=== PATIENT | male | born 1980 | race Caucasian/White ===

== ENCOUNTER 2017-07-27 12:08 | Emergency (ER) | payer OTHER ==
[~2017-07-27] VITALS: Ht 188 cm; Wt 74.4 kg
[~2017-07-27 12:08] MED LIST: BENTYL10 MG PO; BUSPIRONE HCL5 MG PO; EFFEXOR XR37.5 MG PO; EFFEXOR XR75 MG PO; HYDROCODON-ACE1 EA10 PO; LEVAQUIN500 MG PO; MOTRIN IB200 MG PO; NITROSTAT0.4 MG SL; NORCO 5-325 TA1 EACH PO; PRILOSEC OTC20 MG PO
[2017-07-27] MEDS ORDERED: ENSURE113 GM PO (12:31)
[2017-07-27] MEDS ORDERED: PREDNISONE20 MG PO (12:31)
[2017-07-27] MEDS ORDERED: SULFASALAZINE500 MG PO (12:32)
[2017-07-27] MEDS ORDERED: GOLYTELY SOLU4000 ML PO (15:36)
== END 2017-07-27 15:54 | disposition home or self-care (01) ==
LOC: ED 12:08
DX: K59.00 Constipation, unspecified (principal); Z87.891 Personal history of nicotine dependence; Z90.49 Acquired absence of other specified parts of digestive tract; Z88.0 Allergy status to penicillin; Z88.1 Allergy status to other antibiotic agents; Z79.52 Long term (current) use of systemic steroids
CPT/HCPCS: 74177; 80053; 81001; 83605; 83690; 85025; 96361; 96374; 96375; 99284; J1885; J2270; J2405; J7030; Q9967

== ENCOUNTER 2017-07-29 16:18 | Observation (INO) | payer OTHER ==
[~2017-07-29] VITALS: Ht 188 cm; Wt 80.0 kg
[~2017-07-29 16:18] MED LIST changes: +ENSURE113 GM PO; +GOLYTELY SOLU4000 ML PO; +PREDNISONE20 MG PO; +SULFASALAZINE500 MG PO
--- NOTE | 2017-07-29 18:09 | NUR ---
PT TO FLOOR WITH 2 GUARDS AND WHEELCHAIR. PT RATES PAIN IN ABDOMEN AND RECTUM /. ABDOMEN IS FIRM AND DISTENDED. 4 POINT RESTRAINTS. SOCKS UNDER LEG RESTRAINTS. NO IV ACCESS.
--- NOTE | 2017-07-29 18:56 | NUR ---
STARTED 20G IV IN LEFT FOREARM. PT TOLERATED WELL. JEROME LABS AND SENT DOWN. D5LR @ 125 STARTED. GUARDS INROOM.
--- NOTE | 2017-07-29 19:37 | NUR ---
PT TO IMAGING VIA WITH TECH AND MITCHEL X2, VIA WHEELCHAIR.
--- NOTE | 2017-07-29 21:30 | NUR ---
PT LAYING IN BED, WATCHING TV. REPORTS 05/08 PAIN, GAVE TORADOL FOR PAIN. PT STATES "TORADOL IS NOT GOING TO TOUCH THIS, THEY GAVE ME MORPHINE AND IT BARELY DID ANYTHING." PT ALSO REPORTED THAT DR PADILLA HAD SAID NO ENEMA'S WOULD BE GIVEN TONIGHT, PT REFUSED ENEMA AT THIS TIME, WILL CALL DR PADILLA AND CLARIFY ORDER. PT HAS BEEN UP TO THE BATHROOM SEVERAL TIMES VOIDING AND "TRYING TO HAVE A BM," ACCORDING TO PT AND MITCHEL. PT APPEARS RELAXED WHEN LAYING IN BED, CONVERSING WITH GUARDS AND WATCHING TV.
--- NOTE | 2017-07-29 21:35 | NUR ---
CLARIFIED ENEMA ORDER WITH DR PADILLA, ORDER WAS PLACED INCORRECTLY, NEW ORDERS RECIEVED AND PLACED IN EMAR. NO ENEMA TONIGHT. WILL WATCH FOR KUB IMAGES TONIGHT AND NOTIFY DR PADILLA WHEN THEY COME UP IN SYSTEM.
--- NOTE | 2017-07-29 22:29 | NUR ---
CALLED IMAGING IN REGARDS TO IMAGING THAT WAS DONE TONIGHT AT CHANGE OF SHIFT. MARY INFORMED RN THAT ORDER WAS NOT PUT IN STAT, SO THAT IT WOULD BE READ IN THE MORNING. RN REQUESTED IT BE READ TONIGHT, MARY STATED THAT SHE WOULD MAKE IT A STAT ORDER AND SEND IT TO GET READ TONIGHT.
--- NOTE | 2017-07-29 23:53 | NUR ---
checked in on pt. laying in bed, appears relaxed, watching motorcycle races on tv. continues to rate pain at "7-8/10," offered pt warm blankets, warm pack, or ice packs to help with pain, pt refused. also encouraged pt to ambulate in the halls, educated pt about how ambulating increases activity in the gut, pt refused at this time. pt has no needs at this time. call light in reach. noa x2 present. no redness or swelling around restraints.
--- NOTE | 2017-07-30 00:25 | NUR ---
PT CONTINUES TO COMPLAIN OF 8/10 PAIN. CALLED AND LEFT MESSAGE ON DR PADILLA'S VOICEMAIL.
--- NOTE | 2017-07-30 00:39 | NUR ---
NEW MEDICATION ORDER RECEIVED FOR PAIN/ANXIETY AND ENTERED INTO EMAR.
--- NOTE | 2017-07-30 01:02 | NUR ---
GAVE ATIVAN FOR ANXIETY AND PAIN. WILL CONTINUE TO MONITOR CLOSELY.
--- NOTE | 2017-07-30 01:37 | NUR ---
pt appears to be sleeping. rr wnl and unlabored. gaurds x2 remain in room. iv infusing wnl. lights out, tv on in room. call light within reach.
--- NOTE | 2017-07-30 03:39 | NUR ---
PT APPEARS TO BE SLEEPING. RR WNL AND UNLABORED. GAURDS REMAIN IN ROOM.
--- NOTE | 2017-07-30 06:54 | NUR ---
PT APPEARS TO BE SLEEPING. RR WNL AND UNLABORED. GAURDS IN ROOM. LIGHTS AND TV OFF IN ROOM.
--- NOTE | 2017-07-30 07:29 | NUR ---
REPORT RECIEVED FROM SEGUNDO WEST. PT ASLEEP, GUARDS IN ROOM. IV INFUSING. PT NPO FOR PROCEDURE.
--- NOTE | 2017-07-30 08:00 | NUR ---
Patient is laying in bed resting with his eyes closed at this time. white board updated.
--- NOTE | 2017-07-30 08:00 | NUR ---
ADMINISTERED IV MED. PT ASLEEP. WOKE WHEN ASKED QUESTIONS. GUARDS IN ROOM. RATES PAIN 7/10
--- NOTE | 2017-07-30 09:30 | NUR ---
Patient is resting in bed with eyes closed, SCD's applied to LLE.
--- NOTE | 2017-07-30 10:24 | NUR ---
PT OFF FLOOR WITH RN KIKI FOR SURGERY.
--- NOTE | 2017-07-30 11:26 | NUR ---
07/30/17 1126 Honey Fournier 1121-PATIENT ARRIVED TO PACU ON 6L MASK O2 SAT 99% SB HR 50'S NONAROUSABLE. ABDOMEN SOFT. GUARDS AT BEDSIDE.
--- NOTE | 2017-07-30 12:10 | NUR ---
PT BACK TO FLOOR WITH SEGUNDO LUNA FROM SCOPE. GUARDS IN ROOM. ASSISTED BACK TO BED AFTER BATHROOM. PT STATES HE WILL NOT DO THE ENEMA AND WOULD LIKE TO EAT. ALSO DID NOT WANT THE LAXATIVE MEDICATIONS. TOLD HIM HE HAD TO GET CLEANED OUT BEFORE EATING WOULD BE A GOOD IDEA. PT AGREED TO TAKE THE MEDICATIONS BUT NOT THE ENEMA. IVF AND SCDS REATTACHED. ORDERED LUNCH.
--- NOTE | 2017-07-30 15:48 | NUR ---
PT CONTINUES TO SLEEP. TALKED TO GUARDS FOR AWHILE AND PT DID NOT WAKE. IVF INFUSING.
--- NOTE | 2017-07-30 16:52 | NUR ---
PT CALLED TO SAY THAT HE IS "CRAPPING HIS BRAINS OUT". EXPLAINED THAT IT WAS THE GOAL AND EXPECTED. PT UPSET ABOUT THIS AND ARGUED THAT THIS WAS NOT "FIXING HIM". EXPLAINED THAT THE GOAL OF ADMISSION WAS GETTING RID OF THE IMPACTION AND HAVING A LOT OF STOOL WAS A GOOD SIGN.
--- NOTE | 2017-07-30 18:29 | NUR ---
PT OF FLOOR FOR XRAY. SL.
--- NOTE | 2017-07-30 18:41 | NUR ---
PT HAD SCOPE WITH LEVAGE. ABLE TO CLEAR MOST OF IT. ADMINSITERED SEVERAL LAXATIVES AND STOOL SOFT. TO RID REST OF STOOL . PT REPORTS ANAL LEAKAGE. KUB AT CHANGE OF SHIFT. DC IN THE MORNING.
--- NOTE | 2017-07-30 20:41 | NUR ---
Patient in bed, whiteboard updated, room tidied.
--- NOTE | 2017-07-30 21:08 | NUR ---
RECEIVED REPORT AT 1900. PT REFUSED SCHEDULED SENNA LAXATIVE. MD PADILLA WAS CALLED. PT STARTED TO GET AGITATED AND WANTED TO GO BACK TO [facility] BECAUSE I STRONGLY ADVISED HIM TO TAKE HIS SCHEDULED LAXATIVES. MD PADILLA CALLED BACK AT 2029 AND WE GOT ORDERS TO D/C THIS PT. D/C IS NOW IN PROGRESS. ALL LOBES WERE CLEAR, ABD IS MODERATELY DISTENDED, FIRM TO TOUCH AND TENDER. NORMAL BOWEL TONES ARE PRESENT IN ALL QUADRANTS. V/S ARE WDL.
[2017-07-30] MEDS ORDERED: SENNA8.6 MG PO (21:14)
[2017-07-30] MEDS ORDERED: REGLAN10 MG PO (21:14)
[2017-07-30] MEDS ORDERED: MIRALAX17 GM PO (21:15)
--- NOTE | 2017-07-30 21:39 | NUR ---
PT D/C AT 2131. IV D/C, EDUCATION DONE.
--- NOTE | 2017-08-01 08:27 | HP ---
[facility] [address], [place] [address] Signed ADMISSION DATE: 07/29/2017 PROBLEM: Probable fecal impaction, abdominal distention. HISTORY OF PRESENT ILLNESS: This 36-year-old white man is incarcerated at [facility], and a patient of Dr. Epifanio Garza there. He is known to me from the past having undergone treatment for a complex posterior [id number]-so-exr, requiring staged anal fistulotomy. He underwent colonoscopy prior to that time to assess for Crohn disease as it was uncertain regarding his family history. There was no such finding of Crohn's disease at that time. In the course of his convalescence, a number of months ago, the patient was transferred to [place], [place] in the [facility] system there. He recently returned to [place] having had an episode in September of this year of abdominal distention, probable fecal impaction. He was treated with various methods and ultimately recovered, though he does not remember many of the details. He did not require surgery or endoscopic evaluation. Most recently upon return to fci here, he was noted to have abdominal distention, liquid stools, and findings on CT scan performed in the past three days at [facility] to have probable fecal impaction including a fair amount of stool in the right colon, as well as the rectosigmoid. He was treated with an oral agent to induce bowel movements, which was unsuccessful. I saw him in the fci at the [facility] on Friday (yesterday), having been sent back to the fci from the emergency room the night before (Friday). A plain abdominal x-ray was performed at the fci, which I reviewed. That showed air in the left colon and transverse, and a fair amount of stool in the right colon, and probable stool in the rectum, and rectosigmoid. I had advised that he be given enemas. He did agree to one enema yesterday, and a rectal exam by Dr. Garza today apparently, showed stool, but the patient refused any further enema therapy. The patient describes poor control. I was called by Dr. Garza as progress was not being made with the patient's bowel function, and he did have abdominal distention, which was at least as much as it was yesterday. He has had no nausea or vomiting. He does not have severe abdominal pain in any way. He has been ambulating, and interacting as usual with others. There was some concern that his diarrhea and to dating this current episode was related to Crohn's disease; however, he has never had an established diagnosis of Crohn's disease. Steroids were withdrawn. He was taking prednisone 60 mg daily for a few days Electronically Signed By: KENIA PADILLA MD 08/01/17 0827 PATIENT NAME: KIARA YUN HISTORY AND PHYSICAL DATE OF : 78 PHYSICIAN: KENIA PADILLA MD REPORT #: [id number] REPORT IS CONFIDENTIAL AND NOT TO BE RELEASED WITHOUT AUTHORIZATION [address] [address] Signed at least. PAST MEDICAL HISTORY: Notable for a complex [id number]-vd-tty as previously described, but no other known significant medical problems otherwise. He underwent his completion complex fistulotomy on October 08, 2016. REVIEW OF SYSTEMS: He denies any shortness of breath or chest pain. He has had no hematemesis, or known blood per rectum. The patient feels he has poor sphincter control in some ways, but grossly is continent. The patient is suspicious of having another fistula, though my examination yesterday in the fci clinic showed a perfect healing of his anorectum, normal sphincter tone, and no evidence of fistula that I could see. PHYSICAL EXAMINATION: GENERAL: A thin white man with multiple tattoos accompanied by two fci guards. He has manacled at the ankles and wrists. HEENT: Trachea is midline. CHEST: Clear. HEART: Regular without murmur. ABDOMEN: Mildly distended. There is no focal mass or tenderness. EXTREMITIES: Show no clubbing, cyanosis, or edema. LAB STUDIES: Pending. A CBC and a Chem profile have been ordered. Note is made of the white count actually being 8.0, hematocrit 42.1, platelets 286,000. Plain abdominal x-rays are pending. ASSESSMENT: The patient has apparent fecal impaction causing poor bowel function and with a cathartic given from above two days ago in the emergency room has abdominal distention. He may require a manual disimpaction, but for now, we will obtain his abdominal KUB to be certain there is no sign of sigmoid volvulus or other similar problem, as well as provide a baseline for progress studies. We will give mineral oil orally, and a suppository tonight. Tomorrow, he may likely benefit from sedation with colonoscopy or other similar intervention in particular manual fecal disimpaction if indicated. This will be predicated upon the imaging studies of course. Electronically Signed By: KENIA PADILLA MD 08/01/17 0827 PATIENT NAME: KIARA YUN HISTORY AND PHYSICAL DATE OF : 78 PHYSICIAN: KENIA PADILLA MD REPORT #: [id number] REPORT IS CONFIDENTIAL AND NOT TO BE RELEASED WITHOUT AUTHORIZATION [facility] [address] [place] [place], [place] [address] Signed MD ZAC Loco/KOBE /[id number] cc: Epifanio Garza MD Electronically Signed By: KENIA PADILLA MD 08/01/17 0827 PATIENT NAME: KIARA YUN HISTORY AND PHYSICAL DATE OF : 78 PHYSICIAN: KENIA PADILLA MD REPORT #: [id number] REPORT IS CONFIDENTIAL AND NOT TO BE RELEASED WITHOUT AUTHORIZATION
--- NOTE | 2017-08-01 08:27 | OR ---
[facility] [address] [place], [place] [address] Signed DATE OF OPERATION: 07/30/2017 SURGEON: Kenia Padilla MD PREOPERATIVE DIAGNOSIS: Recurrent fecal impaction, uncertain history of possible Crohn's disease. POSTOPERATIVE DIAGNOSES: 1. No evidence of inflammatory bowel disease. 2. Soft fecal material in high rectum and portions of right colon. PROCEDURE: Total colonoscopy with lavage and decompression. ANESTHESIA: Intravenous sedation, propofol infusion. Jenny Layne CRNA INDICATION: This is a 36-year-old white man, who is a prisoner at [facility] and the patient of Dr. Epifanio Garza. He is known to me from the past for complex perianal fistula repair. He has never been proven to have Crohn's disease, though he does have a family history of it. In September of this year, in [place], [place], he had an episode of probable fecal impaction, which resolved with nonsurgical methods. He has had recurrent apparent impaction of stool recently several days ago in [facility], undergoing CT scan of the abdomen confirming stool in the rectum and right colon, seen elsewhere. He was treated with a MiraLAX prep from above, which only caused abdominal distention and not improve his situation. He was seen in the [facility] by me two days ago at my [facility] clinic, having a repeat KUB with complaints of bloating and so forth. He did have an abdominal distention to be sure. The x-ray did not show resolution of some distended air in the left colon and sigmoid, it did not show cecal enlargement or any evidence of volvulus. The enema therapy was initiated under the direction of Dr. Garza, but the patient ultimately refused any further enemas, and given his vexing situation I accepted him in transfer from Dr. Garza, from the [facility] for admission yesterday for further evaluation and care. His lab studies are normal including CBC. A plain KUB performed at [facility] yesterday shows air in the left colon and transverse colon, some stool in the rectum and Electronically Signed By: KENIA PADILLA MD 08/01/17 0827 PATIENT NAME: KIARA YUN OPERATIVE REPORT DATE OF : 78 PHYSICIAN: KENIA PADILLA MD REPORT #: [id number] REPORT IS CONFIDENTIAL AND NOT TO BE RELEASED WITHOUT AUTHORIZATION [facility] [address] [place], [place] [address] Signed some stool in the right colon. The x-ray today showed some improvement. He was given only a glycerin suppository and mineral oil orally yesterday. He has not had any significant fecal output particularly. On that basis, he is taken to IV sedation, where he will undergo colonic evaluation to assess for stricture, neoplasm that is causing obstruction as well as colonic lavage and decompression as appropriate. He understands risks of bleeding, infection, perforation, and wished to proceed. FINDINGS: There is soft stool on rectal exam in the mid to upper rectum. There was certainly no hard mass in anyway. With colonoscopy, the area was able to be skirted and scope passed beyond this quite easily. Most of the colon had no stool in it. The right colon and parts of sigmoid had some stool, but it was all soft. Lavage was undertaken throughout the colon and minimal air insufflated. There were no complications. Of special note, there was no sign of inflammatory bowel disease, stricture, neoplasm. DESCRIPTION OF PROCEDURE: The patient was brought to the endoscopy suite and placed in lateral decubitus position. Abdominal palpation was undertaken showing less distention than yesterday. He had no tenderness. He was given intravenous sedation with propofol infusional technique by the supervisor buffing and pasting with full cardiopulmonary monitoring. Digital rectal examination was undertaken showing no stool, low in the rectum, and only a soft putty-like stool at the high rectum. The Olympus video colonoscope was passed in the rectum and there was no evidence of inflammatory bowel disease of the rectum. With air insufflation and some irrigation, the stool was able to be directed to the side and the scope passed beyond the stool bolus into the rectosigmoid, which was largely free of any stool. The scope was advanced rather easily to the left colon and transverse colon, taking special care to avoid insufflation of air as much as possible. Ultimately, the hepatic flexure and right colon were encountered. Irrigation was undertaken and soft stool was once again encountered. The scope was manipulated past this ultimately to the cecum. Fair amount of irrigation was used to lavage the colon in this way. Once the cecum was obtained, no further passage of the scope was deemed advisable or particularly possible. The ileocecal valve was not surely identified, though landmarks were highly suggestive that this represented the cecal area. Abdominal wall palpation confirmed this. The scope was then withdrawn with irrigation of the water that was used for the scope, and decompression of endoscopic methods undertaken. The scope was ultimately passed to the rectum and again confirming no evidence of inflammatory bowel disease or anatomic stricture causing occlusion in anyway. The patient was taken to the recovery room in good condition. CONCLUDING DIAGNOSIS: Functional constipation problem, not known to be a lifelong issue. Electronically Signed By: KENIA PADILLA MD 08/01/17 0827 PATIENT NAME: KIARA YUN MARIAH OPERATIVE REPORT DATE OF : 78 PHYSICIAN: KENIA PADILLA MD REPORT #: [id number] REPORT IS CONFIDENTIAL AND NOT TO BE RELEASED WITHOUT AUTHORIZATION [facility] [address] [place] [address] Signed PLAN: We will initiate Reglan for his gastrointestinal stimulatory activity. We will recommend at least one tap water enema and initiate mag citrate ingestion of one bottle and Senokot as a stimulant laxative. MD ZAC Loco/MODL /[id number] cc: Epifanio Garza MD Electronically Signed By: KENIA PADILLA MD 08/01/17 0827 PATIENT NAME: KIARA YUN OPERATIVE REPORT DATE OF : 78 PHYSICIAN: KENIA PADILLA MD REPORT #: [id number] REPORT IS CONFIDENTIAL AND NOT TO BE RELEASED WITHOUT AUTHORIZATION
== END 2017-07-30 21:32 | disposition home or self-care (01) ==
LOC: MS 16:18
PROVIDERS: ADMIT Surgery
PROC: 0D7E8ZZ Dilation of Large Intestine, Via Natural or Artificial Opening Endoscopic (ICD-10-PCS; principal; 2017-07-30 11:15)
DX: K59.04 Chronic idiopathic constipation (principal); K31.9 Disease of stomach and duodenum, unspecified; Z88.1 Allergy status to other antibiotic agents; Z88.0 Allergy status to penicillin
CPT/HCPCS: 00810; 74000; 74020; 80053; 82247; 82465; 83615; 84100; 84478; 84550; 85025; 96374; 96375; 96376; G0378; J1885; J2060; J2250; J2405; J2704; J3010; J7120

== ENCOUNTER 2017-08-02 00:25 | Emergency (ER) | payer OTHER ==
[~2017-08-02] VITALS: Ht 188 cm; Wt 76.2 kg
[~2017-08-02 00:25] MED LIST changes: +MIRALAX17 GM PO; +REGLAN10 MG PO; +SENNA8.6 MG PO
[2017-08-02] MEDS ORDERED: LEXAPRO5 MG PO (00:42)
== END 2017-08-02 03:16 | disposition home or self-care (01) ==
LOC: ED 00:25
DX: K59.00 Constipation, unspecified (principal); Z87.891 Personal history of nicotine dependence; Z90.49 Acquired absence of other specified parts of digestive tract; Z88.0 Allergy status to penicillin; Z88.1 Allergy status to other antibiotic agents; Z79.899 Other long term (current) drug therapy
CPT/HCPCS: 74000; 80053; 81001; 83690; 85025; 99283

== ENCOUNTER 2017-10-16 11:43 | Inpatient (IN) | payer OTHER ==
[~2017-10-16] VITALS: Ht 188 cm; Wt 76.4 kg
[~2017-10-16 11:43] MED LIST changes: +LEXAPRO10 MG PO
[2017-10-23] MEDS ORDERED: NORCO 5-325 TA1 EACH PO (06:08)
[2017-10-23] MEDS ORDERED: LINZESS290 MCG PO (06:08)
[2017-10-23] MEDS ORDERED: DULCOLAX10 MG PR (15:52)
--- NOTE | 2017-10-23 19:45 | OR ---
[facility] [address], [place] [address] Signed DATE OF OPERATION: 10/23/2017 SURGEON: Kenia Padilla MD PREOPERATIVE DIAGNOSIS: Severe progressive symptomatic colonic inertia. POSTOPERATIVE DIAGNOSIS: Severe progressive symptomatic colonic inertia. PROCEDURE: Subtotal colectomy with side-to-end ileoproctostomy. ANESTHESIA: General endotracheal, Lelo Harrell CRNA. INDICATION: This 37-year-old white man, who is incarcerated at [facility] and has had progressive episodes of dilated colon and poor bowel function. Many details of his evaluation along the way can be found in another record, but he is deemed at this time to likely have severe colonic dysmotility syndrome, unresponsive to medications and other measures including Linzess. Consideration has been made for subtotal colectomy to improve his symptoms. He understands the risks of bleeding, infection, anastomotic failure and most importantly failure to cure his symptoms, however, I think it will. He has no known history of inflammatory bowel disease. Colonoscopy has been normal except for dilated colon. No polyps and no cancer. FINDINGS: The colon was redundant and dilated. There were areas of solid stool within the colon. The rectum was dilated and the sigmoid and left colon was essentially nonfixed. The right colon also, however, was rather dilated. Both the splenic flexure and hepatic flexure are quite high and challenging to mobilize fully, but was accomplished well. The small bowel was entirely normal as was the stomach, gallbladder, and liver. He is known to have hepatitis C, which showed no manifestations of that on examination. By conclusion, a side-to-end ileoproctostomy has been accomplished to the mid upper rectum. The peritoneum has been reapproximated largely so as to minimize raw surface area to minimize chances of adhesion formation for small bowel. DESCRIPTION OF PROCEDURE: The patient was brought to the operating room, given a general endotracheal anesthetic. Electronically Signed By: KENIA PADILLA MD 10/23/17 1945 PATIENT NAME: KIARA YUN OPERATIVE REPORT DATE OF : 78 PHYSICIAN: KENIA PADILLA MD REPORT #: [id number] REPORT IS CONFIDENTIAL AND NOT TO BE RELEASED WITHOUT AUTHORIZATION [facility] [address], [place] [address] Signed Preoperative antibiotic Ancef and Flagyl were given. Sequential compression device stockings were used and heparin subcutaneously administered. After satisfactory general endotracheal anesthesia, the abdomen was prepared with chlorhexidine solution and draped sterilely. An incision was made cephalad to the umbilicus and extended to the symphysis pubis. The patient does not have a large body habitus. The abdomen was entered without problem and examination undertaken. A very redundant and dilated left colon and transverse colon were noted. There was solid stool particularly in the mid to upper rectum had small bowel was examined from the ligament of Treitz to the terminal ileum, which was normal. 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 The gallbladder itself was normal as was the liver. There was no evidence of cirrhotic changes. The stomach was normal as well as nasogastric tube was used to decompress it temporarily. A Bookwalter retractor was affixed to the table and the small bowel packed to the right side of the abdomen. The white line of Toldt was incised at the area of the left colon and sigmoid dissection carried inferiorly. Very redundant and nonfixed sigmoid and left colon were noted. This was freed down to the upper to mid rectum. Dissection was carried cephalad allowing for mobilization of splenic flexure. This was rather long and laborious as splenic flexure of the colon was extremely high. This required a fair amount of manipulation, so as to not require extending the incision any higher than necessary. Ultimately, it was freed fully. The bowel was then packed to the left side of the abdomen and attention turned to the right colon. The right colon was freed from its attachments using blunt electrocautery dissection, mobilizing it to the midline as well. The C-loop of the duodenum was identified and unharmed of course. Over the transverse colon, the omentum was freed from the transverse colon, leaving it with the stomach. The stomach was normal. The transverse mesocolon was free completely in an anatomic and avascular plane. A fair amount of adhesions of the hepatic flexure up to the area of the gallbladder, more so than I would have expected, but ultimately this was freed as well. Ultimately, the entire colon including the right transverse, left sigmoid and so forth were completely mobilized. Attention was then turned towards securing of the mesenteric pedicles. Again, beginning at the sigmoid colon, major vascular pedicles were secured with heavy clamps and doubly ligated with 0 silk ties, scoring the peritoneum as I went. This included approximately to the region in the middle colic artery into the right side as well. Care was taken to leave good vascularity to the ileum. The colon was at this point almost completely freed. A HEIDE stapling device was used to transect the terminal ileum and flushed with the cecum. The long colon appeared like a boa constrictor at this point was explanted from the abdomen and the lower aspect dissected free. The rectum was rather bulky and some semi-formed stool in the rectum was milked back into the sigmoid area. The area of Electronically Signed By: KENIA PADILLA MD 10/23/171944 PATIENT NAME: KIARA YUN OPERATIVE REPORT DATE OF : 78 PHYSICIAN: KENIA PADILLA MD REPORT #: [id number] REPORT IS CONFIDENTIAL AND NOT TO BE RELEASED WITHOUT AUTHORIZATION [facility] [address], [place] [address] Signed the mid to upper rectum was deemed appropriate for transection. Electrocautery was used to free the mesentery to that area and 2 bowel clamps applied. The rectum was transected transversely with prostate scissors and passed off the table. Photographs were taken throughout the course of operation thus far including the specimen itself. The small bowel was then examined carefully in the natural anatomic position of the small bowel discerned to allow for a non-torsed tension-free ileorectal anastomosis. The stapled end of the terminal ileum was oversewn with interrupted 3-0 silk suture. A side-to-end ileoproctostomy was then undertaken in 2-layer technique of interrupted 3-0 silk in a seromuscular layer and 3-0 Vicryl in the mucosal layer. A tension-free anastomosis was completely viable was noted. The raw surfaces of the retroperitoneum were covered by reapproximating peritoneal remnants with interrupted 3-0 silk suture. Irrigation was undertaken and gown and gloves were changed. Photographs were once again taken. Through a separate stab incision, a 7 mm flat Aquiles drain was placed into the left abdomen, anticipating drainage of pelvic fluid as necessary. The omentum was replaced over the abdominal viscera after the small bowel was replaced to a normal anatomic configuration. The midline fascia was reapproximated with running bidirectional #1 PDS suture. Subcutaneous tissue was irrigated and 20 mL of 0.25% Marcaine was injected in the fascial layer for postoperative analgesic effect. The skin was then closed with running subcuticular 3-0 Vicryl. Steri-Strips were applied as was Mepilex silver sponge dressing and an OpSite. The patient tolerated the procedure well. The operation was prolonged, complicated, and difficult lasting 4 hours essentially. There were no complications. Blood loss was 150 mL (probably less really). MD ZAC Loco/MONAL /[id number] cc: Epifanio Garza MD Electronically Signed By: KENIA PADILLA MD 10/23/17 1945 PATIENT NAME: JAMAKIARA MARIAH OPERATIVE REPORT DATE OF : 78 PHYSICIAN: KENIA PADILLA MD REPORT #: [id number] REPORT IS CONFIDENTIAL AND NOT TO BE RELEASED WITHOUT AUTHORIZATION
--- NOTE | 2017-10-31 14:18 | OR ---
[facility] [address], [place] [address] Signed DATE OF OPERATION: 10/30/2017 SURGEON: Kenia Padilla MD PREOPERATIVE DIAGNOSIS: Persistent ileus, need for total parental nutrition. POSTOPERATIVE DIAGNOSIS: Persistent ileus, need for total parental nutrition. PROCEDURE: Left subclavian Arrow blue tip triple-lumen catheter, central venous catheter placement. ANESTHESIA: A 1% lidocaine. INDICATION: This 37-year-old white man is incarcerated at [facility] and has undergone subtotal colectomy with ileoproctostomy for colonic inertia. He has had developed early on a generalized ileus, which has been unresponsive to the usual measures. Central venous catheterization for TPN is needed at this point. The risks of bleeding, infection, and pneumothorax were reviewed with him. He understands and wished to proceed. FINDINGS: Dark nonpulsatile blood was noted from the left subclavian vein. Good function of the catheter was noted at the conclusion of the procedure. Postprocedure chest x-ray shows no evidence of complication and good position of the catheter. DESCRIPTION OF PROCEDURE: In the mild Trendelenburg position with the arms at the side, the left infraclavicular and right neck and right infraclavicular area prepared with a chlorhexidine solution and draped sterilely. A 1% lidocaine was injected beneath the left clavicle. Using a Seldinger technique, the left subclavian vein was easily accessed showing dark nonpulsatile blood. A flexible J-wire was passed down the needle. The needle was removed. The site was incised with an #11 blade and dilated with the enclosed blue dilator and a previously inspected and irrigated Arrow blue tip triple-lumen catheter was passed over the wire into the central venous system. The wire was then withdrawn. Aspiration on the distal port showed dark nonpulsatile blood. All ports were irrigated with saline. The catheter was withdrawn a bit, secured to the skin with the enclosed Electronically Signed By: KENIA PADILLA MD 10/31/17 1418 PATIENT NAME: KIARA YUN OPERATIVE REPORT DATE OF : 78 PHYSICIAN: KENIA PADILLA MD REPORT #: [id number] REPORT IS CONFIDENTIAL AND NOT TO BE RELEASED WITHOUT AUTHORIZATION [address] [address] Signed collar device, and additionally secured to the catheter. An anti-infective disc was applied as was a SorbaView dressing. Subsequently, a chest x-ray was performed showing good position of the catheter without sign of complication. MD ZAC Loco/KOBE /[id number] cc: Epifanio Garza MD Electronically Signed By: KENIA PADILLA MD 10/31/17 1418 PATIENT NAME: KIARA YUN OPERATIVE REPORT DATE OF : 78 PHYSICIAN: KENIA PADILLA MD REPORT #: [id number] REPORT IS CONFIDENTIAL AND NOT TO BE RELEASED WITHOUT AUTHORIZATION
[2017-11-02] MEDS ORDERED: MAPAP325 MG PO (09:58)
[2017-11-02] MEDS ORDERED: IBUPROFEN600 MG PO (09:58)
[2017-11-02] MEDS ORDERED: FAMOTIDINE20 MG PO (10:00)
--- NOTE | 2017-11-04 10:43 | DS ---
[facility] [address], [place] [address] Signed ADMISSION DATE: 10/23/2017 DISCHARGE DATE: 11/02/2017 REASON FOR ADMISSION: This 37-year-old white man is incarcerated at [facility] retirement and a patient of Dr. Epifanio Garza there. He has had progressive episodes over the past few years of dilated colon and poor bowel function. He is ultimately deemed likely to have severe colonic dysmotility syndrome (colonic inertia), unresponsive to medications and other measures including Linzess medication. He is admitted at this time to undergo subtotal colectomy to improve his symptoms. He understands the risks of bleeding, infection, anastomotic failure, failure to cure his symptoms and other unforeseen complications. Understanding this, he wished to proceed. Of note, he has had colonoscopy, which has been normal except for dilated colon. No polyps or cancer or colitis. PERTINENT PHYSICAL EXAM: GENERAL: A thin white man with multiple tattoos. NECK: Trachea is midline. CHEST: Clear. HEART: Regular without murmur. ABDOMEN: Generally distended. He has no focal tenderness, mass or ascites. EXTREMITIES: Show no clubbing, cyanosis, or edema. HOSPITAL COURSE: On October 23, 2017, he underwent subtotal colectomy with side-to-end ileoproctostomy. Special care was taken to align the small bowel for rectal anastomosis and anatomically appropriate configuration based on the patient's small bowel. The small bowel itself was entirely normal, not dilated, thin and without sign of inflammatory lesions or other problems. A drain was placed in the pelvis. The anastomosis was to the upper to mid rectum. There were no other findings in the abdomen of concern, specifically the liver appeared normal despite a known history of hepatitis C. The gallbladder appeared normal as well. Postoperatively, he was allowed to have clear liquids promptly after operation in efforts to enhance recovery after surgery. He was not given any opiates during the anesthesia itself, though postoperatively was given a Dilaudid and subsequently a morphine OTHER [employer]. Predictably, he did have some considerable incisional pain. He was also given intravenous Tylenol, intravenous Toradol, and intravenous Ativan as needed for assistance in his pain control. He was mobilized promptly. Within 48 hours, he had developed what appeared to be a rather considerable ileus. KUB showed dilated loops of bowel. Electronically Signed By: KENIA PADILLA MD 11/04/17 1043 PATIENT NAME: KIARA YUN DISCHARGE SUMMARY DATE OF : 78 PHYSICIAN: KENIA PADILLA MD REPORT #: [id number] REPORT IS CONFIDENTIAL AND NOT TO BE RELEASED WITHOUT AUTHORIZATION [facility] [address], [place] [address] Signed A nasogastric tube was reluctantly accepted, which I placed, in which it passed without problem delivering a fair amount of bilious fluid. That was allowed to remain for nearly 72 hours, at which point, he began having some bowel function, though he still had some abdominal distention. The nasogastric tube was removed and he was not advanced on his oral intake, but allowed for the bowel to recuperate. He was started on intravenous Reglan and erythromycin in hopes of having some stimulation of the small bowel. Serial x-rays continued to show fair amount of air within the bowel. A CT scan was performed to be certain there was no evidence of internal hernia, volvulus, or other impediment to enteric flow and it showed only dilated loops of bowel. No sign of obstruction or torsion in any way. There was no sign of intraabdominal abscess. The drain was placed in the pelvis, drained serosanguineous fluid only. A central line was placed to allow for TPN. It is noted he had marginal baseline nutrition to begin with due to several months of poor oral intake. Within 24-48 hours, he had improvement of his bowel function, liquid bowel movements and decreasing abdominal distention. His prokinetic agents were withdrawn and he was clearly withdrawn from any opiate use despite some protestation from him, though his pain was actually well controlled with intravenous Tylenol, Toradol, and ultimately oral analgesic agents. By day of discharge, he is ambulating well. Incision is healing nicely. The drain has been removed. He is having bowel movements, though generally liquid, but well controlled and has far less abdominal distention. Plain abdominal x-ray the day prior to discharge still shows air within the small bowel, but no signs of obstruction. I expect him to continue to recover. The patient wants to be discharged quite a bit and has been somewhat disruptive in that intention, but I believe he is medically ready to be discharged under the watchful eye of Dr. Garza, likely to go to the [facility]. DIETARY RESTRICTIONS: Include primarily avoidance of soda pop and carbonated beverages. He will be strictly forbidden of opiates of any sort as they are likely an underlying cause of his enteric dysmotility perioperatively. The patient was on Lexapro previously and this can have gastrointestinal effects commonly including diarrhea or constipation. I would avoid those or choose another agent if possible. Electronically Signed By: KENIA PADILLA MD 11/04/17 1043 PATIENT NAME: KIARA YUN MARIAH DISCHARGE SUMMARY DATE OF : 78 PHYSICIAN: KENIA PADILLA MD REPORT #: [id number] REPORT IS CONFIDENTIAL AND NOT TO BE RELEASED WITHOUT AUTHORIZATION [facility] [address], [place] [address] Signed FOLLOWUP PLANS: We will see him back in the retirement clinic in the near future. He is permitted to walk. He is permitted to shower. There are no sutures to remove. Steri-Strips are in place. He should lift no more than 20 pounds for the next 3 weeks. DISCHARGE MEDICATIONS: 1. Ibuprofen 600 mg p.o. q.6 hours p.r.n. pain, #60. 2. Tylenol 650 mg p.o. q.6 hours p.r.n. pain, #90. 3. Pepcid 20 mg p.o. b.i.d., #60. 4. Nutritional supplement, Ensure two times daily as able. 5. He will discontinue [place], which he is previously on, Linzess, Dulcolax, Lexapro, and Reglan. DISCHARGE DIAGNOSES: 1. Colonic inertia, status post subtotal colectomy with ileorectal anastomosis. 2. Postoperative ileus (resolved). 3. Hepatitis C. 4. Anxiety, depression disorder. 5. Allergy to penicillins and Cipro. FOLLOWUP: He will have to see me in retirement clinic in the near future. MD ZAC Loco/KOBE /[id number] cc: Epifanio Garza MD Electronically Signed By: KENIA PADILLA MD 11/04/17 1043 PATIENT NAME: KIARA YUN DISCHARGE SUMMARY DATE OF : 78 PHYSICIAN: KENIA PADILLA MD REPORT #: [id number] REPORT IS CONFIDENTIAL AND NOT TO BE RELEASED WITHOUT AUTHORIZATION
== END 2017-11-02 10:56 | disposition home or self-care (01) | DRG 330 ==
LOC: DSVR 10-23 05:26 → MS 10-23 05:26
PROVIDERS: ADMIT Surgery
PROC: 0DBE0ZZ Excision of Large Intestine, Open Approach (ICD-10-PCS; principal; 2017-10-23 06:45)
PROC: 05H633Z Insertion of Infusion Device into Left Subclavian Vein, Percutaneous Approach (ICD-10-PCS; 2017-10-30)
PROC: 3E0436Z Introduction of Nutritional Substance into Central Vein, Percutaneous Approach (ICD-10-PCS; 2017-10-30)
DX: K59.8 Other specified functional intestinal disorders (principal); K56.7 Ileus, unspecified; Z88.0 Allergy status to penicillin
CPT/HCPCS: 00790; 36415; 71045; 74019; 74020; 74177; 80048; 80053; 80061; 82247; 82465; 83615; 83735; 84100; 84134; 84478; 84550; 85025; 85610; 85730; 94762; J0131; J0330; J0690; J0735; J1100; J1170; J1364; J1644; J1885; J2060; J2250; J2270; J2405; J2550; J2704; J2765; J2997; J3010; J3475; J7120; Q9967

== ENCOUNTER 2017-11-08 14:53 | Emergency (ER) | payer OTHER ==
[~2017-11-08] VITALS: Ht 188 cm; Wt 76.4 kg
[~2017-11-08 14:53] MED LIST changes: +DULCOLAX10 MG PR; +FAMOTIDINE20 MG PO; +IBUPROFEN600 MG PO; +LINZESS290 MCG PO; +MAPAP325 MG PO
[2017-11-08] MEDS ORDERED: ZOFRAN ODT4 MG PO (17:38)
== END 2017-11-08 17:48 | disposition home or self-care (01) ==
LOC: ED 14:53
DX: R10.9 Unspecified abdominal pain (principal); Z90.49 Acquired absence of other specified parts of digestive tract; Z87.891 Personal history of nicotine dependence; Z88.0 Allergy status to penicillin; Z88.1 Allergy status to other antibiotic agents; Z79.899 Other long term (current) drug therapy
CPT/HCPCS: 74177; 80053; 81001; 83605; 83690; 85025; 96361; 96374; 99284; J2405; J7030; Q9967

== ENCOUNTER 2020-04-21 20:34 | Observation (INO) | payer OTHER ==
[~2020-04-21] VITALS: Ht 188 cm; Wt 89.4 kg
--- OUTSIDE RECORDS SUMMARY | ~2020-04-21 | XMS | Encounter Summary ---
Demographics + + + | Address | [address] | | | [place] [address] | + + + | Home Phone | | + + + | Preferred Language | Unknown | + + + | Marital Status | Single | + + + | Yazidism Affiliation | Unknown | + + + | Race | Unknown | + + + | Ethnic Group | Unknown | + + + Author + + + | Author | [facility] | | | and [place] | + + + | Organization | [facility] | | | and [place] | + + + | Address | Unknown | + + + | Phone | Unavailable | + + + Support + + +---------+ + | Name | Relationship | Address | Phone | + + +---------+ + | [place] | ECON | Unknown | | | Corrections | | | | + + +---------+ + Care Team Providers + +------+ + | Care Textile Stylist Name | Role | Phone | + +------+ + | Kevin Martin MD | PCP | | + +------+ + Encounter Details +--------+ + + + + | Date | Type | Department | Care Team | Description | +--------+ + + + + | 09/16/ | Orders Only | [facility] | [place], | Diarrhea, | | 2019 | | GENERAL SURG[address] | unspecified type | | | | [address] | [address] | (Primary Dx) | | | | [place], [place] | [place] [address] | | | | | [id number] | [phone] | | | | | [phone] | | | +--------+ + + + + Social History + +-------+ +--------+------+ | Tobacco Use | Types | Packs/Day | Years | Date | | | | | Used | | + +-------+ +--------+------+ | Former Smoker | | 1.5 | | | + +-------+ +--------+------+ + +---+---+---+ | Smokeless Tobacco: | | | | | Former User | | | | + +---+---+---+ + + +---------+ + | Alcohol Use | Drinks/Week | oz/Week | Comments | + + +---------+ + | Not Currently | | | | + + +---------+ + + + + | Sex Assigned at | Date Recorded | | | | + + + | Not on file | | + + + documented as of this encounter Plan of Treatment Not on filedocumented as of this encounter Visit Diagnoses + + | Diagnosis | + + | Diarrhea, unspecified type - Primary | + + documented in this encounter"
--- OUTSIDE RECORDS SUMMARY | ~2020-04-21 | XMS | Encounter Summary ---
Demographics + + + | Address | [address] | | | [place] [address] | + + + | Home Phone | | + + + | Preferred Language | Unknown | + + + | Marital Status | Single | + + + | Mormon Affiliation | Unknown | + + + | Race | Unknown | + + + | Ethnic Group | Unknown | + + + Author + + + | Author | [facility] | | | and [place] | + + + | Organization | [facility] | | | and [place] | + + + | Address | Unknown | + + + | Phone | Unavailable | + + + Support + + +---------+ + | Name | Relationship | Address | Phone | + + +---------+ + | [place] | ECON | Unknown | | | Corrections | | | | + + +---------+ + Care Team Providers + +------+ + | Care Nonprofit Manager Name | Role | Phone | + +------+ + | Kevin Nath MD | PCP | | + +------+ + Reason for Referral Diagnostic/Screening (Routine) + +--------+ + + + + | Status | Reason | Specialty | Diagnoses / | Referred By | Referred To | | | | | Procedures | Contact | Contact | + +--------+ + + + + | Pending | | Radiology | Diagnoses | Ailbrendani, | [facility] | | Review | | | Lower | Delroy Miller MD | REGIONAL | | | | | abdominal | [address] | MEDICAL | | | | | pain | [address] | [address] | | | | | Procedures | [address] | | | | | CT Abdomen | [place], [place] | [place], [place] | | | | | Pelvis w | [address] | [address] | | | | | Contrast | Phone: | Phone: | | | | | | [phone] | [phone] | | | | | | Fax: | Fax: | | | | | | [phone] | [phone] | + +--------+ + + + + Reason for Visit Auth/Cert +--------+--------+ + + + + | Status | Reason | Specialty | Diagnoses / | Referred By | Referred To | | | | | Procedures | Contact | Contact | +--------+--------+ + + + + | | | | Diagnoses | | | | | | | Diarrhea, | | | | | | | unspecified | | | | | | | type | | | | | | | Procedures | | | | | | | COLONOSCOPY | | | +--------+--------+ + + + + Encounter Details +--------+ + + + + | Date | Type | Department | Care Team | Description | +--------+ + + + + | 11/24/ | Hospital | [facility] | Delroy Lyons, | Diarrhea, | | 2020 | Encounter | [facility] | [address] | unspecified type; | | | | INTRA OP [address] | [address] | Lower abdominal pain | | | | BLVD [place], [place] | [place] [address] | | | | | [address] | [phone] | | | | | [phone] | | | +--------+ + + + [...] + + documented as of this encounter Last Filed Vital Signs + + + + + | Vital Sign | Reading | Time Taken | Comments | + + + + + | Blood Pressure | 126/81 | 11/24/2019 9:04 AM | | | | | PST | | + + + + + | Pulse | 66 | 11/24/2019 9:04 AM | | | | | PST | | + + + + + | Temperature | 36.8 C (98.3 F) | 11/24/2019 9:04 AM | | | | | PST | | + + + + + | Respiratory Rate | 16 | 11/24/2019 9:04 AM | | | | | PST | | + + + + + | Oxygen Saturation | 99% | 11/24/2019 9:04 AM | | | | | PST | | + + + + + | Inhaled Oxygen | - | - | | | Concentration | | | | + + + + + | Weight | 77.1 kg (170 lb) | 11/24/2019 7:42 AM | | | | | PST | | + + + + + | Height | 188 cm (6' 2") | 11/24/2019 7:42 AM | | | | | PST | | + + + + + | Body Mass Index | 21.83 | 11/24/2019 7:42 AM | | | | | PST | | + + + + + documented in this encounter Medications at Time of Discharge + + + +---------+ + + | Medication | Sig | Dispensed | Refills | Start | End Date | | | | | | Date | | + + + +---------+ + + | dicyclomine | Take 20 mg by mouth | | 0 | | | | (BENTYL) 20 MG | every 6 hours. | | | | | | tablet | | | | | | + + + +---------+ + + | lamoTRIgine | Take 150 mg by mouth | | 0 | | | | (LAMICTAL) 150 MG | nightly. | | | | | | tablet | | | | | | + + + +---------+ + + | venlafaxine | Take 150 mg by mouth | | 0 | | | | (EFFEXOR XR) 150 mg | daily (with | | | | | | 24 hr tablet | breakfast). | | | | | + + + +---------+ + + | calcium | Take 1 tablet by | 90 | 0 | 11/24/19 | | | polycarbophil | mouth 2 times daily | tablet | | 20 | 0 | | (FIBERCON) 625 mg | for 90 days. | | | | | | tablet | | | | | | + + + +---------+ + + documented as of this encounter H&P Notes Delroy Lyons MD - 11/24/2019 8:33 AM PSTFormatting of this note might be different f rom the original. Service: Colorectal Surgery History & Physical ID: Dylon Melissa; DATE OF VISIT: 11/24/2019 History Obtained From: History obtained from chart review and the patient. CHIEF COMPLAINT: diarrhea HISTORY OF PRESENT ILLNESS 11/24/19: no new complaints From my note may 2019: The patient is a 38 y.o. male who presents with various complaints including anal pain and bleeding. Patient presented sometime last year with a complaint of slow transit constipatio n and abdominal pain and the thought was a subtotal colectomy could help alleviate his sympt oms although the symptom of constipation is now gone he still complaining of abdominal pain and intolerant to some type of food that he is trying to do diet and examination to figure o ut. He also started complaining and mainly due to the frequency of stooling in the characte r of the stool of anal pain and irritation. Patient said he had tried Imodium but this did not help much and some of the fiber supplements he took and gave her more runny stool and fo rmed stool. [place] Sander needed: no Last colonoscopy: yes Rectal Bleeding:yes Bleeding bright red or dark red: yes Blood on Toilet Paper: yes Blood in Toilet Water: yes Feel rectum is falling out of anus: no Does rectum go back in spontaneously: no Have to push the rectum back in manually: no Ever unable to push rectum back in: no Severe pain around the anus: yes Feel a ripping at the anus with bowel movements: yes Have itching/burning at the anus: yes Ever have anal warts: no Have drainage from the anus: no Incontinent to solid stool: no Incontinent to liquid stool: no Incontinent to gas: no trauma that required stitches: no Abdominal pain or cramps: no Family member with colon cancer at age less than 50: no Family member with colon polyps: no Family member with more than 10 colon polyps: no Need antibiotics prior to dental procedure: no Active comorbid conditions include: - dysrhythmias - GERD - Drugs/Alcohol/Tobacco - tobacco use REVIEW OF SYSTEMS Review of Systems All other systems reviewed and are negative. Past Medical History: Diagnosis Date GERD (gastroesophageal reflux disease) Past Surgical History: Procedure Laterality Date APPENDECTOMY OTHER SURGICAL HISTORY right side of chest wall TONSILLECTOMY AND ADENOIDECTOMY Allergies Allergen Reactions Penicillins Anaphylaxis Venlafaxine Other (See Comments) Ciprofloxacin Rash Rash Medications Prior to Admission Medication Sig Dispense Refill dicyclomine (BENTYL) 20 MG tablet Take 20 mg by mouth every 6 hours. lamoTRIgine (LAMICTAL) 150 MG tablet Take 150 mg by mouth nightly. venlafaxine (EFFEXOR XR) 150 mg 24 hr tablet Take 150 mg by mouth daily (with breakfast ). Family History Problem Relation Age of Onset Heart disease Mother Hypertension Mother Heart disease Maternal Grandmother Heart disease Maternal Grandfather Hypertension Maternal Grandfather Stroke Maternal Grandfather Social History Tobacco Use Smoking Status Former Smoker Packs/day: 1.50 Smokeless Tobacco Former User Social History Substance and Sexual Activity Alcohol Use Not Currently PHYSICAL EXAM BP 111/68 | Pulse 67 | Temp 36.6 C (97.9 F) | Resp 14 | Ht 1.88 m (6' 2") | Wt 77. 1 kg (170 lb) | SpO2 100% | BMI 21.83 kg/m Wt. Admission: Weight: 77.1 kg (170 lb) Wt. Current: Weight: 77.1 kg (170 lb) Body mass index is 21.83 kg/m. Physical Exam Vitals signs reviewed. HENT: Head: Atraumatic. Mouth/Throat: Mouth: Mucous membranes are moist. Eyes: Pupils: Pupils are equal, round, and reactive to light. Neck: Musculoskeletal: Neck supple. Cardiovascular: Rate and Rhythm: Normal rate. Pulmonary: Effort: Pulmonary effort is normal. Abdominal: Palpations: Abdomen is soft. Skin: General: Skin is warm. Neurological: Mental Status: He is alert and oriented to person, place, and time. Psychiatric: Mood and Affect: Mood normal. Labs: No results for input(s): WBC, HGB, HCT, PLT, MCV in the last 72 hours. Invalid input(s): BANDSPCT No results for input(s): NA, K, CL, CO2, BUN, CREA, CALCIUM, MG, PHOS in the last 72 hours. ASSESSMENT & PLAN This is a 38-year-old gentleman who presents with the anal pain and bleeding status post subtotal colectomy plan is for flexible sigmoidoscopy to assess the remaining sigmoid and ru le out microcytic colitis and other causes of diarrhea and perhaps bleeding I started the pa tient on FiberCon twice a day no surgical intervention warranted at this point. Procedure op tions, risks, benefits and alternatives reviewed with patient who express(es) understanding. Any and all questions were answered to their satisfaction. Delroy Lyons MD 8:33 AM; 11/24/2019 cc: KEVIN NATH MD documented in this encounter Miscellaneous Notes Op Note - Delroy Lyons MD - 11/24/2019 8:38 AM PSTFor colonoscopy report please go t o the Media tab under Chart review and double click "GI procedure note" Delory Lyons MD 11/24/2019 -C Instructions Pr ovation - Delroy Lyons MD - 11/24/2019 8:15 AM PSTPatient Instructions After Colonosc opy Patient: Dylon Melissa Procedure Date: Sunday, November 24, 2019 Attending MD: Delroy Lyons; You had a Colonoscopy today. Your doctor made the following findings: - The rectum is normal. Biopsied. - The examined portion of the ileum was normal. Your doctor recommends: You have a contact number available for emergencies. The signs and symptoms of potential delayed complications were discussed with you. You may return to normal activities tomorrow. Written discharge instructions were provided to you. Resume your previous diet. Continue your present medications. Your physician has recommended a repeat colonoscopy. Return to your GI clinic. CALL YOUR PHYSICIAN IF YOU EXPERIENCE: < Any unusual abdominal pain. < Any shoulder pain. < Temperature above 100 degrees Fahrenheit < Rectal bleeding in excess of 2 Tablespoons DIET: If you have undergone diagnostic colonoscopy, you may resume your regular diet immediately after the procedure unless otherwise instructed by your doctor. CAUTIONS: The medications used to make the examination more comfortable for you will be acting in your body for up to 24 hours. Therefore: < DO NOT drive a car or operate machinery or power tools. < DO NOT drink alcohol or take tranquillizers or sleeping pills. < DO NOT make major personal decisions. This includes signing legal documents and/or contracts. MEDICATIONS: Most medications can be safely resumed once you can eat. The exceptions would be tranquillizers and sleeping pills. Delroy Lyons, 11/24/2019 9:08:36 AM This report has been signed electronically. documented in this encounter Plan of Treatment Not on filedocumented as of this encounter Procedures + +--------+ + + + | Procedure Name | Priori | Date/Time | Associated Diagnosis | Comments | | | ty | | | | + +--------+ + + + | CT ABDOMEN PELVIS W | Routin | 11/24/2019 | Lower abdominal | Results for this | | CONTRAST | e | 10:11 AM | pain | procedure are in the | | | | PST | | results section. | + +--------+ + + + | SURGICAL PATHOLOGY | Routin | 11/24/2019 | Diarrhea, | Results for this | | EXAM | e | 8:30 AM | unspecified type | procedure are in the | | | | PST | | results section. | + +--------+ + + + | MA COLONOSCOPY FLX | Routin | 11/24/2019 | | Results for this | | DX W/COLLJ SPEC WHEN | e | 8:15 AM | | procedure are in the | | [facility] | | PST | | results section. | + +--------+ + + + | COLONOSCOPY | | 11/24/2019 | Diarrhea, | | | | | 8:13 AM | unspecified type | | | | | PST | | | + +--------+ + + + +---+--------+ | | | | | Specia | | | l | | | Needs | | | With | | | anesth | | | esiaAl | | | lergy: | | | PCN, | | | CIPRO | +---+--------+ documented in this encounter Results CT Abdomen Pelvis w Contrast (11/24/2019 10:11 AM PST) + + | Specimen | + + | | + + + + + | Impressions | Performed At | + + + | 1. No acute findings in the abdomen or pelvis. 2. Evidence of | [facility] | | colectomy. 3. Moderate retained rectal stool. Signed by: | | | Jaquan Paul, Vinicio Sign Date/Time: 11/24/2019 1:01 PM | | + + + + + + | Narrative | Performed At | + + + | CT ABDOMEN AND PELVIS WITH CONTRAST CLINICAL INFORMATION: | [facility] | | Abdominal pain, acute, non localized. History of colectomy. | | | COMPARISON: None PROCEDURE: Axial images through the abdomen and | | | pelvis after the administration of 100 mL Omnipaque 350 intravenous | | | contrast. Multiplanar reconstructions. At least one of the | | | following CT dose optimization techniques were used: Automated | | | exposure control; Adjustment of mA and/or kV according to patient | | | size; Use of iterative reconstruction technique. FINDINGS: LUNG | | | BASES: No significant pulmonary abnormality. No pleural effusion or | | | pneumothorax. ABDOMEN Liver and Biliary: No gallbladder or | | | biliary abnormality. No significant liver abnormality. Pancreas, | | | Spleen and Adrenals: No pancreatitis or pancreatic mass. No | | | splenomegaly, splenic mass or splenic hemorrhage. No significant | | | adrenal abnormality. Kidneys: No hydronephrosis, calculus or solid | | | renal mass. ABDOMEN AND PELVIS Bowel: No small bowel dilatation | | | or adjacent inflammation. Evidence of colectomy with intact | | | anastomosis the proximal rectum. Moderate retained rectal stool. | | | No gastric abnormality is seen. Vessels: No significant abnormality | | | in the aorta or its proximal branches. No significant abnormality in | | | the portal veins, mesenteric veins or systemic veins. Lymph Nodes: | | | No adenopathy. Peritoneum and Retroperitoneum: No ascites or free | | | air. No significant retroperitoneal abnormality. PELVIS | | | Genitourinary: Distal ureters and bladder appear normal. No pelvic | | | masses. BODY WALL Soft Tissues: No bowel or inflamed fat | | | containing hernia, mass or hemorrhage. Bones: No acute fracture or | | | vertebral end plate destruction. No lytic or blastic lesion. | | + + + + + | Procedure Note | + + | Alphonso, Rad Results In - 11/24/2019 1:05 PM PST | | CT ABDOMEN AND PELVIS WITH CONTRAST | | | | CLINICAL INFORMATION: | | Abdominal pain, acute, non localized. History of colectomy. | | | | COMPARISON: | | None | | | | PROCEDURE: | | Axial images through the abdomen and pelvis after the administration of | | 100 mL Omnipaque 350 intravenous contrast. Multiplanar reconstructions. | | | | At least one of the following CT dose optimization techniques were | | used: Automated exposure control; Adjustment of mA and/or kV according | | to patient size; Use of iterative reconstruction technique. | | | | FINDINGS: | | LUNG BASES: No significant pulmonary abnormality. No pleural effusion | | or pneumothorax. | | | | ABDOMEN | | Liver and Biliary: No gallbladder or biliary abnormality. No | | significant liver abnormality. | | Pancreas, Spleen and Adrenals: No pancreatitis or pancreatic mass. No | | splenomegaly, splenic mass or splenic hemorrhage. No significant | | adrenal abnormality. | | Kidneys: No hydronephrosis, calculus or solid renal mass. | | | | ABDOMEN AND PELVIS | | Bowel: No small bowel dilatation or adjacent inflammation. Evidence of | | colectomy with intact anastomosis the proximal rectum. Moderate | | retained rectal stool. No gastric abnormality is seen. | | Vessels: No significant abnormality in the aorta or its proximal | | branches. No significant abnormality in the portal veins, mesenteric | | veins or systemic veins. | | Lymph Nodes: No adenopathy. | | Peritoneum and Retroperitoneum: No ascites or free air. No significant | | retroperitoneal abnormality. | | | | PELVIS | | Genitourinary: Distal ureters and bladder appear normal. No pelvic | | masses. | | | | BODY WALL | | Soft Tissues: No bowel or inflamed fat containing hernia, mass or | | hemorrhage. | | Bones: No acute fracture or vertebral end plate destruction. No lytic | | or blastic lesion. | | | | IMPRESSION: | | 1. No acute findings in the abdomen or pelvis. | | 2. Evidence of colectomy. | | 3. Moderate retained rectal stool. | | | | | | | | Signed by: Jaquan Paul Sean | | Sign Date/Time: 11/24/2019 1:01 PM | + + + +---------+ + + | Performing | Address | City/State/Zipcode | Phone Number | | Organization | | | | + +---------+ + + | [facility] | | | | + +---------+ + + Surgical Pathology Exam (11/24/2019 8:30 AM PST) + + | Specimen | + + | Tissue - Entire | | rectum (body | | structure) | + + + + + | Narrative | Performed At | + + + | SPECIMEN(S): A | [facility] | | RANDOM RECTUM BIOPSY SPECIMEN SOURCE:A. RANDOM RECTUM BIOPSY CLINICAL | [facility] | | HISTORY:R19.7 (diarrhea, unspecified) MICROSCOPIC | | | DESCRIPTION:Histologic sections of all submitted blocks are examined | | | by light microscopy. These findings, together with the gross | | | examination, support the pathologic diagnosis. FINAL PATHOLOGIC | | | DIAGNOSIS:Random rectum, biopsies:- Hyperplastic colonic mucosa.- | | | Negative for active colitis, granulomas or dysplasia. AMB:emb:C2NR | | | GROSS DESCRIPTION:The specimen, labeled "SC, random rectum biopsy," is | | | received in formalin and consists of two razo soft tissue fragment(s) | | | that measure 0.3 and 0.4 cm in greatest dimension. The specimen is | | | entirelysubmitted in cassette (A1).FB (under the direct supervision of | | | a pathologist) The Gross Description was prepared using a voice | | | recognition system. The report was reviewed for accuracy; however, | | | sound-alike word errors, addition and/or deletions may occur. If | | | there is anyquestion about this report, please contact Client | | | Services. PERFORMING LABORATORY:The technical component was performed | | | by [facility], [address] [place] [address] (Medical | | | Director: Margarita Suarez MD; CLIA# [id number]). [facility] | | | [facility] | [address] (Medical | | | Director: Lee Hathaway M.D.; CLIA#: [id number]). Diagnostician: | | | Margarita ODELLathologistElectronically Signed 11/25/2019 | | |The Gross Description was prepared using a voice recognition system. The report was revie wed for accuracy; however, sound-alike word errors, addition and/or deletions may occur. I f there is any | | |question about this report, please contact Client Services. | | | | | |PERFORMING LABORATORY: | | |The technical component was performed by [facility], [address] [place] [address] (Automatic Steel Tie Adjuster: Margarita Suarez MD; CLIA# [id number]). Professional interpretation was performed by | | |[place] [address] (Automatic Steel Tie Adjuster: Lee Hathaway M.D.; CLIA#: [id number]). | | | | | |Diagnostician: Margarita Suarez MD | | |Pathologist | | |Electronically Signed 11/25/2019 | | | | | | | | + + + + +---------+ + + | Performing | Address | City/State/Zipcode | Phone Number | | Organization | | | | + +---------+ + + | [facility] | | | | | [facility] | | | | + +---------+ + + COLONOSCOPY (11/24/2019 8:15 AM PST) + + | Specimen | + + | | + + + + + | Narrative | Performed At | + + + | [facility] | [facility] | | [facility] | [facility] | | [facility] | | | Patient Name: Dylon Mleissa | | | Procedure Date: 11/24/2019 8:15 AMMRN: [id number] | | | of : 1980 | | | Note Status: FinalizedAttending MD: Delroy Lyons | | | , | | | | | | Procedure Type: ColonoscopyIndications: | | | Abdominal pain, Lower abdominal painMedicines: | | | Monitored Anesthesia CareComplications: No | | | immediate | | | complications. | | | Procedure: Pre-Anesthesia Assessment: | | | - Prior to the procedure, a History and Physical was performed, and | | | patient medications and allergies were reviewed. The patient's | | | tolerance of previous anesthesia was also reviewed. The risks | | | and benefits of the procedure and the sedation options and | | | risks were discussed with the patient. All questions were | | | answered, and informed consent was obtained. Prior | | | Anticoagulants: The patient has taken no previous anticoagulant or | | | antiplatelet agents. ASA Grade Assessment: I - A normal, healthy | | | patient. After reviewing the risks and benefits, the patient was | | | deemed in satisfactory condition to undergo the procedure. | | | After I obtained informed consent, the scope was passed under | | | direct vision. Throughout the procedure, the patient's blood | | | pressure, pulse, and oxygen saturations were monitored | | | continuously. The Colonoscope was introduced through the anus | | | and advanced to the ileocolonic anastomosis. The colonoscopy | | | was performed without difficulty. The patient tolerated the | | | procedure well. The quality of the bowel preparation was adequate. | | | Ileocolic anastosmosis were photographed. | | | | | | Estimated Blood Loss: Estimated blood | | | loss: none.Findings: The rectum appeared normal. random biopsies | | | with a cold forceps for histology. Verification of patient | | | identification for the specimen was done. Estimated blood loss | | | was minimal. The ileal surgical anastomosis appeared normal. | | | side to side anastomosis. | | | | | | Impression: - The rectum is normal. Biopsied. - The | | | examined portion of the ileum was normal.Recommendation: - | | | Patient has a contact number available for emergencies. The signs and | | | symptoms of potential delayed complications were discussed with | | | the patient. Return to normal activities tomorrow. Written | | | discharge instructions were provided to the patient. - | | | Resume previous diet. - Fibercon BID - Refer to GI clinic | | | for EGD Delroy Lyons, 11/24/2019 9:08:36 AMThis | | | report has been signed electronically. Note Initiated On: 11/24/2019 | | | 8:15 AMNumber of Addenda: 0 [facility] | | | | | | | | |Delroy Lyons, | | |11/24/2019 9:08:36 AM | | |This report has been signed electronically. | | | | | |Note Initiated On: 11/24/2019 8:15 AM | | |Number of Addenda: 0 | | | | | | [facility] | | + + + + +---------+ + + | Performing | Address | City/State/[facility] | Phone Number | | Organization | | | | + +---------+ + + | [facility] | | | | + +---------+ + + documented in this encounter Visit Diagnoses + + | Diagnosis | + + | Diarrhea, unspecified type - Primary | + + | Lower abdominal pain Abdominal pain, other specified site | + + documented in this encounter Admitting Diagnoses + + | Diagnosis | + + | Diarrhea, unspecified type | + + documented in this encounter Administered Medications + +--------+ +---------+------+------+ | Medication Order | MAR | Action | Dose | Rate | Site | | | Action | Date | | | | + +--------+ +---------+------+------+ | iohexol (OMNIPAQUE 350) 350 | Given | 11/24/19 | 100 mLs | | | | mg/mL injection 100 mL 100 mL, | | 20 10:13 | | | | | Intravenous, ONCE PRN, Other, | | AM PST | | | | | Starting 11/24/19 at 1012, For | | | | | | | 1 dose, Cat Scanner | | | | | | + +--------+ +---------+------+------+ +---+---+ | | | +---+---+ + +---------+ +---+-------+---+ | sodium chloride 0.9% (NS) | New Bag | 11/24/19 | | 100 | | | infusion at 100 mL/hr, | | 20 7:51 | | mL/hr | | | Intravenous, CONTINUOUS, Starting | | AM PST | | | | | 11/24/19 at 0815, Intra-op | | | | | | + +---------+ +---+-------+---+ +---+---+ | | | +---+---+ documented in this encounter
--- OUTSIDE RECORDS SUMMARY | ~2020-04-21 | XMS | Encounter Summary ---
Demographics + + + | Address | [address] | | | [place] [address] | + + + | Home Phone | | + + + | Preferred Language | Unknown | + + + | Marital Status | Single | + + + | Muslim Affiliation | Unknown | + + + | Race | Unknown | + + + | Ethnic Group | Unknown | + + + Author + + + | Author | [facility] | | | and [place] | + + + | Organization | [facility] | | | and [place] | + + + | Address | Unknown | + + + | Phone | Unavailable | + + + Support + + +---------+ + | Name | Relationship | Address | Phone | + + +---------+ + | [place] | ECON | Unknown | | | Corrections | | | | + + +---------+ + Care Team Providers + +------+ + | Care Performance Makeup Artist Name | Role | Phone | + +------+ + | Kevin Martin MD | PCP | | + +------+ + Encounter Details +--------+ + + + + | Date | Type | Department | Care Team | Description | +--------+ + + + + | 05/28/ | Orders Only | [facility] | Conversion | | | 2016 | | CONVERSION DEP [address] | Transaction, | | | | | [address] | Provider Unknown | | | | | [place] | [phone] | | | | | [address] | | | | | | [phone] | | | +--------+ + + + + Social History + +-------+ +--------+------+ | Tobacco Use | Types | Packs/Day | Years | Date | | | | | Used | | + +-------+ +--------+------+ | Former Smoker | | 1.5 | | | + +-------+ +--------+------+ + + + | Sex Assigned at | Date Recorded | | | | + + + | Not on file | | + + + documented as of this encounter Plan of Treatment Not on filedocumented as of this encounter Visit Diagnoses Not on filedocumented in this encounter"
--- OUTSIDE RECORDS SUMMARY | ~2020-04-21 | XMS | Encounter Summary ---
Demographics + + + | Address | [address] | | | [place] [address] | + + + | Home Phone | | + + + | Preferred Language | Unknown | + + + | Marital Status | Single | + + + | Sabianist Affiliation | Unknown | + + + | Race | Unknown | + + + | Ethnic Group | Unknown | + + + Author + + + | Author | [facility] | | | and [place] | + + + | Organization | [facility] | | | and [place] | + + + | Address | Unknown | + + + | Phone | Unavailable | + + + Support + + +---------+ + | Name | Relationship | Address | Phone | + + +---------+ + | [place] | ECON | Unknown | | | Corrections | | | | + + +---------+ + Care Team Providers + +------+ + | Care Business Continuity Specialist Name | Role | Phone | + [...] | | | | [place] | [phone] | | | | | [address] | | | | | | [phone] | | | +--------+ + + + [...]
--- OUTSIDE RECORDS SUMMARY | ~2020-04-21 | XMS | Encounter Summary ---
Demographics + + + | Address | [address] | | | [place] [address] | + + + | Home Phone | | + + + | Preferred Language | Unknown | + + + | Marital Status | Single | + + + | Faith Affiliation | Unknown | + + + | Race | Unknown | + + + | Ethnic Group | Unknown | + + + Author + + + | Author | [facility] | | | and [place] | + + + | Organization | [facility] | | | and [place] | + + + | Address | Unknown | + + + | Phone | Unavailable | + + + Support + + +---------+ + | Name | Relationship | Address | Phone | + + +---------+ + | [place] | ECON | Unknown | | | Corrections | | | | + + +---------+ + Care Team Providers + +------+ + | Care Vice President Medical Affairs Name | Role | Phone | + +------+ + | Kevin Nath MD | PCP | | + +------+ + Encounter Details +--------+---------+ + + + | Date | Type | Department | Care Team | Description | +--------+---------+ + + + | 06/17/ | Office | [facility] | Delroy Lyons, | Diarrhea, | | 2019 | Visit | GENERAL SURGERY [address] | [address] | unspecified type | | | | [address] | [address] | (Primary Dx) | | | | [place], [place] | [place] [address] | | | | | [address] | [phone] | | | | | [phone] | | | +--------+---------+ + + + Social History + +-------+ [...] + + documented as of this encounter Progress Notes Delroy Lyons MD - 06/17/2019 2:00 PM PDTFormatting of this note might be different f rom the original. Service: Colorectal Surgery History & Physical ID: Dylon Melissa; DATE OF VISIT: 06/17/2019 History Obtained From: History obtained from the patient. CHIEF COMPLAINT: New patient presents for consultation regarding colectomy. Patient has J-P ouch and is having issues with diarrhea and rectal bleeding. HISTORY OF PRESENT ILLNESS The patient is a 38 y.o. male [...] more runny stool and fo rmed stool. Spa Host needed: no Last colonoscopy: yes Rectal Bleeding:yes [...] procedure: no Active comorbid conditions include: - GERD REVIEW OF SYSTEMS Review of Systems All other systems reviewed and are negative. Past Medical History: Diagnosis Date GERD (gastroesophageal reflux disease) Past Surgical History: Procedure Laterality Date APPENDECTOMY OTHER SURGICAL HISTORY right side of chest wall TONSILLECTOMY AND ADENOIDECTOMY Allergies Allergen Reactions Penicillins Anaphylaxis Venlafaxine Other (See Comments) Ciprofloxacin Rash Rash (Not in a hospital admission) Family History Problem Relation Age of Onset Heart disease Mother Hypertension Mother Heart disease Maternal Grandmother Heart disease Maternal Grandfather Hypertension Maternal Grandfather Stroke Maternal Grandfather Social History Tobacco Use Smoking Status Former Smoker Packs/day: 1.50 Smokeless Tobacco Former User Social History Substance and Sexual Activity Alcohol Use Not Currently PHYSICAL EXAM There were no vitals taken for this visit. Wt. Admission: Wt. Current: There is no height or weight on file to calculate BMI. Physical Exam Constitutional: He is oriented to person, place, and time. He appears well-developed and we ll-nourished. No distress. HENT: Head: Atraumatic. Eyes: Pupils are equal, round, and reactive to light. Neck: Neck supple. Cardiovascular: Normal rate. Pulmonary/Chest: Effort normal. No respiratory distress. Abdominal: Soft. He exhibits no distension. There is no tenderness. Genitourinary: Neurological: He is alert and oriented to person, place, and time. Skin: Skin is warm. He is not diaphoretic. Psychiatric: He has a normal mood and affect. Nursing note and vitals reviewed. Labs: No results for input(s): WBC, HGB, HCT, PLT, MCV in the last 72 hours. Invalid input(s): BANDSPCT No results for input(s): NA, K, CL, CO2, BUN, CREA, CALCIUM, MG, PHOS in the last 72 hours. ASSESSMENT & PLAN this is a 38-year-old gentleman who presents with the anal pain and bleeding status post s ubtotal colectomy plan is for flexible sigmoidoscopy to assess the remaining sigmoid and rul e out microcytic colitis and other causes of diarrhea and perhaps bleeding I started the pat ient on FiberCon twice a day no surgical intervention warranted at this point. . Delroy Lyons MD 14:03; 06/17/2019 cc: KEVIN NATH MD documented in this encounter Plan of Treatment Not on filedocumented as of this encounter Visit Diagnoses + + | Diagnosis | + + | Diarrhea, unspecified type - Primary | + + documented in this encounter"
--- OUTSIDE RECORDS SUMMARY | ~2020-04-21 | XMS | Encounter Summary ---
Demographics + + + | Address | [address] | | | [place] [address] | + + + | Home Phone | | + + + | Preferred Language | Unknown | + + + | Marital Status | Single | + + + | Synagogue Affiliation | Unknown | + + + | Race | Unknown | + + + | Ethnic Group | Unknown | + + + Author + + + | Author | [facility] | | | and [place] | + + + | Organization | [facility] | | | and [place] | + + + | Address | Unknown | + + + | Phone | Unavailable | + + + Support + + +---------+ + | Name | Relationship | Address | Phone | + + +---------+ + | [place] | ECON | Unknown | | | Corrections | | | | + + +---------+ + Care Team Providers + +------+ + | Care Corn Detasseler Machine Operator Name | Role | Phone | + +------+ + | Kevin Martin MD | PCP | | + +------+ + Reason for Visit + +--------+ + | Reason | Onset | Comments | | | Date | | + +--------+ + | Procedure | 10/11/ | Reschedule 10/20/19 Procedure | | | 2020 | | + +--------+ + Encounter Details +--------+ + + + + | Date | Type | Department | Care Team | Description | +--------+ + + + + | 10/11/ | Telephone | [facility] | Delroy Lyons, | Procedure | | 2020 | | GENERAL SURGERY [address] | MD [address] | (Reschedule 10/20/19 | | | | [address] | [address] | Procedure) | | | | [place], [place] | [place] [address] | | | | | [address] | [phone] | | | | | [phone] | | | +--------+ + + + [...] this encounter Miscellaneous Notes Telephone Encounter - SloanSwetha gramajorukhsana Silver - 10/11/2019 3:14 PM PSTLeft message for Trice Verdin Corrections to contact our office and reschedule scope with Dr Lyons. Per mess age below elephone Encounter - Pamela Brenner - 10/11/2019 3:01 PM PSTKim- [facility], is [facility] regard ing Procedure (Reschedule 10/20/19 Procedure) and would like a call back. Additional Call Details: Calling to reschedule patient's 10/20/19 colonoscopy. Please call back at [phone]. If this is a symptom based call, was patient offered triage? Not Applicable If this is a symptom based call and you were unable to immediately transfer the call to a p roviori plastic cnc machine operator was caller made aware that if at any time he feels it is an emergency they erin uld call 911 or go to the nearest emergency room? not applicable documented in this encounter Plan of Treatment Not on filedocumented as of this encounter Visit Diagnoses Not on filedocumented in this encounter"
--- OUTSIDE RECORDS SUMMARY | ~2020-04-21 | XMS | Encounter Summary ---
Demographics + + + | Address | [address] | | | [place] [address] | + + + | Home Phone | | + + + | Preferred Language | Unknown | + + + | Marital Status | Single | + + + | Religion Affiliation | Unknown | + + + | Race | Unknown | + + + | Ethnic Group | Unknown | + + + Author + + + | Author | [facility] | | | and [place] | + + + | Organization | [facility] | | | and [place] | + + + | Address | Unknown | + + + | Phone | Unavailable | + + + Support + + +---------+ + | Name | Relationship | Address | Phone | + + +---------+ + | [place] | ECON | Unknown | | | Corrections | | | | + + +---------+ + Care Team Providers + +------+ + | Care Flatwork Supervisor Name | Role | Phone | + +------+ + | Kevin Martin MD | PCP | | + +------+ + Reason for Visit +--------+--------+ + | Reason | Onset | Comments | | | Date | | +--------+--------+ + | Other | 11/22/ | Prep | | | 2020 | | +--------+--------+ + Encounter Details +--------+ + + + + | Date | Type | Department | Care Team | Description | +--------+ + + + + | 11/22/ | Telephone | [facility] | Juanpablo Ferrara | Other (Prep) | | 2020 | | GENERAL SURGERY [address] | B, RN | | | | | [address] | | | | | | [place] | | | | | | [address] | | | | | | [phone] | | | +--------+ + + + [...] this encounter Miscellaneous Notes Telephone Encounter - Juanpablo Ferrara RN - 11/22/2019 1:55 PM PSTReviewed Heide pandya with patient. Patient verbalized understanding. No further questions at this time. documented in this encounter Plan of Treatment Not on filedocumented as of this encounter Visit Diagnoses Not on filedocumented in this encounter"
--- OUTSIDE RECORDS SUMMARY | ~2020-04-21 | XMS | Clinical Summary ---
Demographics + + + | Address | [address] | | | [place] [address] | + + + | Home Phone [...] + | Organization | [facility] | | | and [place] | + + + | Address | Unknown | + + + | Phone | Unavailable | + + + Support + + +---------+ + | Name | Relationship | Address | Phone | + + +---------+ + | [place] | ECON | Unknown | | | Corrections | | | | + + +---------+ + Care Team Providers + +------+ + | Care Library Circulation Assistant Name | Role | Phone | + [...] + + + + + + | Venlafaxine | Other (See Comments) | High | 06/17/20 | | | | | | 19 | | + + + + + [...] + + +---------+------+------+-------+ | lamoTRIgine | Take 150 mg by mouth | | 0 | | | Activ | | (LAMICTAL) 150 MG | nightly. | | | | | e | | tablet | | | | | | | + + + +---------+------+------+-------+ | venlafaxine | Take 150 mg by mouth | | 0 | | | Activ | | (EFFEXOR XR) 150 mg | daily (with | | | | | e | | 24 hr tablet | breakfast). | | | | | | + + + +---------+------+------+-------+ Active Problems + + + | Problem | Noted Date | + + + | Diarrhea, unspecified type | 06/21/2019 | + + + + + | Overview: Added automatically from request for surgery | | [id number] | + + + + + | [...] the age of 13, he was in [place] at | | time, was taken to [...] to rule out | | CAD.ECG, 03/12/2016 ( [facility]): NSR, 74bpm.ECG, 04/19/2016 | | ([facility]): sinus [...] pain | 05/27/2016 | + + + Immunizations + + + + | Name [...] | | + + + + + Results Not on filefrom Last 3 Months Insurance + +--------+ +--------+-------+---------+--------+ | Payer | Benefi | Subscriber | Effect | Phone | Address | Type | | | t Plan | ID | teresa | | | | | | / | | Dates | | | | | | Group | | | | | | + +--------+ +--------+-------+---------+--------+ | DEPARTMENT OF | CORRCT | [id number] | | | | Indemn | | [...] | + +--------+ +--------+ + + | [employer] | Corpor | Non | 09/29/ | | [address] | | [place] | ate | Relative | 1902 | [phone] | [place] [address] | | | | | | 1 (Home) | | | | | | | [phone] | | | | | | | 0 (Work) | | + +--------+ +--------+ + + | Dylon Melissa | Person | Self | [birth year] | | [address] | | | al/Fam | | 1981 | [phone] | [place] [address] | | | sameer | | | 9 (Home) | | + +--------+ +--------+ + + Advance Directives + + + + + | Type | Date Recorded | Patient | Explanation | | | | Message And Delivery Service Pricer | | + + + + + | Power of | | | | | Commission Clerk | | | | + + + + + | Advance | 09/17/2019 | | | | Directive | 11:39 AM | | | + + + + +
--- OUTSIDE RECORDS SUMMARY | ~2020-04-21 | XMS | Encounter Summary ---
Demographics + + + | Address | [address] | | | [place] [address] | + + + | Home Phone | | + + + | Preferred Language | Unknown | + + + | Marital Status | Single | + + + | Denominational Affiliation | Unknown | + + + | Race | Unknown | + + + | Ethnic Group | Unknown | + + + Author + + + | Author | [facility] | | | and [place] | + + + | Organization | [facility] | | | and [place] | [...] Team Providers + +------+ + | Care Boiler Room Operator Name | Role | Phone | + +------+ + | Kevin Martin MD | PCP | | + +------+ + Reason for Visit + +--------+ + | Reason | Onset | Comments | | | Date | | + +--------+ + | Procedure | 10/12/ | rescheduled 10/20/19 | | | 2020 | | + +--------+ + Encounter Details +--------+ + + + + | Date | Type | Department | Care Team | Description | +--------+ + + + + | 10/12/ | Telephone | [facility] | Delroy Lyons, | Procedure | | 2020 | | GENERAL SURGERY [address] | MD [address] | (rescheduled | | | | [address] | [address] | 10/20/19) | | | | [place], [place] | [place] [address] | | | | | [address] | [phone] | | | | | [phone] | | | +--------+ + + + [...] Miscellaneous Notes Telephone Encounter - Trudy Sloan 10/12/2019 9:26 AM Milton from [facility] contacted our office and requested to reschedule this patients scope with Dr Omid Burnette 11/24/19 and Trice Carnes requested patient be first of the day to schedule transportation. No further questions or concerns. documented in this encounter Plan of Treatment Not on filedocumented as of this encounter Visit Diagnoses Not on filedocumented in this encounter"
--- OUTSIDE RECORDS SUMMARY | ~2020-04-21 | XMS | Encounter Summary ---
Demographics + + + | Address | [address] | | | [place] [address] | + + + | Home Phone | | + + + | Preferred Language | Unknown | + + + | Marital Status | Single | + + + | Yazidi Affiliation | Unknown | + + + | Race | Unknown | + + + | Ethnic Group | Unknown | + + + Author + + + | Author | [facility] | | | and [place] | + + + | Organization | [facility] | | | and [place] | + + + | Address | Unknown | + + + | Phone | Unavailable | + + + Support + + +---------+ + | Name | Relationship | Address | Phone | + + +---------+ + | [place] | ECON | Unknown | | | Corrections | | | | + + +---------+ + Care Team Providers + +------+ + | Care Buildings And Grounds Director Name | Role | Phone | + +------+ + | Kevin Martin MD | PCP | | + +------+ + Reason for Visit +--------+--------+ + | Reason | Onset | Comments | | | Date | | +--------+--------+ + | Other | 07/27/ | surgery | | | 2019 | | +--------+--------+ + Encounter Details +--------+ + + + + | Date | Type | Department | Care Team | Description | +--------+ + + + + | 07/27/ | Telephone | [facility] | Delroy Lyons, | Other (surgery) | | 2019 | | GENERAL SURGERY [address] | MD [address] | | | | | [address] | [address] | | | | | [place], [place] | [place] [address] | | | | | [address] | [phone] | | | | | [phone] | | | +--------+ + + + [...] Notes Telephone Encounter - Trudy Sloan - 07/27/2019 3:51 PM PDTSpoke with Amara at [facility] (scheduling for [facility]) to cancel scope with Dr Noé oleary. Patient does not want to reschedule. No further questions or concerns. elephone Encounter - [place], Checo Raymond - [facility]/27/2019 3[facility] Other ([facility]) and would like a call back. Additional Call Details: Called to cancel 07/28/19 appointment due to patient refusal. No callback needed. If this is a symptom based call, was patient offered triage? Not Applicable If this is a symptom based call and you were unable to immediately transfer the call to a bruce yap senior physician was caller made aware that if at any time he feels it is an emergency they erin uld call 911 or go to the nearest emergency room? not applicable documented in this encounter Plan of Treatment Not on filedocumented as of this encounter Visit Diagnoses Not on filedocumented in this encounter"
--- OUTSIDE RECORDS SUMMARY | ~2020-04-21 | XMS | Encounter Summary ---
Demographics + + + | Address | [address] | | | [place] [address] | + + + | Home Phone | | + + + | Preferred Language | Unknown | + + + | Marital Status | Single | + + + | Adventism Affiliation | Unknown | + + + | Race | Unknown | + + + | Ethnic Group | Unknown | + + + Author + + + | Author | [facility] | | | and [place] | + + + | Organization | [facility] | | | and [place] | + + + | Address | Unknown | + + + | Phone | Unavailable | + + + Support + + +---------+ + | Name | Relationship | Address | Phone | + + +---------+ + | [place] | ECON | Unknown | | | Corrections | | | | + + +---------+ + Care Team Providers + +------+ + | Care Medical Assistant Secretary Name | Role | Phone | + [...] + + | 10/04/ | Telephone | [facility] | Delroy Lyons, | Procedure | | 2020 | | GENERAL SURGERY [address] | MD [address] | (Instructions/ Prep | | | | [address] | [address] | for 10/20/19) | | | | [place], [place] | [place] [address] | | | | | [address] | [phone] | | | | | [phone] | | | +--------+ + + + [...] Miscellaneous Notes Telephone Encounter - Alexus Chaves, Plastics Fabricator Or Welder - 10/11/2019 11:08 AM PSTPrep in structions sent to [facility] facilities [facility] fax. Fax confirmation received. Electr onically signed by Alexus Chaves, Plastics Fabricator Or Welder at 10/11/2019 11:08 AM PSTTelePamela [place] 10/04/2019 9:25 AM PSTCassidgaye- [facility], is [facility] Procedure (Instructions/ Prep for 10/20/19) and would like a call back. Additional Call Details: Caller would like the prep instructions for patient's 10/20/19 pro cedure. Please fax to [phone]. If this is a symptom based call, was patient offered triage? Not Applicable If this is a symptom based call and you were unable to immediately transfer the call to a p fracisco sand cutting machine operator was caller made aware that if at any time he feels it is an emergency they erin uld call 911 or go to the nearest emergency room? not applicable documented in this encounter Plan of Treatment Not on filedocumented as of this encounter Visit Diagnoses Not on filedocumented in this encounter"
--- OUTSIDE RECORDS SUMMARY | ~2020-04-21 | XMS | Encounter Summary ---
Demographics + + + | Address | [address] | | | [place] [address] | + + + | Home Phone | | + + + | Preferred Language | Unknown | + + + | Marital Status | Single | + + + | Anabaptism Affiliation | Unknown | + + + | Race | Unknown | + + + | Ethnic Group | Unknown | + + + Author + + + | Author | and [facility] | | | and [place] | + + + | Organization | and [facility] | | | and [place] | + + + | Address | Unknown | + + + | Phone | Unavailable | + + + Support + + +---------+ + | Name | Relationship | Address | Phone | + + +---------+ + | [place] | ECON | Unknown | | | Corrections | | | | + + +---------+ + Care Team Providers + +------+ + | Care Grading Machine Operator Name | Role | Phone [...] + + | 10/12/ | Telephone | [facility] | Delroy Lyons, | Procedure | | 2020 | | GENERAL SURGERY [address] | MD [address] | (rescheduled | | | | [address] | [address] | 10/20/19) | | | | [place], [place] | [place] [address] | | | | | [address] | [phone] | | | | | [phone] | | | +--------+ + + + [...] Trudy Sloan 10/12/2019 9:26 AM Milton from [facility] contacted our office and requested to reschedule this patients scope with Dr Omid Burnette 11/24/19 and Trice Carnse requested patient be first of the day to schedule transportation. No further questions or concerns. documented in this encounter Plan of Treatment Not on filedocumented as of this encounter Visit Diagnoses Not on filedocumented in this encounter"
--- OUTSIDE RECORDS SUMMARY | ~2020-04-21 | XMS | Encounter Summary ---
Demographics + + + | Address | [address] | | | [place] [address] | + + + | Home Phone | | + + + | Preferred Language | Unknown | + + + | Marital Status | Single | + + + | Mormon Affiliation | Unknown | + + + | Race | Unknown | + + + | Ethnic Group | Unknown | + + + Author + + + | Author | [facility] | | | and [place] | + + + | Organization | [facility] | | | and [place] | + + + | Address | Unknown | + + + | Phone | Unavailable | + + + Support + + +---------+ + | Name | Relationship | Address | Phone | + + +---------+ + | [place] | ECON | Unknown | | | Corrections | | | | + + +---------+ + Care Team Providers + +------+ + | Care Cotton Picker Name | Role | Phone | + [...] + + | 07/27/ | Telephone | [facility] | Delroy Lyons, | Other (surgery) | | 2019 | | GENERAL SURGERY 780 | MD [address] | | | | | [address] | [address] | | | | | [place], [place] | [place] [address] | | | | | [address] | [phone] | | | | | [phone] | | | +--------+ + + + [...] 07/27/2019 3:51 PM PDTSpoke with Am[facility] at [facility] ([facility] for [facility]) to cancel scope with Dr Noé oleary. Patient does not want to reschedule. No further questions or concerns. elephone Encounter - [place], Checo Raymond - 07/27/2019 3:[facility] Other ([facility]) and would like a call back. Additional Call Details: Called to cancel 07/28/19 appointment due to patient refusal. No callback needed. If this is a symptom based call, was patient offered triage? Not Applicable If this is a symptom based call and you were unable to immediately transfer the call to a bruce yap sorting machine operator was caller made aware that if at any time he feels it is an emergency they erin uld call 911 or go to the nearest emergency room? not applicable documented in this encounter Plan of Treatment Not on filedocumented as of this encounter Visit Diagnoses Not on filedocumented in this encounter"
--- OUTSIDE RECORDS SUMMARY | ~2020-04-21 | XMS | Encounter Summary ---
Demographics + + + | Address | [address] | | | [place] [address] | + + + | Home Phone [...] | Organization | [facility] | | | and [place] | + + + | Address | Unknown | + + + | Phone | Unavailable | + + + Support + + +---------+ + | Name | Relationship | Address | Phone | + + +---------+ + | [place] | ECON | Unknown | | | Corrections | | | | + + +---------+ + Care Team Providers + +------+ + | Care Cad Application Support Specialist Name | Role | Phone | + +------+ + | Kevin Martin MD | PCP | | + +------+ + Reason for Visit +--------+--------+ + | Reason | Onset | Comments | | | Date | | +--------+--------+ + | Other | 07/27/ | prep | | | 2019 | | +--------+--------+ + Encounter Details +--------+ + + + + | Date | Type | Department | Care Team | Description | +--------+ + + + + | 07/27/ | Telephone | [facility] | Juanpablo Ferrara | Other (prep) | | 2018 | | GENERAL SURGERY 780 | B, RN | | | | | [address] | | | | | | [place] | | | | | | [address] | | | | | | [phone] | | | +--------+ + + + [...] Telephone Encounter - Juanpablo Ferrara RN - 07/27/2019 12:09 PM PDTReviewed Heide barrera with care team. No further questions at this time. documented in this encounter Plan of Treatment Not on filedocumented as of this encounter Visit Diagnoses Not on filedocumented in this encounter"
--- OUTSIDE RECORDS SUMMARY | ~2020-04-21 | XMS | Encounter Summary ---
Demographics + + + | Address | [address] | | | [place] [address] | + + + | Home Phone | | + + + | Preferred Language | Unknown | + + + | Marital Status | Single | + + + | Gnosticism Affiliation | Unknown | + + + | Race | Unknown | + + + | Ethnic Group | Unknown | + + + Author + + + | Author | [facility] | | | and [place] | + + + | Organization | [facility] | | | and [place] | + + + | Address | Unknown | + + + | Phone | Unavailable | + + + Support + + +---------+ + | Name | Relationship | Address | Phone | + + +---------+ + | [place] | ECON | Unknown | | | Corrections | | | | + + +---------+ + Care Team Providers + +------+ + | Care Stem Threshing Machine Operator Name | Role | Phone [...] + + | 10/04/ | Telephone | [facility] | Delroy Lyons, | Procedure | | 2020 | | GENERAL SURGERY [address] | MD [address] | (Instructions/ Prep | | | | [address] | [address] | for 10/20/19) | | | | [place], [place] | [place] [address] | | | | | [address] | [phone] | | | | | [phone] | | | +--------+ + + + [...] Miscellaneous Notes Telephone Encounter - Alexus Chaves, Community Service Manager - 10/11/2019 11:08 AM PSTPrep in structions sent to [facility] facilities request via fax. Fax confirmation received. Electr onically signed by Alexus Chaves, Community Service Manager at 10/11/2019 11:08 AM PSTTelePamela Martinez 10/04/2019 9:25 AM PSTCassidgaye- [facility] Procedure (Instructions/ Prep for 10/20/19) and would like a call back. Additional Call Details: Caller would like the prep instructions for patient's 10/20/19 pro cedure. Please fax to [phone]. If this is a symptom based call, was patient offered triage? Not Applicable If this is a symptom based call and you were unable to immediately transfer the call to a p fracisco broomcorn thresher was caller made aware that if at any time he feels it is an emergency they erin uld call 911 or go to the nearest emergency room? not applicable documented in this encounter Plan of Treatment Not on filedocumented as of this encounter Visit Diagnoses Not on filedocumented in this encounter"
--- OUTSIDE RECORDS SUMMARY | ~2020-04-21 | XMS | Encounter Summary ---
Demographics + + + | Address | [address] | | | [place] [address] | + + + | Home Phone | | + + + | Preferred Language | Unknown | + + + | Marital Status | Single | + + + | Adventist Affiliation | Unknown | + + + | Race | Unknown | + + + | Ethnic Group | Unknown | + + + Author + + + | Author | [facility] | | | and [place] | + + + | Organization | [facility] | | | and [place] | + + + | Address | Unknown | + + + | Phone | Unavailable | + + + Support + + +---------+ + | Name | Relationship | Address | Phone | + + +---------+ + | [place] | ECON | Unknown | | | Corrections | | | | + + +---------+ + Care Team Providers + +------+ + | Care Benchroom Shop Optician Name | Role | Phone | + +------+ + | Kevin Martin MD | PCP | | + +------+ + Encounter Details +--------+ + + + + | Date | Type | Department | Care Team | Description | +--------+ + + + + | 06/22/ | Orders Only | [facility] | Juanpablo Ferrara | | | 2018 | | GENERAL SURGERY [address] | [address] | | | | | [address] | | | | | | [place] | | | | | | [address] | | | | | | [phone] | | | +--------+ + + + [...]
--- OUTSIDE RECORDS SUMMARY | ~2020-04-21 | XMS | Encounter Summary ---
Demographics + + + | Address | [address] | | | [place] [address] | + + + | Home Phone | | + + + | Preferred Language | Unknown | + + + | Marital Status | Single | + + + | Yarsani Affiliation | Unknown | + + + | Race | Unknown | + + + | Ethnic Group | Unknown | + + + Author + + + | Author | [facility] | | | and [place] | + + + | Organization | [facility] | | | and [place] [...] Team Providers + +------+ + | Care Core Winder Machine Operator Name | Role | Phone [...] + + | 06/18/ | Telephone | [facility] | Delroy Lyons, | Procedure | | 2018 | | GENERAL SURGERY [address] | MD [address] | | | | | [address] | [address] | | | | | [place], [place] | [place] [address] | | | | | [address] | [phone] | | | | | [phone] | | | +--------+ + + + [...] 9:23 AM PDTRochelleft message bandar Maloney at [place] to contact our office to schedule patients surgery. documented in this encounter Plan of Treatment Not on filedocumented as of this encounter Visit Diagnoses Not on filedocumented in this encounter"
--- OUTSIDE RECORDS SUMMARY | ~2020-04-21 | XMS | Clinical Summary ---
Demographics + + + | Address | [address] | | | [place] [address] | + + + | Home Phone | | + + + | Preferred Language | Unknown | + + + | Marital Status | Single | + + + | Denominational Affiliation | Unknown | + + + | Race | Unknown | + + + | Ethnic Group | Unknown | + + + Author + + + | Author | [facility] | | | and [place] | + + + | Organization | [facility] | | | and [place] | + + + | Address | Unknown | + + + | Phone | Unavailable | + + + Support + + +---------+ + | Name | Relationship | Address | Phone | + + +---------+ + | [place] | ECON | Unknown | | | Corrections | | | | + + +---------+ + Care Team Providers + +------+ + | Care Corporate Giving Manager Name | Role | Phone | [...] automatically from request for surgery | | [phone] | + + + + + | [...] the age of 13, he was in [place] at | | time, was taken to [...] +--------+-------+---------+--------+ | DEPARTMENT OF | CORRCT | [id number] | | | | Indemn | | [...] | 1902 | [phone] | [place] [address] | | | | | | 1 (Home) | | | | | | | [phone] | | | | | | | 0 (Work) | | + +--------+ +--------+ + + | Dylon Melissa | Person | Self | [birth year] | [address] | | | al/Fam | | 1981 | [phone] | [place] [address] | | | sameer | | | 9 (Home) | | + +--------+ +--------+ + + Advance Directives + + + + + | Type | Date Recorded | Patient | Explanation | | | | Optimization Analyst | | + + + + + | Power of | | | | | Card Mounter | | | | + + + + + | Advance | 09/17/2019 | | | | Directive | 11:39 AM | | | + + + + +
--- OUTSIDE RECORDS SUMMARY | ~2020-04-21 | XMS | Encounter Summary ---
Demographics + + + | Address | [address] | | | [place] [address] | + + + | Home Phone | | + + + | Preferred Language | Unknown | + + + | Marital Status | Single | + + + | Tenriism Affiliation | Unknown | + + + | Race | Unknown | + + + | Ethnic Group | Unknown | + + + Author + + + | Author | [facility] | | | and [place] | + + + | Organization | [facility] | | | and [place] [...] Team Providers + +------+ + | Care Magazine Supervisor Name | Role | Phone | [...] + + | 10/11/ | Telephone | [facility] | Delroy Lyons, | Procedure | | 2020 | | GENERAL SURGERY [address] | MD [address] | (Reschedule 10/20/19 | | | | [address] | [address] | Procedure) | | | | [place], [place] | [place] [address] | | | | | [address] | [phone] | | | | | [phone] | | | +--------+ + + + [...] Pamela Brenner - 10/11/2019 3:01 PM PSTKim- [facility], is calling regard ing Procedure (Reschedule 10/20/19 Procedure) and would like a call back. Additional Call Details: Calling to reschedule patient's 10/20/19 colonoscopy. Please call back at [phone]. If this is a symptom based call, was patient offered triage? Not Applicable If this is a symptom based call and you were unable to immediately transfer the call to a p roviori roads and parking lots sweeper operator was caller made aware that if at any time he feels it is an emergency they erin uld call 911 or go to the nearest emergency room? not applicable documented in this encounter Plan of Treatment Not on filedocumented as of this encounter Visit Diagnoses Not on filedocumented in this encounter"
--- OUTSIDE RECORDS SUMMARY | ~2020-04-21 | XMS | Encounter Summary ---
Demographics + + + | Address | [address] | | | [place] [address] | + + + | Home Phone [...] + + | Organization | [facility] | | | and [...] Team Providers + +------+ + | Care Window Sash Installer Name | Role | Phone | + +------+ + | Kevin Martin MD | PCP | | + +------+ + Encounter Details +--------+ + + + + | Date | Type | Department | Care Team | Description | +--------+ + + + + | 11/24/ | Anesthesia | [facility] | Amrita Ryder, | | | 2020 | Event | [facility] | [address] | | | | | [address]TRA [address] | [place] [address] | | | | | BLVD [place], [place] | [phone] | | | | | [address] | | | | | | [phone] | | | +--------+ + + + [...] EVALUATION Dylon Melissa 39 y.o. male 1980 [id number] Procedure(s) COLONOSCOPY (N/A Rectum) Cooperates? Yes Mental [...] by Amrita Ryder MD 11/24/2019 8:33 AM [facility] nesthesia Preprocedure Evaluation - Amrita Ryder MD - 11/23/2019 6:36 PM PST ANESTHESIA PREANESTHESIA EVALUATION Dylon Melissa 39 y.o. male 1980 [id number] Procedure(s): COLONOSCOPY (N/A Rectum) Medical,anesthesia, drug, allergy [...] NOTE Dylonyajaira Youngtt 39 y.o. male 1980 [id number] COLONOSCOPY (N/A Rectum) HANDOFF NOTE Handoff Protocol [...] team. Amrita Ryder MD 11/24/2019 8:31 AM [facility] documented in this encounter Plan of Treatment [...]
--- OUTSIDE RECORDS SUMMARY | ~2020-04-21 | XMS | Encounter Summary ---
Demographics + + + | Address | [address] | | | [place] [address] | + + + | Home Phone | | + + + | Preferred Language | Unknown | + + + | Marital Status | Single | + + + | Taoist Affiliation | Unknown | + + + | Race | Unknown | + + + | Ethnic Group | Unknown | + + + Author + + + | Author | [facility] | | | and [place] | + + + | Organization | [facility] | | | and [place] [...] Providers + +------+ + | Care Manager Business Operations Name | Role | Phone | + [...] + + | 06/18/ | Telephone | [facility] | Delroy Lyons, | Procedure | | 2018 | | GENERAL SURGERY [address] | MD [address] | | | | | [address] | [address] | | | | | [place], [place] | [place] [address] | | | | | [address] | [phone] | | | | | [phone] | | | +--------+ + + + [...] 9:23 AM PDTRochelleft message bandar Maloney at [place] to contact our office to schedule patients surgery. documented in this encounter Plan of Treatment Not on filedocumented as of this encounter Visit Diagnoses Not on filedocumented in this encounter"
--- OUTSIDE RECORDS SUMMARY | ~2020-04-21 | XMS | Encounter Summary ---
Demographics + + + | Address | [address] | | | [place] [address] | + + + | Home Phone [...] + + + | Author | [facility] | | | and [place] | + + + | Organization | [facility] | | | and [...] + +------+ + | Care Professor Of Social Work Name | Role | Phone | + [...] Radiology | Diagnoses | Ailbrendani, | [facility] | | Review | | | Lower | Delroy Miller MD | REGIONAL | | | | | abdominal | [address] | MEDICAL | | | | | pain | [address] | [address] | | | | | Procedures | [address] | [address] | | | | | CT Abdomen | [place], [place] | [place] | | | | | Pelvis w | [address] | [address] | | | | | Contrast | Phone: | Phone: | | | | | | [phone] | [phone] | | | | | | Fax: | Fax: | | | | | | [phone] | [phone] | + +--------+ + + + + Encounter Details +--------+ + + + + | Date | Type | Department | Care Team | Description | +--------+ + + + + | 11/24/ | Orders Only | [facility] | Delroy Lyons, | Lower abdominal pain | | 2020 | | GENERAL SURGERY [address] | [address] | (Primary Dx) | | | | [address] | [address] | | | | | [place], [place] | [place] [address] | | | | | [address] | [phone] | | | | | [phone] | | | +--------+ + + + [...]
--- OUTSIDE RECORDS SUMMARY | ~2020-04-21 | XMS | Encounter Summary ---
Demographics + + + | Address | [address] | | | [place] [address] | + + + | Home Phone | | + + + | Preferred Language | Unknown | + + + | Marital Status | Single | + + + | Mosque Affiliation | Unknown | + + + | Race | Unknown | + + + | Ethnic Group | Unknown | + + + Author + + + | Author | [facility] | | | and [place] | + + + | Organization | [facility] | | | and [place] | + + + | Address | Unknown | + + + | Phone | Unavailable | + + + Support + + +---------+ + | Name | Relationship | Address | Phone | + + +---------+ + | [place] | ECON | Unknown | | | Corrections | | | | + + +---------+ + Care Team Providers + +------+ + | Care Crepe Laminator Operator Name | Role | Phone | + +------+ + | Kevin Martin MD | PCP | | + +------+ + Encounter Details +--------+ + + + + | Date | Type | Department | Care Team | Description | +--------+ + + + + | 09/16/ | Orders Only | [facility] | Alise, | Diarrhea, | | 2019 | | GENERAL SURGERY 780 | [address]MA[address] | unspecified type | | | | [address] | [address] | (Primary Dx) | | | | [place], [place] | [place] [address] | | | | | [address] | [phone] | | | | | [phone] | | | +--------+ + + + [...]
--- OUTSIDE RECORDS SUMMARY | ~2020-04-21 | XMS | Encounter Summary ---
Demographics + + + | Address | [address] | | | [place] [address] | + + + | Home Phone | | + + + | Preferred Language | Unknown | + + + | Marital Status | Single | + + + | Hinduism Affiliation | Unknown | + + + | Race | Unknown | + + + | Ethnic Group | Unknown | + + + Author + + + | Author | [facility] | | | and [place] | + + + | Organization | [facility] | | | and [place] | + + + | Address | Unknown | + + + | Phone | Unavailable | + + + Support + + +---------+ + | Name | Relationship | Address | Phone | + + +---------+ + | [place] | ECON | Unknown | | | Corrections | | | | + + +---------+ + Care Team Providers + +------+ + | Care Customer Solutions Specialist Name | Role | Phone | + +------+ + | Kevin Martin MD | PCP | | + +------+ + Encounter Details +--------+ + + + + | Date | Type | Department | Care Team | Description | +--------+ + + + + | 06/22/ | Orders Only | [facility] | Juanpablo Ferrara | | | 2018 | | GENERAL SURGERY [address] | [address] | | | | | [address] | | | | | | [place] | | | | | | [address] | | | | | | [phone] | | | +--------+ + + + [...]
--- OUTSIDE RECORDS SUMMARY | ~2020-04-21 | XMS | Encounter Summary ---
Demographics + + + | Address | [address] | | | [place] [address] | + + + | Home Phone | | + + + | Preferred Language | Unknown | + + + | Marital Status | Single | + + + | Nondenominational Affiliation | Unknown | + + + | Race | Unknown | + + + | Ethnic Group | Unknown | + + + Author + + + | Author | [facility] | | | and [place] | + + + | Organization | [facility] | | | and [place] | [...] Team Providers + +------+ + | Care Fsr Name | Role | Phone | + [...] + + | 07/27/ | Telephone | [facility] | Juanpablo Ferrara | Other (prep) | | 2018 | | GENERAL SURGERY [address] | B, RN | | | | | [address] | | | | | | [place] | | | | | | [address] | | | | | | [phone] | | | +--------+ + + + [...]
--- OUTSIDE RECORDS SUMMARY | ~2020-04-21 | XMS | Encounter Summary ---
Demographics + + + | Address | [address] | | | [place] [address] | + + + | Home Phone [...] + | Author | [facility] | | | and [place] | + + + | Organization | [facility] | | | and [...] Providers + +------+ + | Care Director Pharmacy Services Name | Role | Phone | + +------+ + | eKvin Nath MD | PCP | | + [...] + + | 11/24/ | Surgery | [facility] | Delroy Lyons, | COLONOSCOPY | | 2020 | | [facility] | [address] | | | | | [address]TRA [address] | [address] | | | | | BLVD [place], [place] | [place] [address] | | | | | [address] | [phone] | | | | | [phone] | | | +--------+---------+ + + + [...] more runny stool and fo rmed stool. Machine Erector needed: no Last colonoscopy: yes Rectal Bleeding:yes [...] | + +--------+ + + + | SD COLONOSCOPY FLX | Routin | 11/24/2019 | [...] component was performed | | | by [employer], [address] [place] [address] (Medical | | | Director: Margarita Suarez MD; CLIA# [id number]). Professional | | | [facility] | | | [address] (Medical | | | Director: Lee Hathaway M.D.; CLIA#: [id number]). Diagnostician: | | | Margarita Suarez MDPathologistElectronically [...] | |The technical component was performed by [employer], [address] [place] [address] ([employer] Consultant: Margarita Suarez MD; CLIA# [id number]). Professional interpretation was performed by | | |[employer] ([employer] Consultant: Lee Hathaway M.D.; CLIA#: [id number]). | | | | | |Diagnostician: Margarita [...] Performed At | + + + | [facility] | [facility] | | [facility] | [facility]ATION | | CenterGastroenterology | | | Patient Name: Dylon Melissa | | | Procedure Date: 11/24/2019 8:15 AMMRN: [id number] | | | of : 1980 | [...] | | 8:15 AMNumber of Addenda: 0 [facility] | | | | | | | | |Delroy Lyons, | | |11/24/2019 9:08:36 AM | | |This report has been signed electronically. | | | | | |Note Initiated On: 11/24/2019 8:15 AM | | |Number of Addenda: 0 | | | | | | [facility] | | + + + + +---------+ + + | Performing | Address | City/State/[facility] [[email or web address] | Phone Number | | Organization | [...]
--- OUTSIDE RECORDS SUMMARY | ~2020-04-21 | XMS | Encounter Summary ---
Demographics + + + | Address | [address] | | | [place] [address] | + + + | Home Phone | | + + + | Preferred Language | Unknown | + + + | Marital Status | Single | + + + | Jain Affiliation | Unknown | + + + | Race | Unknown | + + + | Ethnic Group | Unknown | + + + Author + + + | Author | [facility] | | | and [place] | + + + | Organization | [facility] | | | and [place] [...] Team Providers + +------+ + | Care Social Problems Specialist Name | Role | Phone | [...] Radiology | Diagnoses | Ailbrendani, | [facility] | | Review | | | Lower | Delroy Miller MD | REGIONAL | | | | | abdominal | [address] | MEDICAL | | | | | pain | [address] | CENTER [address] | | | | | Procedures | [address] | | | | | CT Abdomen | [place], [place] | [place], [place] | | | | | Pelvis w | [address] | [address] | | | | | Contrast | Phone: | Phone: | | | | | | [phone] | [phone] | | | | | | Fax: | Fax: | | | | | | [phone] | [phone] | + +--------+ + + + + [...] + + | 11/24/ | Hospital | [facility] | Delroy Lyons, | Diarrhea, | | 2020 | Encounter | [facility] | [address] | unspecified type; | | | | INTRA OP [address] | [address] | Lower abdominal pain | | | | BLVD [place], [place] | [place] [address] | | | | | [address] | [phone] | | | | | [phone] | | | +--------+ + + + [...] more runny stool and fo rmed stool. Bookbinder Apprentice needed: no Last colonoscopy: yes Rectal Bleeding:yes [...] | + +--------+ + + + | [place] COLONOSCOPY FLX | Routin | 11/24/2019 | [...] component was performed | | | by [email or web address], [address] [place] [address] (Medical | | | Director: Margarita Suarez MD; CLIA# [id number]). Professional | | | interpretation was performed [email or web address] | | | [address] (Medical | | | Director: Lee Hathaway M.D.; CLIA#: [id number]). Diagnostician: | | | Margarita ODELLathologistElectronically Signed [...] | |The technical component was performed by [email or web address], [address] [place] [address] (Mobile Application Architect: Margarita Suarez MD; CLIA# [id number]). Professional interpretation was performed by | | |[email or web address] [address] (Mobile Application Architect: Lee Hathaway M.D.; CLIA#: [id number]). | | | | | |Diagnostician: Margarita [...] Performed At | + + + | [facility] | [facility] | | [facility] | PROVATION | | CenterGastroenterology | | | Patient Name: Dylon Melissa | | | Procedure Date: 11/24/2019 8:15 AMMRN: [id number] | | | of : 1980 | [...] | | 8:15 AMNumber of Addenda: 0 [facility] | | | | | | | | |Delroy Lyons, | | |11/24/2019 9:08:36 AM | | |This report has been signed electronically. | | | | | |Note Initiated On: 11/24/2019 8:15 AM | | |Number of Addenda: 0 | | | | | | [facility] | | + + + + +---------+ + + | Performing | Address | City/State/[facility] Centercode | Phone Number | | [...]
--- OUTSIDE RECORDS SUMMARY | ~2020-04-21 | XMS | Encounter Summary ---
Demographics + + + | Address | [address] | | | [place] [address] | + + + | Home Phone | | + + + | Preferred Language | Unknown | + + + | Marital Status | Single | + + + | Mandaeism Affiliation | Unknown | + + + | Race | Unknown | + + + | Ethnic Group | Unknown | + + + Author + + + | Author | [facility] | | | and [place] | + + + | Organization | [facility] | | | and [...] Team Providers + +------+ + | Care Retail Field Supervisor Name | Role | Phone | + +------+ + | Kevin Nath MD | PCP | | + +------+ + Encounter Details +--------+---------+ + + + | Date | Type | Department | Care Team | Description | +--------+---------+ + + + | 06/17/ | Office | [facility] | Delroy Lyons, | Diarrhea, | | 2019 | Visit | GENERAL SURGERY [address] | [address] | unspecified type | | | | [address] | [address] | (Primary Dx) | | | | [place], [place] | [place] [address] | | | | | [address] | [phone] | | | | | [phone] | | | +--------+---------+ + + + [...] more runny stool and fo rmed stool. Adult Manager needed: no Last colonoscopy: yes Rectal Bleeding:yes [...]
--- OUTSIDE RECORDS SUMMARY | ~2020-04-21 | XMS | Encounter Summary ---
Demographics + + + | Address | [address] | | | [place] [address] | + + + | Home Phone | | + + + | Preferred Language | Unknown | + + + | Marital Status | Single | + + + | Baptist Affiliation | Unknown | + + + | Race | Unknown | + + + | Ethnic Group | Unknown | + + + Author + + + | Author | [facility] | | | and [place] | + + + | Organization | [facility] | | | and [...] Team Providers + +------+ + | Care Criminology Professor Name | Role | Phone | + [...] + + | 09/15/ | Telephone | [facility] | Delroy Lyons, | Procedure | | 2019 | | GENERAL SURGERY [address] | MD [address] | | | | | [address] | [address] | | | | | [place], [place] | [place] [address] | | | | | [address] | [phone] | | | | | [phone] | | | +--------+ + + + [...] - 09/16/2019 8:36 AM PSTContacted Jeanette at [facility] a nd she stated that she needing to schedule the patients scope with Dr Lyons. Offered and Jeanette accepted on behalf of the patient. Jeanette requested the patient be to make transportation arrangements. No further questions or concerns. elephone Encounter - Camejoantonieta OseiBess ojeda - 09/15/2019 3:23 PM PSTBree- [facility], is calling [facility] Procedure and would like a call back. Additional Call Details: Calling to schedule colonoscopy. Please call her back at [phone] If this is a symptom based call, was patient offered triage? Not Applicable If this is a symptom based call and you were unable to immediately transfer the call to a bruce yap ice cream vendor was caller made aware that if at any time he feels it is an emergency they erin uld call 911 or go to the nearest emergency room? not applicable documented in this encounter Plan of Treatment Not on filedocumented as of this encounter Visit Diagnoses Not on filedocumented in this encounter"
--- OUTSIDE RECORDS SUMMARY | ~2020-04-21 | XMS | Encounter Summary ---
Demographics + + + | Address | [address] | | | [place] [address] | + + + | Home Phone | | + + + | Preferred Language | Unknown | + + + | Marital Status | Single | + + + | Voodoo Affiliation | Unknown | + + + | Race | Unknown | + + + | Ethnic Group | Unknown | + + + Author + + + | Author | [facility] | | | and [place] | + + + | Organization | [facility] | | | and [place] | + + + | Address | Unknown | + + + | Phone | Unavailable | + + + Support + + +---------+ + | Name | Relationship | Address | Phone | + + +---------+ + | [place] | ECON | Unknown | | | Corrections | | | | + + +---------+ + Care Team Providers + +------+ + | Care Automation And Controls Manager Name | Role | Phone | + +------+ + | Kevin Martin MD | PCP | | + +------+ + Encounter Details +--------+ + + + + | Date | Type | Department | Care Team | Description | +--------+ + + + + | 10/06/ | Orders Only | [facility] | Juanpablo Ferrara | | | 2019 | | GENERAL SURGERY [address] | [address] | | | | | [address] | | | | | | [place] | | | | | | [address] | | | | | | [phone] | | | +--------+ + + + [...]
--- OUTSIDE RECORDS SUMMARY | ~2020-04-21 | XMS | Encounter Summary ---
Demographics + + + | Address | [address] | | | [place] [address] | + + + | Home Phone | | + + + | Preferred Language | Unknown | + + + | Marital Status | Single | + + + | Worship Affiliation | Unknown | + + + | Race | Unknown | + + + | Ethnic Group | Unknown | + + + Author + + + | Author | [facility] | | | and [place] | + + + | Organization | [facility] | | | and [place] [...] Team Providers + +------+ + | Care Endodontics Dentist Name | Role | Phone | + [...] + + | 11/22/ | Telephone | [facility] | Juanpablo Ferrara | Other (Prep) | | 2020 | | GENERAL SURGERY [address] | B, RN | | | | | [address] | | | | | | [place] | | | | | | [address] | | | | | | [phone] | | | +--------+ + + + [...]
--- OUTSIDE RECORDS SUMMARY | ~2020-04-21 | XMS | Encounter Summary ---
Demographics + + + | Address | [address] | | | [place] [address] | + + + | Home Phone [...] Organization | [facility] | | | and [place] | + + + | Address | Unknown | + + + | Phone | Unavailable | + + + Support + + +---------+ + | Name | Relationship | Address | Phone | + + +---------+ + | [place] | ECON | Unknown | | | Corrections | | | | + + +---------+ + Care Team Providers + +------+ + | Care Adoption Specialist Name | Role | Phone | + +------+ + | Kevin Martin MD | PCP | | + +------+ + Encounter Details +--------+ + + + + | Date | Type | Department | Care Team | Description | +--------+ + + + + | 10/06/ | Orders Only | [facility] | Juanpablo Ferrara | | | 2019 | | GENERAL SURGERY [address] | [address] | | | | | [address] | | | | | | [place] | | | | | | [address] | | | | | | [phone] | | | +--------+ + + + [...]
--- OUTSIDE RECORDS SUMMARY | ~2020-04-21 | XMS | Encounter Summary ---
Demographics + + + | Address | [address] | | | [place] [address] | + + + | Home Phone [...] Organization | [facility] | | | and [place] | + + + | Address | Unknown | + + + | Phone | Unavailable | + + + Support + + +---------+ + | Name | Relationship | Address | Phone | + + +---------+ + | [place] | ECON | Unknown | | | Corrections | | | | + + +---------+ + Care Team Providers + +------+ + | Care Foundation Relations Manager Name | Role | Phone | [...] + + | 09/15/ | Telephone | [facility] | Delroy Lyons, | Procedure | | 2019 | | GENERAL SURGERY [address] | MD [address] | | | | | [address] | [address] | | | | | [place], [place] | [place] [address] | | | | | [address] | [phone] | | | | | [phone] | | | +--------+ + + + [...] OseiBess ojeda - 09/15/2019 3:23 PM PSTBree- [facility], [facility] Procedure and would like a call back. Additional Call Details: Calling to schedule colonoscopy. Please call her back at If this is a symptom based call, was patient offered triage? Not Applicable If this is a symptom based call and you were unable to immediately transfer the call to a bruce ypa rebar fabricator was caller made aware that if at any time he feels it is an emergency they erin uld call 911 or go to the nearest emergency room? not applicable documented in this encounter Plan of Treatment Not on filedocumented as of this encounter Visit Diagnoses Not on filedocumented in this encounter"
--- OUTSIDE RECORDS SUMMARY | ~2020-04-21 | XMS | Encounter Summary ---
Demographics + + + | Address | [address] | | | [place] [address] | + + + | Home Phone | | + + + | Preferred Language | Unknown | + + + | Marital Status | Single | + + + | Mormon Affiliation | Unknown | + + + | Race | Unknown | + + + | Ethnic Group | Unknown | + + + Author + + + | Author | [facility] | | | and [place] | + + + | Organization | [facility] | | | and [place] | + + + | Address | Unknown | + + + | Phone | Unavailable | + + + Support + + +---------+ + | Name | Relationship | Address | Phone | + + +---------+ + | [place] | ECON | Unknown | | | Corrections | | | | + + +---------+ + Care Team Providers + +------+ + | Care Hydraulic Lift Driver Name | Role | Phone | + [...] + + | 11/24/ | Surgery | [facility] | Delroy Lyons, | COLONOSCOPY | | 2020 | | [facility] | [address] | | | | | INTRA [address] | [address] | | | | | BLVD [place], [place] | [place] [address] | | | | | [address] | [phone] | | | | | [phone] | | | +--------+---------+ + + + [...] more runny stool and fo rmed stool. Goodwill Ambassador needed: no Last colonoscopy: yes Rectal Bleeding:yes [...] | + +--------+ + + + | [place] COLONOSCOPY FLX | Routin | 11/24/2019 | [...] stool. Signed by: | | | Jaquan Palu, Vinicio Sign Date/Time: 11/24/2019 1:01 PM | [...] component was performed | | | by [facility], [address] [place] [address] (Medical | | | Director: Margarita Suarez MD; CLIA# [id number]). Professional | | | interpretation was performed by[facility] | | | [address] (Medical | | | Director: Lee Hathaway M.D.; CLIA#: [id number]). Diagnostician: | | | Margarita Suarez MDPathologistElectronically [...] | |The technical component was performed by [facility], [address] [place] [address] (Vacuum Cleaner Assembler: Margarita Suarez MD; CLIA# [id number]). Professional interpretation was performed by | | |[facility] (Vacuum Cleaner Assembler: Lee Hathaway M.D.; CLIA#: [id number]). | | | | | |Diagnostician: Margarita [...] Performed At | + + + | [facility] | [facility] | | [facility] | PROVATION | | CenterGastroenterology | | | Patient Name: Dylon Melissa | | | Procedure Date: 11/24/2019 8:15 AMMRN: [id number] | | | of : 1980 | [...] | | 8:15 AMNumber of Addenda: 0 [facility] | | | | | | | | |Delroy Lyons, | | |11/24/2019 9:08:36 AM | | |This report has been signed electronically. | | | | | |Note Initiated On: 11/24/2019 8:15 AM | | |Number of Addenda: 0 | | | | | | [facility] | | + + + + +---------+ + + | Performing | Address | City/State/[facility] Cent[facility]ode | Phone Number | | [...]
--- OUTSIDE RECORDS SUMMARY | ~2020-04-21 | XMS | Encounter Summary ---
Demographics + + + | Address | [address] | | | [place] [address] | + + + | Home Phone [...] + | Organization | [facility] | | | and [place] [...] Team Providers + +------+ + | Care Patient Transportation Driver Name | Role | Phone | + +------+ + | Kevin Martin MD | PCP | | + +------+ + Encounter Details +--------+ + + + + | Date | Type | Department | Care Team | Description | +--------+ + + + + | 11/24/ | Anesthesia | [facility] | Amrita Ryder, | | | 2020 | Event | [facility] | [address] | | | | | INTRA OP [address] | [place] [address] | | | | | BLVD [place], [place] | [phone] | | | | | [address] | | | | | | [phone] | | | +--------+ + + + [...] | Antecubital; 20 gauge; removed | Kee Jermoe RN | Aimee Dee, | | IV [...] EVALUATION Dylon Melissa 39 y.o. male 1980 [id number] Procedure(s) COLONOSCOPY (N/A Rectum) Cooperates? Yes Mental [...] by Amrita Ryder MD 11/24/2019 8:33 AM [facility] nesthesia Preprocedure Evaluation - Amrita Ryder MD - 11/23/2019 6:36 PM PST ANESTHESIA PREANESTHESIA EVALUATION Dylon Melissa 39 y.o. male 1980 [id number] Procedure(s): COLONOSCOPY (N/A Rectum) Medical,anesthesia, drug, allergy [...] NOTE Dylonyajaira Youngtt 39 y.o. male 1980 [id number] COLONOSCOPY (N/A Rectum) HANDOFF NOTE Handoff Protocol [...] team. Amrita Ryder MD 11/24/2019 8:31 AM [facility] documented in this encounter Plan of Treatment [...]
--- OUTSIDE RECORDS SUMMARY | ~2020-04-21 | XMS | Encounter Summary ---
Demographics + + + | Address | [address] | | | [place] [address] | + + + | Home Phone | | + + + | Preferred Language | Unknown | + + + | Marital Status | Single | + + + | Jainism Affiliation | Unknown | + + + | Race | Unknown | + + + | Ethnic Group | Unknown | + + + Author + + + | Author | [facility] | | | and [place] | + + + | Organization | [facility] | | | and [place] | [...] Team Providers + +------+ + | Care Seam Rubber Name | Role | Phone | + [...] Radiology | Diagnoses | Ailbrendani, | [facility] | | Review | | | Lower | Delroy Miller MD | REGIONAL | | | | | abdominal | [address] | MEDICAL | | | | | pain | [address]VD [address] | [address] | | | | | Procedures | [address] | | | | | CT Abdomen | [place], [place] | [place] | | | | | Pelvis w | [address] | [address] | | | | | Contrast | Phone: | Phone: | | | | | | [phone] | [phone] | | | | | | Fax: | Fax: | | | | | | [phone] | [phone] | + +--------+ + + + + Encounter Details +--------+ + + + + | Date | Type | Department | Care Team | Description | +--------+ + + + + | 11/24/ | Orders Only | [facility] | Delroy Lyons, | Lower abdominal pain | | 2020 | | GENERAL SURGERY [address] | [address] | (Primary Dx) | | | | [address] | [address] | | | | | [place], [place] | [place] [address] | | | | | [address] | [phone] | | | | | [phone] | | | +--------+ + + + [...]
[~2020-04-21 20:34] MED LIST changes: +ZOFRAN ODT4 MG PO
[2020-04-21] MEDS ORDERED: EFFEXOR XR150 MG PO (20:42)
[2020-04-21] MEDS ORDERED: LAMICTAL150 MG PO (20:42)
[2020-04-21] MEDS ORDERED: DICYCLOMINE HCL20 MG PO (20:42)
--- NOTE | 2020-04-22 02:00 | NUR ---
TELEPHONE REPORT RECEIVED FROM ED RN ISA. ALL QUESTIONS ANSWERED, AWAITING PT'S ARRIVAL.
--- NOTE | 2020-04-22 02:15 | NUR ---
PT ARRIVED TO FLOOR WITH 2 CORRECTIONAL OFFICERS AT BEDSIDE. HE IS IN BED WITH CALL LIGHT CLOSE. STARTING MEDICAL HX AT THIS TIME AND VS/I&O'S.
--- NOTE | 2020-04-22 02:28 | NUR ---
VITALS AND BED WEIGHT DONE AND CHARTED. WATER GIVEN.
[2020-04-22] MEDS ORDERED: EFFEXOR XR75 MG PO (02:53)
--- NOTE | 2020-04-22 02:54 | NUR ---
ASSESSMENT COMPLETE, IV FLUIDS INFUSING. SITE WNL, BRISK BLOOD RETURN NOTED. PT COMPLAINT WITH CARE, VOCAL TOWARDS REMOVING EDGE CATHETER, STATING "IS THERE ANOTHER DOCTOR WHO CAN TAKE THIS OUT, IT'S BOTHERING ME. I JUST COULDN'T PEE BECAUSE OF THE DILAUDID". EDUCATION PROVIDED ON ORDER FOR CATHETER AND THAT DR ALBERTO WILL BE HERE IN THE MORNING TO ASSESS PT. PRN MORPHINE GIVEN FOR 7/10 PAIN ALONG WITH PRN ZOFRAN. VSS, LUNG SOUNDS CLEAR. PT REPORTS NUMBNESS AND TINGLING IN BLE, BILATERAL PEDAL PULSES EASILY NOTED. GUARDS X2 IN ROOM WITH PT, JELLO PROVIDED PER PT REQUEST. ICE WATER ALSO AT BEDSIDE. NO FURTHER NEEDS, CALL LIGHT IN REACH.
--- NOTE | 2020-04-22 03:15 | NUR ---
PT RESTING QUIETLY IN BED WITH EYES CLOSED, RR EVEN AND UNLABORED. NO DISTRESS NOTED. GUARDS X2 IN ROOM, CALL LIGHT IN REACH. O2 SAT UPPER 90'S ON RA, HR WNL.
--- NOTE | 2020-04-22 04:32 | NUR ---
PT RESTING IN BED WITH EYES CLOSED, RR EVEN AND UNLABORED. RATE 17, NO DISTRESS NOTED. CALL LIGHT IN REACH. GUARDS IN ROOM.
--- NOTE | 2020-04-22 06:20 | NUR ---
PT EXPERIENCING SYNCOPAL EPISODES WITH LOC, VARYING FROM 10-15 SECONDS TO APPROX ONE MINUTE. STRONG PULSES AND RESPIRATIONS NOTED, O2 SAT UPPER 90'S TO 100. BP 153/92 WITH MAP OF 106. 2MG MORPHINE GIVEN X1 BEFORE SYNCOPE EPISODES DUE TO PAIN, PT REPORTS SOME PRESSURE IN CHEST. DR ALBERTO MADE AWARE OF ABOVE INFORMATION, NEW ORDERS READ BACK FOR TELE. NO NEW ADDITIONAL ORDERS. GUARDS IN ROOM. MACHINE SETTER RETRIEVING TELE.
--- NOTE | 2020-04-22 06:25 | NUR ---
IN ROOM TO PLACE TELEMETRY ON PT. CORRECTIONAL OFFICERS STATE THAT HE CONTINUES TO HYPERVENTILATE, CLENCH UP AND PASS OUT AGAIN. TELEMETRY IS IN PLACE. PT STARTED CLENCHING UP AGAIN AND HYPERVENTILATING AND THEN WENT LIMP. HIS BREATHING WAS BACK IN NORMAL RANGE AND O2 SAT WAS 97% RA HIS EYES WERE PARTIALLY OPEN AND WHEN THIS RN SPOKE HE LOOKED IN MY DIRECTION WITH EYES PARTIALLY OPEN. HE HAS NOT BEEN VERBAL DURING THIS TIME AND IS NOT FOLLOWING DIRECTIONS. WILL CONTINUE TO MONITOR.
--- NOTE | 2020-04-22 06:50 | NUR ---
pt requesting something for pain, but does not rate pain for this rn. pt awake and on ra, o2 sat upper 90's, hr also in the 90's, sinus rhythm on tele# 6. pt awake and interacting with nursing staff, correctional officiers x2 also in room. no further needs.
--- NOTE | 2020-04-22 07:59 | NUR ---
Checked on patient as heart rate increased up to 129bpm. Pt appears to be stiffening his body while grasping the side rails in bed, eyes closed and his head thrashing side to side. After a minute or two of tense posturing pt appears to relax then go to a sleeping state. Oxygen saturation decreased to 88% on RA while he was tense. Once patient relaxes his heart rate decreased to 80/90's bpm and oxygen saturation increased to high 90's. This RN and charge, RN remained at beside during this episode for patient safety. Pt responsive to verbal stimuli post episode. Dr. Green and Charge nurse aware of situation. Correctional officers remain at bedside.
--- NOTE | 2020-04-22 09:07 | NUR ---
PATIENT AWAKE IN BED. OFFICERS IN ROOM. VITALS AND I&OS CHARTED. EDGE EMPTIED. DR ALBERTO IN ROOM TO VISDIT WITH PATIENT. NO OTHER NEEDS AT THIS TIME
--- NOTE | 2020-04-22 10:03 | NUR ---
[address] BOLUSE STARTED AND EDGE CATHETER CLAMPED ORDERED. INSTRUCTED PT TO CALL WHEN HE HAS THE NEED TO PEE. PT CALLED WITHIN 5 MINUTES AND PT WAS BLADDER SCANED AND HAS NO VOULME IN BLADDER AT THIS TIME. 2 OFFICERS REMAIN AT THE BEDSIDE, NOW PT IS TALKING WITH STAFF AND TELLING STAFF WHAT HE WANTS ANS THAT THE ORDERS THAT WHERE EXPLAINED TO HIM WILL NOT WORK. EXPLAINED TO HIM THAT WE WILL TRY WHAT THE DOCTOR WANTS AND IF IT DOES NOT WORK WE WILL LET HIM KNOW.
--- NOTE | 2020-04-22 10:49 | NUR ---
Toradol 30mg ivp admin for reports of stomach pain.
--- NOTE | 2020-04-22 12:00 | NUR ---
ANSWERED CALL LIGHT, PATIENT REPORTS HAVING TO URINATE. SEGUNDO ACOSTA AND THIS RECORDIST IN TO ASSIST. BLADDER SCANNED, AND EDGE REMOVED. PATIENT STOOD BEDSIDE TO USE URINAL. BLADDER SCANNED AGAIN, RN TOOK INFO TO DR ALBERTO. 2 OFFICERS STANDING BEDSIDE WELL. CALL LIGHT IN REACH, DENIES ANY OTHER NEEDS AT THIS TIME.
--- NOTE | 2020-04-22 12:01 | NUR ---
PT NEEDED TO VOID, BLADDER SCANED FOR 540 AND THEN CATHETER REMOVED, PT STOOD TO VOID FOR 250MLS, AND THEN BACK TO BED AND RESCANED FOR 224. DR ALBERTO NOTIFIED AND TO LEAVE THE CATHETER OUT AT THIS TIME. NO NEW ORDERS.
--- NOTE | 2020-04-22 12:58 | NUR ---
Pt declined to take his lamictal. This RN asked pt why he did not want this medication; his response was "I just don't want it".
--- NOTE | 2020-04-22 14:44 | NUR ---
Pt resting at this time, respirations even and non labored.
--- NOTE | 2020-04-22 15:50 | NUR ---
Pt back in room from surgery department. Pt alert and oriented x4, respirations are even and non labored. Pt reports abd pain level of 2/10. Pt denies nausea. Dad at bedside. Pt's vital signs are stable. Cpox intact, 97% on ra. No needs at this time.
--- NOTE | 2020-04-22 16:42 | NUR ---
Pt in bed resting, respirations even and non labored. Two correctional officers in room at all times. Pt has no needs. IV patent, infusing at this time. No needs.
--- NOTE | 2020-04-22 16:42 | NUR ---
medicated pt with 25mg visterial PO at this time "I am statrting to feel tense the way I did yesterday"
--- NOTE | 2020-04-22 17:52 | NUR ---
VITALS AND I&OS CHARTED. PATIENT REPORTS " I'M STARTING TO FEEL THAT WAY AGAIN" AND SHORTLY AFTER, HIS BODY STARTED STIFFENING AND BREATHING RAPIDLY. FLAILING IN BED. RN MAHAD IN ROOM. OFFICERS X2 IN ROOM. CALLLIGHT IN REACH.
--- NOTE | 2020-04-22 18:09 | NUR ---
In to check on patient, while in room pt had a minute episode of stiffened posturing with hands facing down with both fists clenched. Pt's head thrashed side to side a couple times. Pt did not lose consciousness. Vitals stable post event. Pt able to stand and walk to the bathroom post event. Two officers remain in room. Call light within reach.
--- NOTE | 2020-04-22 19:05 | NUR ---
SHIFT REPORT RECEIVED FROM DAYSVAFT SEGUNDO TOBIN AT BEDSIDE. PT RESTING IN BED WITH EYES CLOSED, RR EVEN AND UNLABORED, TELE#[address] HR 80'S NSR. GUARDS X2 IN ROOM. BOARD UPDATED.
--- NOTE | 2020-04-22 22:00 | NUR ---
ASSESSMENT COMPLETE, NO SCHEDULED MEDS AT THIS TIME. PT AWAKENS EASILY TO VOICE. VSS, NO REPORTS OF PAIN OR NAUSEA MADE BY PT. TELE#[address], SINUS RHYTHM. PT REPORTS HUNGER, SNACK PROVIDED. UP SBA TO BATHROOM WITH HELP FROM GUARDS, 250MLS OUTPUT NOTED. TOOTHBRUSH AND TOOTHPASTE PROVIDED PER REQUEST. PT RESTING IN CHAIR, EOCI RESTRAINTS IN PLACE. PT APPEARS VERY RELAXED AT THIS TIME DENIES NUMBNESS AND TINGLING. NO FURTHER NEEDS, CALL LIGHT IN REACH. GUARDS REMAIN IN ROOM.
--- NOTE | 2020-04-22 22:13 | EKG ---
[facility] [address] [place] [address] Signed Poor data quality, interpretation may be adversely affected Sinus tachycardia with short PA Rightward axis Pulmonary disease pattern Incomplete right bundle branch block Nonspecific ST abnormality Abnormal ECG When compared with ECG of 04-JUL-2016 06:55, Vent. rate has increased BY 93 BPM Incomplete right bundle branch block is now present Confirmed by MEGGAN ALBERTO MD ([id number]) on 04/22/2020 10:12:56 PM Electronically Signed By: MEGGAN ALBERTO MD 04/22/20 2213 PATIENT NAME: KIARA YUN Electrocardiogram DATE OF : 78 PHYSICIAN: MEGGAN ALBERTO MD REPORT #: [id number] REPORT IS CONFIDENTIAL AND NOT TO BE RELEASED WITHOUT AUTHORIZATION
--- NOTE | 2020-04-22 22:18 | NUR ---
VITALS AND I&OS DONE AND CHARTED. FRESH WATER GIVEN. BEDSIDE TABLE AND CALL LIGHT IN REACH.
--- NOTE | 2020-04-22 23:32 | NUR ---
SANDWHICH BOX PROVIDED PER PT REQUEST. PT RESTING IN CHAIR, REPORTS SOME CRAMPING IN HANDS AND FEET. MILD RESTLESSNESS NOTED, PRN TYLENOL GIVEN FOR 5/10 PAIN. PRN VISTARIL OFFERED, DECLINED BY PT. PT STATES, "I DON'T THAT STUFF, IT'S WHAT THEY GAVE ME EARLIER". WILL MONITOR, TELE#[address], HR 97, SINUS RHYTHM. GUARDS IN ROOM.
--- NOTE | 2020-04-23 00:14 | NUR ---
this rn in room to answer call light. pt resting in chair, tense with hands clenched. tele#[address], hr mildly tachy just above 100. prn vistaril and toradol given to help relax pt. when this rn entered room to give meds guard states he recently passed out, rn found pt awake. o2 sat 99% on ra, hr 90's. no distress noted. pt then ambulated to bathroom to void and back to chair. states he is "feeling better". iv site wnl. no additional needs, call light in reach.
--- NOTE | 2020-04-23 00:24 | NUR ---
guard at rn station stating pt is hungry. snack and coffee provided per request to guard.
--- NOTE | 2020-04-23 01:04 | NUR ---
GUARD TO RN STATION, PUMP ALARMING. DISTAL OCCLUSION AFTER VOIDING. ISSUE RESOLVED, IV FLUIDS RESUMED. URINAL EMPTIED. NO NEEDS OR CONCERNS VERBALIZED.
--- NOTE | 2020-04-23 02:30 | NUR ---
PT AWAKE AND RESTING IN CHAIR, RR EVEN AND UNLABORED. TELE#[address], SINUS RHYTHM. GUARDS X2 IN ROOM.
--- NOTE | 2020-04-23 02:38 | NUR ---
GUARD TO RN STATION, REPORTING PT IS TENSE. THIS RN IN ROOM TO ASSESS, PT FOUND IN BED AWAKE. ARMS AND LEGS TENSE, ENCOURAGED TO DEEP BREATH, TELE#[address], HR UP TO 115 THE RESOLVED. BACK TO 70'S-80'S. GUARDS IN ROOM.
--- NOTE | 2020-04-23 03:00 | NUR ---
IN ROOM TO ROUND ON PT. PT AWAKE AND RESTING IN BED, HR 79, SINUS RHYTHM. RR EVEN AND UNLABORED, NO DISTRESS OR SIGNS OF PAIN NOTED. PT NODDED IF HE WAS DOING GOOD, NO NEEDS VERBALIZED. GUARDS IN ROOM.
--- NOTE | 2020-04-23 03:20 | NUR ---
EOCI GUARD AT RN STATION, REPORTS URINAL NEEDS EMPTIED. IN ROOM, URINAL EMPTIED. ASSESSMENT COMPLETE. VS TAKEN AND STABLE. NO PAIN VERBALIZED, PT DOES REPORT ABDOMAINL CRAMPING, PRN MEDICATION GIVEN (SEE EMAR). PT INTERACTIVE WITH EOCI GUARDS AND LAUGHING NOTED. PT STATES, "DO YOU THINK THE DOCTOR WILL LET ME GO HOME TOMORROW. I WANNA GET BACK IN TIME FOR THE CANTEEN". PT REPORTS THAT IS THE STORE IN THE [place] AND VERBALIZES DESIRE TO MAKE IT IN TIME TO GET WHAT HE WANTS BEFORE IT CLOSES. PT ALSO ASKING IF HOSITAL SERVES [place]. DENIES FURTHER NEEDS, CALL LIGHT IN REACH.
--- NOTE | 2020-04-23 03:59 | NUR ---
INFORMED BY EOCI GUARD PT PASSED OUT, PT AWAKE BY THE TIME THIS RN IN ROOM. PT UP AND VOIDING IN BATHROOM WITH ASSITANCE FROM GUARDS X2. TELE#[address], HR 70'S TO 80'S.
--- NOTE | 2020-04-23 04:11 | NUR ---
PT BACK TO BED AFTER VOIDING, 98% ON RA. RR EVEN AND UNLABORED. HR 96, SINUS RHYTHM. CPOS IN PLACE TO MONITOR. PT STATES HE IS FEELING BETTER, REQUESTING SHERBET. NO FURTHER NEEDS AT THIS TIME, GUARDS X2 IN ROOM.
--- NOTE | 2020-04-23 04:23 | NUR ---
IV PUMP ALARMING, DISTAL OCCLUSION. ISSUE RESOLVED AND WORKING WELL. NO NEEDS AT THIS TIME.
--- NOTE | 2020-04-23 04:53 | NUR ---
EOCI GUARD TO RN STATION. PT ASKING FOR COFFEE AND WHEN BREAKFAST CAN BE ORDERED. COFFEE AND SNACK PROVIDED. NO FURTHER NEEDS.
--- NOTE | 2020-04-23 05:19 | NUR ---
THIS RN IN ROOM, HR UP TO 140'S VIA TELE#6. THIS RN ENTERED THE ROOM, PT FOUND WITH EYES CLOSED. RR EVEN AND UNLABORED. PER GUARD, PT RECENTLY PASSED OUT. PT AWOKE WITHIN 10-15 SECONDS. HR QUICKLY RETURNED TO 80'S TO 90'S. VSS AFTER EVENT. PT APPEARS COMFORTABLE AND DENIES NEEDS. I&O'S ALSO DONE.
--- NOTE | 2020-04-23 05:26 | NUR ---
VITALS AND I&OS DONE AND CHARTED. GARBAGES EMPTIED. BEDSIDE TABLE AND CALL LIGHT IN REACH. I ASKED TO FILL HIS CUP WITH FRESH WATER , HE REFUSED. PT NEEDS NOTHING MORE AT THIS TIME.
--- NOTE | 2020-04-23 05:43 | NUR ---
PT SPENT MOST OF THE SHIFT AWAKE AND RESTING IN BED OR CHAIR. PT HAD FOUR REPORTS OF PASSING OUT, TYPICALLY LASTING LESS THAN 30 SECONDS WITH ONE LASTING 1-2 MINUTES PER EOCI GUARD. VSS, TELE#[address]. HR UP TO 140'S BRIEFLY WITH LAST REPORTED SYNCOPAL EPISODE, RESOLVED QUICKLY WITHOUT MEDICAL INTERVENTION. PT SBA WITH AMBULATION, EOCI RESTRAINTS IN PLACE. REGULAR DIET, TOLERATING WELL. ATE MULTIPLE SNACKS WELL A SANDWHICH BOX, VOIDING QS. IV SITE WNL, SALINE LOCKED.
--- NOTE | 2020-04-23 06:29 | NUR ---
MESSAGE SENT TO DR ALBERTO REGARDING PT'S SYNCOPAL EPISODES DURING THE NIGHT.
--- NOTE | 2020-04-23 06:45 | NUR ---
PT TENSE IN BED, HANDS CLENCHED AND FACING DOWNWARD, BODY STIFF AND BOARDLIKE. HR JUMPING TO 140'S TO 150'S, THEN RETURNS WNL. THIS RN AND CREDIT CONTROL ADMINISTRATOR IN ROOM TO ASSESS. PT INSTRUCTED FOR SEVERAL MINUTES TO DEEP BREATH, PT INITIALLY REFUSED VISTARIL. BRIEFLY PASSED OUT PER GUARDS FOR APPROX 30 SECONDS. PT THEN AGREES TO VISTARIL, DRY HEAVING NOTED BUT NO EMESIS. PT THEN UP TO VOID WITH HELP FROM GUARDS, PER GUARDS PT PASSED OUT AGAIN IN FRONT OF SINK AND GENTLY PLACED HEAD ON SINK COUNTER. GUARDS STATE "WE PICKED HIM UP UNDER THE ARMS AND WE DRAGGED HIM BACK TO BED". PER GUARDS PT DID NOT FALL AND DID NOT HIT HEAD. PT AWAKE NOW AND RESTING IN BED, O2 SAT UPPER 90'S. DR ALBERTO MADE AWARE OF ABOVE EVENTS AND EVENTS DURING THE NIGHT. NO NEW ORDERS.
--- NOTE | 2020-04-23 07:15 | NUR ---
received report from efrain mirza this am. pt able to track with eyes but not answering questions this am. garcia at bedside at this time
--- NOTE | 2020-04-23 07:44 | NUR ---
PATIENT RESTING IN BED. TWO GUARDS IN ROOM. WHITE BOARD UPDATED. CALL LIGHT WITHIN REACH. NO OTHER NEEDS AT THIS TIME
--- NOTE | 2020-04-23 08:00 | NUR ---
[facility] THIS RN THAT PT WAS HAVING ONE OF HIS "EPISODES". THIS RN INTO PTS ROOM. THIS RN HELD PTS ARM OVER HIS FACE- PT ABLE TO KEEP HAND OVER HIS FACE FOR A FEW SECONDS AND THEN LET IT FALL AND PT DID ALLOW FOR HIS HAND TO HIT HIS FACE. PT DID RESPOND TO RIB PITCH PAIN STIMULOUS.
--- NOTE | 2020-04-23 08:15 | NUR ---
EOCI GUARD TO NURSES STATION TO NOTIFY THIS RN THAT PT WAS HAVING ANOTHER "EPISODE" THIS RN IN ROOM TO LAY EYES ON PT. PT TENSED UP AND ARCHING BACK. PT THEN ABLE TO CALM HIMSELF IN LESS THAN 1 MINUTE.
--- NOTE | 2020-04-23 08:23 | NUR ---
PT IN BED WITH CLOTH OVER HIS FACE, HE REMOVED THE TELE FROMHIMSELF AND DOES NOT WANT IT BACK ON AT THIS TIME.
--- NOTE | 2020-04-23 09:22 | NUR ---
PATIENT RESTING IN BED. TWO GUARDS IN ROOM. VITAL SIGNS AND I&O DONE. HIGH BLOOD PRESSURE. RN NOTIFIED. CALL LIGHT WITHIN REACH. NO OTHER NEEDS AT THIS TIME
--- NOTE | 2020-04-23 09:43 | NUR ---
PT CONTIOUES TO HAVE MUSCEL TENSES AND BLANK STAIR AT STAFF OFFICERS AT [facility] AND PT PUSHED HARD ENOUGHT THAT HE BROKE THE BED. DR ALBERTO NOTIFIED AND PT MEDICATED WITH ATIVAN 1 MG AND 30MG TORDAL AND 5MG COMPAZINE. PT HAS EATEN CEREAL FOR BKF. SEZIER PADS ON THE BED. NEW ORDER FOR CT OF HEAD
--- NOTE | 2020-04-23 09:45 | NUR ---
PT CALMED DOWN A BIT AND READY TO GO TO CT. AT BEDSIDE
--- NOTE | 2020-04-23 10:15 | NUR ---
PT TO CT VIA BED, NO SEZIURE ACTIVITY DURING THIS TIME, PT ABLE TO TRANSFER SELF FROM BED TO CT TABLE AND THEN BACK AND THE CXR COMPLETED. PT BACK TO HIS BED AND TRANSFEERED BACK TO ROOM 113. OFFICERS AT BEDSIDE AT ALL TIMES. PT ABLE TO FOLLOW DIRECTIONS AND WAS COOPERATIVE WITH THE PROCESS.
--- NOTE | 2020-04-23 12:02 | NUR ---
EOCI GUARD OUT TO NOTIFY THIS RN THAT PT IS RESTORATIONISM AND CANNOT HAVE ANY PORK. LOOM TECHNICIAN KAITLYN ORDERED PT A NEW BREAKFAST TRAY WITHOUT OTT
--- NOTE | 2020-04-23 13:34 | NUR ---
PATIENT RESTING IN BED. TWO GUARDS IN ROOM. VITAL SIGNS DONE BY RN. I&O DONE. CALL LIGHT WITHIN REACH. NO OTHER NEEDS AT THIS TIME
--- NOTE | 2020-04-23 14:55 | NUR ---
PT NPO AT HIS TIME DUE TO TRAFERING BY GROUND TO A HIGHER LEVEL OF CARE. WAITTING ON BED COMFERMATION AT THIS TIME.
--- NOTE | 2020-04-23 16:44 | NUR ---
IV FLUIDS STARTED DUE TO PT NPO STATUS AND WAITING FROM TRANSFER TO [facility] THIS EVENING.
--- NOTE | 2020-04-23 17:59 | NUR ---
PATIENT RESTING IN BED. TWO GUARDS IN ROOM. VITAL SIGNS AND I&O DONE. PATIENT DID NOT VOID DURING THIS PERIOD. RN NOTIFIED. CALL LIGHT WITHIN REACH. NO OTHER NEEDS AT THIS TIME
--- NOTE | 2020-04-23 18:58 | NUR ---
PATIENT RESTING IN BED. TWO GUARDS IN ROOM. THE FINAL VITAL SIGNS WERE OBTAINED PRIOR TO DISCHARGE FROM THE UNIT
--- NOTE | 2020-04-23 19:20 | NUR ---
pt OFF FLOOR WITH VERONICA FIRE AT THIS TIME. VSS. SEGUNDO CARBALLO TO CALL REPORT TO LEOPOLDO RAYMOND.
== END 2020-04-23 19:20 | disposition short-term general hospital (02) ==
LOC: ED 20:34 → MS 20:35
PROVIDERS: ADMIT Internal Medicine
DX: E86.0 Dehydration (principal); R11.2 Nausea with vomiting, unspecified; R55 Syncope and collapse; R33.9 Retention of urine, unspecified; R74.0 Nonspecific elevation of levels of transaminase and lactic acid dehydrogenase [LDH]; R56.9 Unspecified convulsions; G89.29 Other chronic pain; R10.9 Unspecified abdominal pain; Z79.899 Other long term (current) drug therapy; Z88.0 Allergy status to penicillin; Z88.1 Allergy status to other antibiotic agents
CPT/HCPCS: 51702; 51798; 70450; 71045; 74177; 80053; 81001; 83690; 83735; 84146; 84484; 85025; 85651; 87521; 87522; 87902; 93005; 93010; 96375; 96376; 99285-25; C9113; C9803; G0378; J0780; J1170; J1200; J1885; J2060; J2270; J2405; J2550; J7030; J7121; Q0177; Q9967; U0002

== ENCOUNTER 2020-04-24 23:39 | Emergency (ER) | payer OTHER ==
[~2020-04-24] VITALS: Ht 188 cm; Wt 89.5 kg
--- OUTSIDE RECORDS SUMMARY | ~2020-04-24 | XMS | Clinical Summary ---
Demographics + + + | Address | [address] | | | [place] [address] | + + + | Home Phone | | + + + | Preferred Language | Unknown | + + + | Marital Status | Single | + + + | Christianity Affiliation | Unknown | + + + | Race | Unknown | + + + | Ethnic Group | Unknown | + + + Author + + + | Author | [facility] | | | and [place] | + + + | Organization | [facility] | | | and [place] | + + + | Address | Unknown | + + + | Phone | Unavailable | + + + Support + + +---------+ + | Name | Relationship | Address | Phone | + + +---------+ + | [place] | ECON | Unknown | | | Corrections | | | | + + +---------+ + Care Team Providers + +------+ + | Care [place] Name | Role | Phone | + +------+ + | Kevin Martin MD | PCP | | + +------+ + Allergies + + + + + + | Active Allergy | Reactions | Severity | Noted | Comments | | | | | Date | | + + + + + + | Ciprofloxacin | Rash | Medium | 05/28/20 | Rash | | | | | 16 | | + + + + + + | Fish Allergy | Unknown | | 04/24/20 | | | | | | 20 | | + + + + + + | Penicillins | Anaphylaxis | High | 05/28/20 | | | | | | 16 | | + + + + + + Medications + + + +---------+------+------+-------+ | Medication | Sig | Dispensed | Refills | Star | End | Statu | | | | | | t | Date | s | | | | | | Date | | | + + + +---------+------+------+-------+ | dicyclomine | Take 20 mg by mouth | | 0 | | | Activ | | (BENTYL) 20 MG | every 6 hours. | | | | | e | | tablet | | | | | | | + + + +---------+------+------+-------+ | lamoTRIgine | Take 300 mg by mouth | | 0 | | | Activ | | (LAMICTAL) 150 MG | nightly . | | | | | e | | tablet | | | | | | | + + + +---------+------+------+-------+ | venlafaxine | Take 225 mg by mouth | | 0 | | | Activ | | (EFFEXOR XR) 150 mg | daily (with | | | | | e | | 24 hr tablet | breakfast) . | | | | | | + + + +---------+------+------+-------+ Active Problems + + + | Problem | Noted Date | + + + | Witnessed seizure-like activity | 04/23/2020 | + + + | Syncope and collapse | 04/23/2020 | + + + | Chronic diarrhea | 04/23/2020 | + + + | Chronic abdominal pain | 04/23/2020 | + + + | Mood disorder | 04/23/2020 | + + + | Diarrhea, unspecified type | 06/21/2019 | + + + + + | Overview: Added automatically from request for surgery | | [id number] | + + + + + | Constipation | 06/17/2019 | + + + | Postoperative hemorrhage | 06/17/2019 | + + + | Abdominal pain | 06/17/2019 | + + + | Chest pain | 06/17/2019 | + + + | Slow transit constipation | 05/06/2018 | + + + | Diarrhea | 01/03/2018 | + + + | Precordial pain | 05/28/2016 | + + + | SSS (sick sinus syndrome) | 05/28/2016 | + + + | Precordial pain | 05/28/2016 | + + + + + | Overview: Last Assessment & Plan: Chest pain. 35yo | | WM, with complaints of chest pain, "my whole life". These appear | | to be random in occurrence, lasting 15-20 minutes, although | | sometimes longer, sometimes shorter. He states that in the past | | and nitroglycerin has helped. The chest pain is in the left side | | of his chest, rating towards the left arm and sometimes into the | | jaw. It is associated with shortness of breath and diaphoresis, | | but no nausea or lightheadedness. His chest discomfort is not | | associated with palpitations, although he has had palpitations in | | the past, again random, and associated with dizziness, but no | | recurrent syncope. He is modestly active, at times playing | | basketball, physical activity does not appear to aggravate his | | symptoms, they have. Be more random in occurrence. He did have | | one episode of syncope, at the age of 13, he was in [place] at | | time, was taken to a local emergency room, apparently he does | | not recall any specific diagnosis or instructions. He is unaware | | of any personal history of coronary artery disease, myocardial | | infarction, congestive heart failure, congenital heart disease, | | rheumatic heart disease. His mother apparently has an enlarged | | heart. He has not smoked during his incarceration (approximately | | one year). There is no history of hypertension, hyperlipidemia, | | or diabetes. To rule out coronary artery disease, a CT coronary | | calcium score would be the most efficient way to rule out | | CAD.ECG, 03/12/2016 ([facility]): NSR, 74bpm.ECG, 04/19/2016 | | ([facility]): sinus arrhythmia, PRWP.ECG, 05/21/2016 ([facility]): NSR, | | 76bpm.Labs, 04/30/2016: AST/ALT: 57/125, K: 4.1, BUN/Cr: 13/0.8, | | glu: 81 TSH: 1.17, WBC: 8.1, H/H: | | 14.8/46.1, plt: 317CXR, 03/12/2016: Lungs clear, no pleural | | effusion or pneumothorax. Normal heart, mediastinum, no CHF. | | Lungs without pneumonia, no CHF. | + + + + + | SSS (sick sinus syndrome) | 05/28/2016 | + + + + + | Overview: Last Assessment & Plan: Sick Sinus Syndrome. | | Palpitations, tachy and idris episodes, however, difficult yo say | | if these are symptomatic. Although he states "dizziness", | | symptoms correlate poorly with arrhythmias. Patient states only | | one episode of syncope, at the age of 13, apparently, was taken | | to ER, he does not recall any diagnosis or treatment | | recommendations. In the absence of syncope, would not treat, | | would avoid any medications that would potentially slow the heart | | rate (b-blockers, CCB's, digoxin).11-Day Cardiac Event Monitor, | | 03/20/2016-03/31/2016: sinus rhythm, 30-188, averaging 75bpm. One | | 3.2sec pause (apparently, asymptomatic). Patient-triggered | | events 03/23/2016, 4:58pm (heart rate 39-59bpm), 03/23/2016, 9:58am | | (heart rate 34-62bpm), 03/28/2016, 3:01pm (heart rate 180bpm). | | However, on 03/28/2016, 8:50am (heart rate 23-57) apparently | | asymptomatic. And on 03/24/2016, 2:02pm (heart rate 184bpm) also | | asymptomatic. | + + + + + | Rectal pain | 05/27/2016 | + + + Resolved Problems + + + + | Problem | Noted | Resolved | | | Date | Date | + + + + | GERD with esophagitis | 04/23/20 | | | | 20 | 0 | + + + + Encounters +--------+ + + + + | Date | Type | Specialty | Care Team | Description | +--------+ + + + + | 04/23/ | Hospital | Internal Medicine | Fredy Yeager, | Chronic abdominal | | 2019 - | Encounter | | MD Adams, | pain; Chronic | | | | | Joi Butts MD | diarrhea; GERD with | | 04/24/ | | | | esophagitis; Mood | | 2019 | | | | disorder (HCC); | | | | | | Syncope and | | | | | | collapse; Witnessed | | | | | | seizure-like | | | | | | activity ([facility]); | | | | | | Functional | | | | | | neurological symptom | | | | | | disorder with | | | | | | abnormal movement | +--------+ + + + + from Last 3 Months Immunizations + + + + | Name | Administration Dates | Next Due | + + + + | HEP A/HEP B, 3 DOSE | 09/24/2012, 04/19/2009 | | | (ADULT) | | | + + + + | HEP B, 3 DOSE | 06/15/2015 | | | (ADULT) | | | + + + + | INFLUENZA TRIV | 02/17/2015, 12/02/2013, 08/18/2012 | | | W/PRES(PED/ADOL/ADUL | | | | T),MULTIDOSE | | | + + + + | PNEUMOCOCCAL | 02/17/2015 | | | POLYSACCHARIDE | | | | 23-VALENT (PPSV23) | | | + + + + | TDAP, (ADOL/ADULT) | 02/17/2015 | | + + + + Family History + + +------+ + | Medical History | Relation | Name | Comments | + + +------+ + | Heart disease | Maternal | | | | | Grandfath | | | | | er | | | + + +------+ + | Hypertension | Maternal | | | | | Grandfath | | | | | er | | | + + +------+ + | Stroke | Maternal | | | | | Grandfath | | | | | er | | | + + +------+ + | Heart disease | Maternal | | | | | Grandmoth | | | | | er | | | + + +------+ + | Heart disease | Mother | | | + + +------+ + | Hypertension | Mother | | | + + +------+ + + +------+--------+ + | Relation | Name | Status | Comments | + +------+--------+ + | Father | | Alive | unknown status | + +------+--------+ + | Maternal Grandfather | | Alive | heart disease, triple bypass, HTn, CVA | + +------+--------+ + | Maternal Grandfather | | | | + +------+--------+ + | Maternal Grandmother | | Alive | heart disease | + +------+--------+ + | Maternal Grandmother | | | | + +------+--------+ + | Mother | | Alive | heart disease, HTN | + +------+--------+ + | Mother | | | | + +------+--------+ + Social History + +-------+ +--------+------+ | [...] on file | | + + + Last Filed Vital Signs + + + [...] | | + + + + + Plan of Treatment + + + + + | Health Maintenance | Due Date | Last | Comments | | | | Done | | + + + + + | Hepatitis C | | | | | Screening | 0 | | | + + + + + | Vaccine: Influenza | | 02/18/20 | | | (#1) | 0 | 15, | | | | | 12/03/19 | | | | | 14, | | | | | 08/18/20 | | | | | 12 | | + + + + + | Vaccine: | | 02/18/20 | | | Dtap/Tdap/Td (2 - | 5 | 15 | | | Td) | | | | + + + + + Procedures + +--------+ + + + | [...] section. | + +--------+ + + + from Last 3 Months Results ECHO Complete (04/24/2020 8:31 AM PDT) [...] Tech 04/24/2020 7:45 AM | | | [facility] [address] [place] [address] | | | [place] [address] Patient: Dylon Bahena ID: [id number] : | | | 1980 Age: 39 Gender: male Room: 18 Physician: Danie | | | [employer] Room Attendant: Dawn Zavala Ref. Physician: Fredy Yeager MD | | | [...] | | | | | performed at [facility];[address] | | | | [address];[place], [place] | | | | | | [address] | | | | + + + + + + + + | Specimen | + + | Blood | + + + + + + + | Performing | Address | City/State/Zipcode | Phone Number | | Organization | | | | + + + + + | [facility] | [address] | [place] [address] | [phone] | + + + + + CBC [...] | | | Absolute | performed at [facility], [address] | [address] | LABORATORY | | | | [address], | | | | | | [place] [address] | | | | + + + + + + + + | Specimen | + + | Blood | + + + + + + + | Performing | Address | City/State/Zipcode | Phone Number | | Organization | | | | + + + + + | [facility] | [address] | [place] [address] | [phone] | + + + + + Magnesium (04/24/2020 5:30 AM PDT) + + + + + + | Component | Value | Ref Range | Performed | Pathologist | | | | | At | Signature | + + + + + + | Magnesium | 2.0Comment: Testing | 1.7 - 2.4 mg/dL | [facility] | | | | performed at [facility];[address] | | LABORATORY | | | | [address];[place] | | | | | | [address] | | | | + + + + + + + + | Specimen | + + | Blood | + + + + + + + | Performing | Address | City/State/Zipcode | Phone Number | | Organization | | | | + + + + + | [facility] | [address] | [place] [address] | [phone] | + + + + + Comprehensive [...] (H) | 10 - 65 U/L | [facility] | | | | | | LABORATORY | | + + + + + + | Estimated | >60Comment: GFR <60: | >60 | [facility] | | | GFR | CHRONIC KIDNEY [...] | | | | | | MDRD IDMS traceable | | | | | | equation.Testing | | | | | | performed at [facility], [address] | | | | | | [facility], | | | | | | [place] [address] | | | | + + + + + + + + | Specimen | + + | Blood | + + + + + + + | Performing | Address | City/State/Zipcode | Phone Number | | Organization | | | | + + + + + | [facility] | [address] | [place] [address] | [phone] | + + + + + MRI [...] Procedure Note | + + | [place], [id number] - 04/24/2020 5:36 AM PDT | | [...] SARS-CoV-2, | NEGATIVEComment: This | NEG | [facility] | | | NAAT | test was [...] | | | | | performed at [facility] | | | | | | [facility];[place], [place] | | | | | | [address] | | | | + + + + + + + + | Specimen | + + | Tissue - Entire | | nasopharynx (body | | structure) | + + + + + + + | Performing | Address | City/State/Zipcode | Phone Number | | Organization | | | | + + + + + | [facility] | [address] | [place] [address] | [phone] | + + + + + from Last 3 Months Insurance + +--------+ +--------+-------+---------+--------+ | Payer | Benefi | Subscriber | Effect | Phone | Address | Type | | | t Plan | ID | teresa | | | | | | / | | Dates | | | | | | Group | | | | | | + +--------+ +--------+-------+---------+--------+ | DEPARTMENT OF | CORRCT | [id number] | | | | Indemn | | CORRECTIONS | [place] | | 019-Pr | | | ity | | | HLTH | | esent | | | | | | FIRST | | | | | | | | [place] | | | | | | + +--------+ +--------+-------+---------+--------+ + +--------+ +--------+ + + | Guarantor Name | Accoun | Relation to | Date | Phone | Billing Address | | | t Type | Patient | of | | | | | | | | | | + +--------+ +--------+ + + | ZOIE VELA | Corpor | Non | [birth year] | [address] | | [place] | ate | Relative | 1902 | [phone] | [place] [address] | | | | | | 1 (Home) | | | | | | | [phone] | | | | | | | 0 (Work) | | + +--------+ +--------+ + + | Dylon Melissa | Person | Self | [birth year] | [address] | | | al/Fam | | 1981 | [phone] | [place] [address] | | | sameer | | | 9 (Home) | | + +--------+ +--------+ + + Advance Directives + + + + + | Type | Date Recorded | Patient | Explanation | | | | Vice President Planning | | + + + + + | Power of | | | | | Machinery Engineer | | | | + + + + + | Advance | 09/17/2019 | | | | Directive | 11:39 AM | | | + + + + + + + + + + | Code Status | Date | Date | Comments | | | Activated | Inactivated | | + + + + + | Full Code | 04/23/2020 | 04/24/2020 | | | | 9:57 PM | 8:20 PM | | + + + + +
--- OUTSIDE RECORDS SUMMARY | ~2020-04-24 | XMS | Encounter Summary ---
Demographics + + + | Address | [address] | | | [place] [address] | + + + | Home Phone | | + + + | Preferred Language | Unknown | + + + | Marital Status | Single | + + + | Church Affiliation | Unknown | + + + | Race | Unknown | + + + | Ethnic Group | Unknown | + + + Author + + + | Author | [facility] | | | and [place] | + + + | Organization | [facility] | | | and [place] | + + + | Address | Unknown | + + + | Phone | Unavailable | + + + Support + + +---------+ + | Name | Relationship | Address | Phone | + + +---------+ + | [place] | ECON | Unknown | | | Corrections | | | | + + +---------+ + Care Team Providers + +------+ + | Care Manager Outpatient Name | Role | Phone | + [...] + + | 10/04/ | Telephone | [facility] | Delroy Lyons, | Procedure | | 2020 | | GENERAL SURGERY [address] | MD [address] | (Instructions/ Prep | | | | [address] | [address] | for 10/20/19) | | | | [place], [place] | [place] [address] | | | | | [address] | [phone] | | | | | [phone] | | | +--------+ + + + [...] Miscellaneous Notes Telephone Encounter - Alexus Chaves, Commercial Sales Consultant - 10/11/2019 11:08 AM PSTPrep in structions sent to [facility] via fax. Fax confirmation received. Electr onically signed by Alexus Chaves, Commercial Sales Consultant at 10/11/2019 11:08 AM PSTTelePamela Martinez 10/04/2019 9:25 AM PSTCassidgaye- [facility], is calling regarding Procedure (Instructions/ Prep for 10/20/19) and would like a call back. Additional Call Details: Caller would like the prep instructions for patient's 10/20/19 pro cedure. Please fax to [phone]. If this is a symptom based call, was patient offered triage? Not Applicable If this is a symptom based call and you were unable to immediately transfer the call to a p fracisco carburetor expert was caller made aware that if at any time he feels it is an emergency they erin uld call 911 or go to the nearest emergency room? not applicable documented in this encounter Plan of Treatment Not on filedocumented as of this encounter Visit Diagnoses Not on filedocumented in this encounter"
--- OUTSIDE RECORDS SUMMARY | ~2020-04-24 | XMS | Encounter Summary ---
Demographics + + + | Address | [address] | | | [place] [address] | + + + | Home Phone | | + + + | Preferred Language | Unknown | + + + | Marital Status | Single | + + + | Caodaism Affiliation | Unknown | + + + | Race | Unknown | + + + | Ethnic Group | Unknown | + + + Author + + + | Author | [facility] | | | and [place] | + + + | Organization | [facility] | | | and [place] | + + + | Address | Unknown | + + + | Phone | Unavailable | + + + Support + + +---------+ + | Name | Relationship | Address | Phone | + + +---------+ + | [place] | ECON | Unknown | | | Corrections | | | | + + +---------+ + Care Team Providers + +------+ + | Care Dressmaker Helper Name | Role | Phone | + [...] + + | 04/23/ | Hospital | [facility] | Fredy Yeager, | Chronic abdominal | | 2019 - | Encounter | [facility] | MD [address] | pain; Chronic | | | | CARE FLO[address] | [place] [address] | diarrhea; GERD with | | 04/24/ | | [address] | [phone] | esophagitis; Mood | | 2019 | | [place], [place] | | disorder ([facility]); | | | | [phone] | Joi Valderrama | Syncope and | | | | [phone] | MD [address] | collapse; Witnessed | | | | | [address] | seizure-like | | | | | [place] [address] | activity (HCC); | | | | | [phone] | Functional | | | | | [...] documented in this encounter Discharge Summaries Joi Valderrama MD - 04/24/2020 4:22 PM PDTFormatting of this note might be diff erent from the original. [facility] Service: Hospitalist Physician Discharge Summary Patient ID: Dylon Melissa 1980 39 y.o. Admit date: 04/23/2020 Discharge date: 04/24/2020 Admitting Physician: Fredy Yeager MD Discharge Physician: Joi Valderrama MD Consultants: Treatment Team: Zoë Mahan MD Primary Discharge Diagnoses: Witnessed seizure-like activity Secondary Discharge Diagnoses: Syncope and collapse Chronic diarrhea Chronic abdominal pain Mood disorder Resolved Problems: GERD with esophagitis HPI and Hospital Course: Dictation on: 04/24/2020 4:26 PM by: JOI VALDERRAMA [[id number]] He was admitted at [facility] on 04/21 with intractable nausea, vomiting, and d ehydration. The patient has no prior history of seizures. CT scan of the abdomen and pelvi s did not show any acute pathology. ESR was fine. He had mildly elevated ALT and has a his tory of chronic hepatitis C. Viral PCR is pending. COVID testing done at outside hospital is pending. He was treated with IV antiemetics and tested and symptoms resolved. The nuzhat ent was noted to have multiple episodes of tonic contractions and lasting about 30 seconds t o 2 minutes and no urinary or bowel incontinence. CT of the head did not show any acute fin dings. The patient was transferred to [facility] for further Neurology consultation and EEG. The patient at [facility] had a UA, which was negative. Hepatitis C and RNA is pending. EKG showed sinus tachycardia. Urine drug screen was negative. HOSPITAL COURSE: The patient admitted with possible seizure like activity. He had a EEG d one. The patient had several episodes prior to the EEG. Neurology was consulted and the pa nadine was evaluated by Dr. Mahan. Patient thought not to have true seizures, but possible pseudoseizures. MRI of the brain was also negative. recommended no further ev aluation and stable for discharge to the correction facility from neurology standpoint. Echocardiogram was showed EF of 65 percent and no valvular abnormalities have been noted. COVID testing at [facility] was negative. The patient had mildly elevated LFTs, most probably secondary to chronic hepatitis C and w ill require outpatient followup. The patient has mood disorder and will be continued on Lamictal and Effexor. Patient will will be continued on dicyclomine. The patient will be discharged to the [...] hours. Disposition: Correctional facility Follow up: Kevin Hamilton Veronica, MD [address] [place] [address] Schedule an appointment as soon as [...] (with breakfast) . aka: EFFEXOR XR Joi Valderrama MD 04/24/2020 4:23 PM PDT Code Status: Full Code Discharge took35 minutes, to include final examination, discussion of admission, and prep aration of prescriptions, instructions for ongoing care, follow up and dictation of summary. This entry has been created using Viableware Speech Recognition software and Teburu. The entry has been reviewed and there may still exist sound alike word errors.Electronica lly signed by Joi Valderrama MD at 04/24/2020 7:06 PM PDTdocumented in this encou nter Discharge Instructions Instructions Joi Valderrama MD - 04/24/2020 DIET: Diet general; ACTIVITY: [...] Care Everywhere.Coronavirus Dis ease 2019 (COVID-19): Prevention (Slovenian)Coronavirus Disease 2019 (COVID-19)- Overview ([facility])documented in this encounter Medications at Time of [...] as of this encounter Progress Notes Joi Valderrama MD - 04/24/2020 8:29 AM PDTFormatting of this note might be diff erent from the original. 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 with re current episodes of seizure-like activity with tonic posturing. Patient was admitted at [facility] on April 21 with intractable nausea, [...] of tonic posturing movements. CT of the h ead showed no acute findings. Patient transferred [...] (97.7 F) Oral 89 15 98 % 04/23/207 131/83 36.6 C (97.9 F) Oral 87 16 97 % 04/23/202056 144/89 36.6 C (97.8 F) Oral 110 [...] dry. Psychiatric: Appears depressed. DATA Recent Labs 04/24/2030 WBC 9.01 HGB 15.2 HCT 46.3 PLT 265 MCV 85.6 Recent Labs Lab 04/24/2030 NA 140 K 3.8 CL 109 CO2 24 ANIONGAP 11 BUN 10 CREA 0.70 CALCIUM 8.7 ALBUMIN 3.5* ALKPHOS 68 ALT 118* AST 43 MG 2.0 Recent Labs 04/24/20 05 GLU 89 No results for input(s): TROPONIN, BNP in the last 72 hours. Recent Labs Lab 04/24/20529 INR 1.1 No results for input(s): IRON, TIBC, PCTSAT, FERRITIN, TSH, HCFOPSMC86, FOLATE in the last 168 hours. No [...] Component Value Units Date/Time Coronavirus (COVID-19) NAAT [[id number]] Collected: 04/23/20 2249 Order Status: Completed Lab Status: Final result Updated: 04/23/20 626 Specimen: Tissue from Nasopharynx SARS-CoV-2, NAAT (COVID-19) NEGATIVE Comment: This test was developed and its performance characteristics determined by [facility]. It has not been cleared or approved by the [place] FDA. This test has been authorized by FDA under an Emergency Use Authorization (EUA). Clinicians should be advised to consider a patients signs, symptoms, history, and results of other diagnostic tests when interpreting results. Testing performed at [facility];[address] [place] [address];[place] [address] No results found for this or any [...] Disposition: Inpatient Code Status: Full Code Joi Valderrama MD 04/24/2020 8:30 AM PDT This entry has been created using Viableware Speech Recognition software and Teburu. The entry has been reviewed and there may still exist sound alike word errors. documented i n this encounter H&P Notes Fredy Yeager MD - 04/23/2020 9:48 PM PDTFormatting of this note might be different fro m the original. [facility] Service: Hospitalist Admission History & Physical [...] history of cirrhosis. Patient is inmate at [facility] institution. Patient was transferred from [facility] as a direct admit to [facility] for evaluation of recurrent episodes of [...] Procedure: COLONOSCOPY; Surgeon: Delroy Lyons MD; Location: [facility] MEDICAL PROCEDURE U NIT OTHER SURGICAL HISTORY [...] file Gets together: Not on file Attends uatsdin service: Not on file Active member of [...] on file Social History Narrative [facility]. Full code. family history includes Heart disease [...] may need con tinuous EEG monitoring at [place]. Full Code Fredy Yeager MD 04/23/2020 9:48 PM PDT documented in this encounter Procedure Notes Lee Aldridge, Neurodiagnostic Tech - 04/24/2020 7:45 AM PDTAssociated Order(s): EEGF ormatting of this note might be different from the original. [facility] Neurodiagnostic Dept [address] [place] [address] Patient: Dylon Bahena ID: [id number] : 1980 Age: 39 Gender: male Room: 7118 Physician: Leno Helton Combiner: Dawn Zavala Ref. Physician: Fredy Yeager MD [...] MD Reason for consult: Body posturing Assessment/Recommendations: [facility] Service: Neurology Date of Admission: 04/23/2020 History Obtained From: patient, chart review Subjective: Dylon Melissa is a 39 y.o. with history of colonic inertia status post subtotal colectomy with chronic abdominal pain, mood disorder, hepatitis C not treated and history of methamphe tamine use who was transferred from [facility] with recurrent episodes of pres umed seizure-like [...] no clonic movements described per nursing. Per power equipment technology instructor, there were recurrent episodes ( ~7) reported [...] Procedure: COLONOSCOPY; Surgeon: Delroy Lyons MD; Location: [facility] MEDICAL PROCEDURE U NIT OTHER SURGICAL HISTORY right side of chest wall S/p subtotal colectomy Allergy: Allergies Allergen Reactions Penicillins Anaphylaxis Ciprofloxacin Rash Rash Fish Allergy Unknown Medications: Home medications: Prior to Admission medications Medication Sig Start Date End Date Taking? Authorizing Provider dicyclomine (BENTYL) 20 MG tablet Take 20 mg by mouth every 6 hours. Yes Historical Norberto rehman MD lamoTRIgine (LAMICTAL) 150 MG tablet Take 300 mg by mouth nightly . Yes Historical Cameron pastrana MD venlafaxine (EFFEXOR XR) 150 mg 24 hr tablet Take 225 mg by mouth daily (with breakfast) . Yes Historical Provider, Scheduled Meds: enoxaparin 40 mg Subcutaneous Q24H [...] file Gets together: Not on file Attends uatsdin service: Not on file Active member of [...] on file Social History Narrative Inmate at [facility]. Full code.children 6. No falls. Objective: Vitals: [...] on potiental changes in discharge plan) Notes: [facility] [address], [place] [address] [facility] number for nurse to nurse report is [phone] / o Chest pain patients that have ruled out go directly back to their correctional facility o If you have any questions or concerns, please call the [facility] Director Clinical Data Electronically signed: BRENDA BABCOCK RN 04/24/2020 10:34 AM PDT lan of Care - Uche Jorge RN - 04/24/2020 8:09 AM [id number]: Pt stable and pleasant on assessment 0932:Orders placed: - general diet AVS and COVID teaching given to guards and pt, all questions answered. IV removed. Uche Brady RN lan of Care Tiffanie Chandra RN - 04/24/2020 6:14 AM PDTVSS throughout [...] Tech 04/24/2020 7:45 AM | | | [facility] Neurodiagnostic Dept [address] [facility] | | | [place] [address] Patient: Dylon Bahena ID: [id number] : | | | 1980 Age: 39 Gender: male Room: 7118 Physician: Danie | | | Leno Combiner: Dawn Zavala Ref. Physician: Fredy Yeager MD [...] | | | | | performed at [facility] | | | | | | [facility];[place], [place] | | | | | | [address] | | | | + + + + + + + + | Specimen | + + | Blood | + + + + + + + | Performing | Address | City/State/Zipcode | Phone Number | | Organization | | | | + + + + + | [facility] | [address] | [place] [address] | [phone] | + + + + + Magnesium (04/24/2020 5:30 AM PDT) + + + + + + | Component | Value | Ref Range | Performed | Pathologist | | | | | At | Signature | + + + + + + | Magnesium | 2.0Comment: Testing | 1.7 - 2.4 mg/dL | [facility] | | | | performed at [facility];[address] | | LABORATORY | | | | [address];[place] | | | | | | [address] | | | | + + + + + + + + | Specimen | + + | Blood | + + + + + + + | Performing | Address | City/State/Zipcode | Phone Number | | Organization | | | | + + + + + | [facility] | [address] | [place] [address] | [phone] | + + + + + CBC [...] | | | Absolute | performed at [facility], [address] | [address] | LABORATORY | | | | [place], | | | | | | [place] [address] | | | | + + + + + + + + | Specimen | + + | Blood | + + + + + + + | Performing | Address | City/State/Zipcode | Phone Number | | Organization | | | | + + + + + | [facility] | [address] | [place] [address] | [phone] | + + + + + Comprehensive [...] | >60Comment: GFR <60: | >60 | [facility] | | | GFR | CHRONIC KIDNEY [...] | | | | | | MDRD IDMI traceable | | | | | | equation.Testing | | | | | | performed at [facility], [address] | | | | | | [facility], | | | | | | [place] [address] | | | | + + + + + + + + | Specimen | + + | Blood | + + + + + + + | Performing | Address | City/State/Zipcode | Phone Number | | Organization | | | | + + + + + | [facility] | [address] | [place] [address] | [phone] | + + + + + MRI [...] Procedure Note | + + | Alphonso, [id number] - 04/24/2020 5:36 AM PDT | | [...] SARS-CoV-2, | NEGATIVEComment: This | NEG | [facility] | | | NAAT | [...] | | | | | performed at [facility];[address] | | | | | | [address] [facility];[place], [place] | | | | | | [address] | | | | + + + + + + + + | Specimen | + + | Tissue - Entire | | nasopharynx (body | | structure) | + + + + + + + | Performing | Address | City/State/Zipcode | Phone Number | | Organization | | | | + + + + + | [facility] | [address] | [place] [address] | [phone] | + + + + + documented [...]
--- OUTSIDE RECORDS SUMMARY | ~2020-04-24 | XMS | Encounter Summary ---
Demographics + + + | Address | [address] | | | [place] [address] | + + + | Home Phone | | + + + | Preferred Language | Unknown | + + + | Marital Status | Single | + + + | Confucianist Affiliation | Unknown | + + + | Race | Unknown | + + + | Ethnic Group | Unknown | + + + Author + + + | Author | [facility] | | | and [place] | + + + | Organization | [facility] | | | and [place] | + + + | Address | Unknown | + + + | Phone | Unavailable | + + + Support + + +---------+ + | Name | Relationship | Address | Phone | + + +---------+ + | [place] | ECON | Unknown | | | Corrections | | | | + + +---------+ + Care Team Providers + +------+ + | Care Management Recruiter Name | Role | Phone | + [...] Radiology | Diagnoses | Ailbrendani, | [facility] | | Review | | | Lower | Delroy Miller MD | REGIONAL | | | | | abdominal | [address] | MEDICAL | | | | | pain | [address] | [address] | | | | | Procedures | [address] | | | | | CT Abdomen | [place], [place] | [place], [place] | | | | | Pelvis w | [address] | [address] | | | | | Contrast | Phone: | Phone: | | | | | | [phone] | [phone] | | | | | | Fax: | Fax: | | | | | | [phone] | [phone] | + +--------+ + + + + [...] + + | 11/24/ | Hospital | [facility] | Delroy Lyons, | Diarrhea, | | 2020 | Encounter | [facility] | [address] | unspecified type; | | | | INTRA OP [address] | [address] | Lower abdominal pain | | | | BLVD [place], [place] | [place] [address] | | | | | [address] | [phone] | | | | | [phone] | | | +--------+ + + + [...] +---------+ + + | lamoTRIgine | Take 300 mg by mouth | | 0 | | | | (LAMICTAL) 150 MG | nightly . | | | | | | tablet | | | | | | + + + +---------+ + + | venlafaxine | Take 225 mg [...] more runny stool and fo rmed stool. Acoustic Engineer needed: no Last colonoscopy: yes Rectal Bleeding:yes [...] review and double click "GI procedure note" Delroy Lyons MD 11/24/2019 -C Instructions Pr ovation [...] | + +--------+ + + + | MN COLONOSCOPY FLX | Routin | 11/24/2019 | [...] component was performed | | | by [facility], [address] [place] [address] (Medical | | | Director: Margarita Suarez MD; CLIA# [id number]). Professional | | | [facility] | | | [address] (Medical | | | Director: Lee Hathaway M.D.; CLIA#: [id number]). Diagnostician: | | | Margarita ODELLathologistElectronically Signed [...] | |The technical component was performed by [facility], [address] [place] [address] (Fence Rider: Margarita Suarez MD; CLIA# [id number]). Professional interpretation was performed by | | |[place] [address] (Fence Rider: Lee Hathaway M.D.; CLIA#: [id number]). | | | | | |Diagnostician: Margarita [...] Performed At | + + + | [facility] | [facility] | | [facility] | PROVATION | | CenterGastroenterology | | | Patient Name: Dylon Melissa | | | Procedure Date: 11/24/2019 8:15 AMMRN: [id number] | | | of : 1980 | [...] | | 8:15 AMNumber of Addenda: 0 [facility] | | | | | | | | |Delroy Lyons, | | |11/24/2019 9:08:36 AM | | |This report has been signed electronically. | | | | | |Note Initiated On: 11/24/2019 8:15 AM | | |Number of Addenda: 0 | | | | | | [facility] | | + + + + +---------+ + + | Performing | Address | City/State/[facility] Centercode | Phone Number | | Organization [...]
--- OUTSIDE RECORDS SUMMARY | ~2020-04-24 | XMS | Encounter Summary ---
Demographics + + + | Address | [address] | | | [place] [address] | + + + | Home Phone | | + + + | Preferred Language | Unknown | + + + | Marital Status | Single | + + + | Hindu Affiliation | Unknown | + + + | Race | Unknown | + + + | Ethnic Group | Unknown | + + + Author + + + | Author | [facility] | | | and [place] | + + + | Organization | [facility] | | | and [place] | + + + | Address | Unknown | + + + | Phone | Unavailable | + + + Support + + +---------+ + | Name | Relationship | Address | Phone | + + +---------+ + | [place] | ECON | Unknown | | | Corrections | | | | + + +---------+ + Care Team Providers + +------+ + | Care Unit Tender Name | Role | Phone | + +------+ + | Kevin Martin MD | PCP | | + +------+ + Encounter Details +--------+ + + + + | Date | Type | Department | Care Team | Description | +--------+ + + + + | 06/22/ | Orders Only | [facility] | Juanpablo Ferrara | | | 2018 | | GENERAL SURGERY [address] | [address] | | | | | [address] | | | | | | [place] | | | | | | [address] | | | | | | [phone] | | | +--------+ + + + [...]
--- OUTSIDE RECORDS SUMMARY | ~2020-04-24 | XMS | Encounter Summary ---
Demographics + + + | Address | [address] | | | [place] [address] | + + + | Home Phone | | + + + | Preferred Language | Unknown | + + + | Marital Status | Single | + + + | Yarsanism Affiliation | Unknown | + + + | Race | Unknown | + + + | Ethnic Group | Unknown | + + + Author + + + | Author | [facility] | | | and [place] | + + + | Organization | [facility] | | | and [place] | + + + | Address | Unknown | + + + | Phone | Unavailable | + + + Support + + +---------+ + | Name | Relationship | Address | Phone | + + +---------+ + | [place] | ECON | Unknown | | | Corrections | | | | + + +---------+ + Care Team Providers + +------+ + | Care Filler Shredding Machine Loader Name | Role | Phone | + +------+ + | Kevin Martin MD | PCP | | + +------+ + Encounter Details +--------+ + + + + | Date | Type | Department | Care Team | Description | +--------+ + + + + | 10/06/ | Orders Only | [facility] | Juanpablo Ferrara | | | 2019 | | GENERAL SURGERY [address] | [address] | | | | | [address] | | | | | | [place] | | | | | | [address] | | | | | | [phone] | | | +--------+ + + + [...]
--- OUTSIDE RECORDS SUMMARY | ~2020-04-24 | XMS | Encounter Summary ---
Demographics + + + | Address | [address] | | | [place] [address] | + + + | Home Phone | | + + + | Preferred Language | Unknown | + + + | Marital Status | Single | + + + | Synagogue Affiliation | Unknown | + + + | Race | Unknown | + + + | Ethnic Group | Unknown | + + + Author + + + | Author | [facility] | | | and [place] | + + + | Organization | [facility] | [...] Team Providers + +------+ + | Care Administration Clerk Name | Role | Phone | + [...] + + | 06/18/ | Telephone | [facility] | Delroy Lyons, | Procedure | | 2018 | | GENERAL SURGERY [address] | MD [address] | | | | | [address] | [address] | | | | | [place], [place] | [place] [address] | | | | | [address] | [phone] | | | | | [phone] | | | +--------+ + + + [...] 9:23 AM PDTRochelleft message bandar Maloney at [place] to contact our office to schedule patients surgery. documented in this encounter Plan of Treatment Not on filedocumented as of this encounter Visit Diagnoses Not on filedocumented in this encounter"
--- OUTSIDE RECORDS SUMMARY | ~2020-04-24 | XMS | Encounter Summary ---
Demographics + + + | Address | [address] | | | [place] [address] | + + + | Home Phone | | + + + | Preferred Language | Unknown | + + + | Marital Status | Single | + + + | Cheondoism Affiliation | Unknown | + + + | Race | Unknown | + + + | Ethnic Group | Unknown | + + + Author + + + | Author | [facility] | | | and [place] | + + + | Organization | [facility] | | | and [place] | + + + | Address | Unknown | + + + | Phone | Unavailable | + + + Support + + +---------+ + | Name | Relationship | Address | Phone | + + +---------+ + | [place] | ECON | Unknown | | | Corrections | | | | + + +---------+ + Care Team Providers + +------+ + | Care Washateria Attendant Name | Role | Phone | + [...] | | | | [place] | [phone] | | | | | [address] | | | | | | [phone] | | | +--------+ + + + [...]
--- OUTSIDE RECORDS SUMMARY | ~2020-04-24 | XMS | Encounter Summary ---
Demographics + + + | Address | [address] | | | [place] [address] | + + + | Home Phone | | + + + | Preferred Language | Unknown | + + + | Marital Status | Single | + + + | Confucianist Affiliation | Unknown | + + + | Race | Unknown | + + + | Ethnic Group | Unknown | + + + Author + + + | Author | [facility] | | | and [place] | + + + | Organization | [facility] | | | and [...] Team Providers + +------+ + | Care Malter Operator Name | Role | Phone | + +------+ + | Kevin Martin MD | PCP | | + +------+ + Encounter Details +--------+ + + + + | Date | Type | Department | Care Team | Description | +--------+ + + + + | 11/24/ | Anesthesia | [facility] | Amrita Ryder, | | | 2020 | Event | [facility] | [address] | | | | | INTRA [address] | [place] [address] | | | | | BLVD [place], [place] | [phone] | | | | | [address] | | | | | | [phone] | | | +--------+ + + + [...] EVALUATION Dylon Melissa 39 y.o. male 1980 [id number] Procedure(s) COLONOSCOPY (N/A Rectum) Cooperates? Yes Mental [...] by Amrita Ryder MD 11/24/2019 8:[address] [facility] nesthesia Preprocedure Evaluation - Amrita Ryder MD - 11/23/2019 6:36 PM PST ANESTHESIA PREANESTHESIA EVALUATION Dylon Melissa 39 y.o. male 1980 [id number] Procedure(s): COLONOSCOPY (N/A Rectum) Medical,anesthesia, drug, allergy [...] NOTE Dylonyajaira Youngtt 39 y.o. male 1980 [id number] COLONOSCOPY (N/A Rectum) HANDOFF NOTE Handoff Protocol [...] team. Amrita Ryder MD 11/24/2019 8:[address] [facility] documented in this encounter Plan of Treatment [...]
--- OUTSIDE RECORDS SUMMARY | ~2020-04-24 | XMS | Encounter Summary ---
Demographics + + + | Address | [address] | | | [place] [address] | + + + | Home Phone | | + + + | Preferred Language | Unknown | + + + | Marital Status | Single | + + + | Baptist Affiliation | Unknown | + + + | Race | Unknown | + + + | Ethnic Group | Unknown | + + + Author + + + | Author | [facility] | | | and [place] | + + + | Organization | [facility] | | | and [place] [...] Team Providers + +------+ + | Care Top Lift And Automatic Window Repairer Name | Role | Phone | + [...] + + | 07/27/ | Telephone | [facility] | Juanpablo Ferrara | Other (prep) | | 2018 | | GENERAL SURGERY [address] | B, RN | | | | | [address] | | | | | | [place] | | | | | | [address] | | | | | | [phone] | | | +--------+ + + + [...]
--- OUTSIDE RECORDS SUMMARY | ~2020-04-24 | XMS | Encounter Summary ---
Demographics + + + | Address | [address] | | | [place] [address] | + + + | Home Phone | | + + + | Preferred Language | Unknown | + + + | Marital Status | Single | + + + | Restoration Affiliation | Unknown | + + + | Race | Unknown | + + + | Ethnic Group | Unknown | + + + Author + + + | Author | [facility] | | | and [place] | + + + | Organization | [facility] | | | and [place] | + + + | Address | Unknown | + + + | Phone | Unavailable | + + + Support + + +---------+ + | Name | Relationship | Address | Phone | + + +---------+ + | [place] | ECON | Unknown | | | Corrections | | | | + + +---------+ + Care Team Providers + +------+ + | Care Chief Librarian Extension Department Name | Role | Phone | + [...] + + | 09/15/ | Telephone | [facility] | Delroy Lyons, | Procedure | | 2019 | | GENERAL SURGERY [address] | MD [address] | | | | | [address] | [address] | | | | | [place], [place] | [place] [address] | | | | | [address] | [phone] | | | | | [phone] | | | +--------+ + + + [...] - 09/16/2019 8:36 AM PSTContacted Jean[facility] at [facility] a nd she stated that she needing to schedule the patients scope with Dr Lyons. Offered and Jeanette accepted on behalf of the patient. Jeanette requested the patient be to make transportation arrangements. No further questions or concerns. elephone Encounter - Camejoantonieta OseiBess ojeda - 09/15/2019 3:23 PM PSTBree- [facility] and would like a call back. Additional Call Details: Calling to schedule colonoscopy. Please call her back at [phone] If this is a symptom based call, was patient offered triage? Not Applicable If this is a symptom based call and you were unable to immediately transfer the call to a bruce yap behavioral science chair was caller made aware that if at any time he feels it is an emergency they erin uld call 911 or go to the nearest emergency room? not applicable documented in this encounter Plan of Treatment Not on filedocumented as of this encounter Visit Diagnoses Not on filedocumented in this encounter"
--- OUTSIDE RECORDS SUMMARY | ~2020-04-24 | XMS | Encounter Summary ---
Demographics + + + | Address | [address] | | | [place] [address] | + + + | Home Phone | | + + + | Preferred Language | Unknown | + + + | Marital Status | Single | + + + | Protestant Affiliation | Unknown | + + + | Race | Unknown | + + + | Ethnic Group | Unknown | + + + Author + + + | Author | [facility] | | | and [place] | + + + | Organization | [facility] | | | and [place] | + + + | Address | Unknown | + + + | Phone | Unavailable | + + + Support + + +---------+ + | Name | Relationship | Address | Phone | + + +---------+ + | [place] | ECON | Unknown | | | Corrections | | | | + + +---------+ + Care Team Providers + +------+ + | Care Systems Requirements Planner Name | Role | Phone | + [...] + + | 10/11/ | Telephone | [facility] | Delroy Lyons, | Procedure | | 2020 | | GENERAL SURGERY [address] | MD [address] | (Reschedule 10/20/19 | | | | [address] | [address] | Procedure) | | | | [place], [place] | [place] [address] | | | | | [address] | [phone] | | | | | [phone] | | | +--------+ + + + [...] Pamela Brenner - 10/11/2019 3:01 PM PSTKim- [facility], is calling regard ing Procedure (Reschedule 10/20/19 Procedure) and would like a call back. Additional Call Details: Calling to reschedule patient's 10/20/19 colonoscopy. Please call back at [phone]. If this is a symptom based call, was patient offered triage? Not Applicable If this is a symptom based call and you were unable to immediately transfer the call to a p roviori extension course counselor was caller made aware that if at any time he feels it is an emergency they erin uld call 911 or go to the nearest emergency room? not applicable documented in this encounter Plan of Treatment Not on filedocumented as of this encounter Visit Diagnoses Not on filedocumented in this encounter"
--- OUTSIDE RECORDS SUMMARY | ~2020-04-24 | XMS | Encounter Summary ---
Demographics + + + | Address | [address] | | | [place] [address] | + + + | Home Phone | | + + + | Preferred Language | Unknown | + + + | Marital Status | Single | + + + | Orthodoxy Affiliation | Unknown | + + + | Race | Unknown | + + + | Ethnic Group | Unknown | + + + Author + + + | Author | [facility] | | | and [place] | + + + | Organization | [facility] | | | and [place] | + + + | Address | Unknown | + + + | Phone | Unavailable | + + + Support + + +---------+ + | Name | Relationship | Address | Phone | + + +---------+ + | [place] | ECON | Unknown | | | Corrections | | | | + + +---------+ + Care Team Providers + +------+ + | Care Jumbo Operator Name | Role | Phone | [...] + + | 11/22/ | Telephone | [facility] | Juanpablo Ferrara | Other (Prep) | | 2020 | | GENERAL SURGERY [address] | B, RN | | | | | [address] | | | | | | [place] | | | | | | [address] | | | | | | [phone] | | | +--------+ + + + [...]
--- OUTSIDE RECORDS SUMMARY | ~2020-04-24 | XMS | Encounter Summary ---
Demographics + + + | Address | [address] | | | [place] [address] | + + + | Home Phone | | + + + | Preferred Language | Unknown | + + + | Marital Status | Single | + + + | Sabianist Affiliation | Unknown | + + + | Race | Unknown | + + + | Ethnic Group | Unknown | + + + Author + + + | Author | [facility] | | | and [place] | + + + | Organization | [facility] | | | and [place] | + + + | Address | Unknown | + + + | Phone | Unavailable | + + + Support + + +---------+ + | Name | Relationship | Address | Phone | + + +---------+ + | [place] | ECON | Unknown | | | Corrections | | | | + + +---------+ + Care Team Providers + +------+ + | Care Ladle Filler Name | Role | Phone | + +------+ + | Kevin Martin MD | PCP | | + +------+ + Encounter Details +--------+ + + + + | Date | Type | Department | Care Team | Description | +--------+ + + + + | 09/16/ | Orders Only | [facility] | Alise, | Diarrhea, | | 2019 | | GENERAL SURGERY [address] | [address] | unspecified type | | | | [address] | [address] | (Primary Dx) | | | | [place], [place] | [place] [address] | | | | | [address] | [phone] | | | | | [phone] | | | +--------+ + + + [...]
--- OUTSIDE RECORDS SUMMARY | ~2020-04-24 | XMS | Encounter Summary ---
Demographics + + + | Address | [address] | | | [place] [address] | + + + | Home Phone | | + + + | Preferred Language | Unknown | + + + | Marital Status | Single | + + + | Pentecostal Affiliation | Unknown | + + + | Race | Unknown | + + + | Ethnic Group | Unknown | + + + Author + + + | Author | [facility] | | | and [place] | + + + | Organization | [facility] | | | and [place] [...] Team Providers + +------+ + | Care Flake Drier Name | Role | Phone | + [...] Radiology | Diagnoses | Ailbrendani, | [facility] | | Review | | | Lower | Delroy Miller MD | REGIONAL | | | | | abdominal | [address] | MEDICAL | | | | | pain | [address] | [address] | | | | | Procedures | [address] | [address] | | | | | [place] Abdomen | [place], [place] | [place] | | | | | Pelvis w | [address] | [address] | | | | | Contrast | Phone: | Phone: | | | | | | [phone] | [phone] | | | | | | Fax: | Fax: | | | | | | [phone] | [phone] | + +--------+ + + + + Encounter Details +--------+ + + + + | Date | Type | Department | Care Team | Description | +--------+ + + + + | 11/24/ | Orders Only | [facility] | Delroy Lyons, | Lower abdominal pain | | 2020 | | GENERAL SURGERY [address] | [address] | (Primary Dx) | | | | [address] | [address] | | | | | [place], [place] | [place] [address] | | | | | [address] | [phone] | | | | | [phone] | | | +--------+ + + + [...]
--- OUTSIDE RECORDS SUMMARY | ~2020-04-24 | XMS | Encounter Summary ---
Demographics + + + | Address | [address] | | | [place] [address] | + + + | Home Phone | | + + + | Preferred Language | Unknown | + + + | Marital Status | Single | + + + | Oriental Orthodox Affiliation | Unknown | + + + | Race | Unknown | + + + | Ethnic Group | Unknown | + + + Author + + + | Author | [facility] | | | and [place] | + + + | Organization | [facility] | | | and [place] | [...] Team Providers + +------+ + | Care Spiral Weaver Name | Role | Phone | + [...] + + | 11/24/ | Surgery | [facility] | Delroy Lyons, | COLONOSCOPY | | 2020 | | [facility] | [address] | | | | | INTRA [address] | [address] | | | | | BLVD [place], [place] | [place] [address] | | | | | [address] | [phone] | | | | | [phone] | | | +--------+---------+ + + + [...] more runny stool and fo rmed stool. Relief Manager needed: no Last colonoscopy: yes Rectal [...] + +--------+ + + + | LA COLONOSCOPY FLX | Routin | 11/24/2019 | [...] component was performed | | | by [facility], [address] [place] [address] (Medical | | | Director: Margarita Suarez MD; CLIA# [id number]). Professional | | | interpretation [facility] | | | [address] (Medical | | | Director: Lee Hathaway M.D.; CLIA#: [id number]). Diagnostician: | | | Margarita Suarez MDPathologistElectronically [...] | |The technical component was performed by [facility], [address] [place] [address] (Circuit Walker: Margarita Suarez MD; CLIA# [id number]). Professional interpretation was performed by | | |[facility] (Circuit Walker: Lee Hathaway M.D.; CLIA#: [id number]). | | | | | |Diagnostician: Margarita [...] Performed At | + + + | Merged With [facility] | [facility] | | [facility] | PROVATION | | CenterGastroenterology | | | Patient Name: Dylon Melissa | | | Procedure Date: 11/24/2019 8:15 AMMRN: [id number] | | | of : 1980 | [...] | | 8:15 AMNumber of Addenda: 0 [facility] | | | | | | | | |Delroy Lyons, | | |11/24/2019 9:08:36 AM | | |This report has been signed electronically. | | | | | |Note Initiated On: 11/24/2019 8:15 AM | | |Number of Addenda: 0 | | | | | | [facility] | | + + + + +---------+ + + | Performing | Address | City/State[facility] | Phone Number | | Organization [...]
--- OUTSIDE RECORDS SUMMARY | ~2020-04-24 | XMS | Encounter Summary ---
Demographics + + + | Address | [address] | | | [place] [address] | + + + | Home Phone | | + + + | Preferred Language | Unknown | + + + | Marital Status | Single | + + + | Pentecostalism Affiliation | Unknown | + + + | Race | Unknown | + + + | Ethnic Group | Unknown | + + + Author + + + | Author | [facility] | | | and [place] | + + + | Organization | [facility] | | | and [place] | + + + | Address | Unknown | + + + | Phone | Unavailable | + + + Support + + +---------+ + | Name | Relationship | Address | Phone | + + +---------+ + | [place] | ECON | Unknown | | | Corrections | | | | + + +---------+ + Care Team Providers + +------+ + | Care Vamp Presser Name | Role | Phone | + +------+ + | Kevin Nath MD | PCP | | + +------+ + Encounter Details +--------+---------+ + + + | Date | Type | Department | Care Team | Description | +--------+---------+ + + + | 06/17/ | Office | [facility] | Delroy Lyons, | Diarrhea, | | 2019 | Visit | GENERAL SURGERY [address] | [address] | unspecified type | | | | [address] | [address] | (Primary Dx) | | | | [place], [place] | [place] [address] | | | | | [address] | [phone] | | | | | [phone] | | | +--------+---------+ + + + [...] more runny stool and fo rmed stool. Lemon Grower needed: no Last colonoscopy: yes Rectal Bleeding:yes [...]
--- OUTSIDE RECORDS SUMMARY | ~2020-04-24 | XMS | Encounter Summary ---
Demographics + + + | Address | [address] | | | [place] [address] | + + + | Home Phone [...] | Organization | [facility] | | [...] Team Providers + +------+ + | Care Emergency Vehicle Technician Name | Role | Phone | + [...] + + | 10/12/ | Telephone | [facility] | Delroy Lyons, | Procedure | | 2020 | | GENERAL SURGERY [address] | MD [address] | (rescheduled | | | | [address] | [address] | 10/20/19) | | | | [place], [place] | [place] [address] | | | | | [address] | [phone] | | | | | [phone] | | | +--------+ + + + [...] Trudy Sloan 10/12/2019 9:26 AM Milton from [facility] contacted our office and requested [...]
--- OUTSIDE RECORDS SUMMARY | ~2020-04-24 | XMS | Encounter Summary ---
Demographics + + + | Address | [address] | | | [place] [address] | + + + | Home Phone | | + + + | Preferred Language | Unknown | + + + | Marital Status | Single | + + + | Uatsdin Affiliation | Unknown | + + + | Race | Unknown | + + + | Ethnic Group | Unknown | + + + Author + + + | Author | [facility] | | | and [place] | + + + | Organization | [facility] | | | and [...] Team Providers + +------+ + | Care Transcription Typist Name | Role | Phone | + [...] + + | 07/27/ | Telephone | [facility] | Delroy Lyons, | Other (surgery) | | 2019 | | GENERAL SURGERY [address] | MD [address] | | | | | [address] | [address] | | | | | [place], [place] | [place] [address] | | | | | [address] | [phone] | | | | | [phone] | | | +--------+ + + + [...] 07/27/2019 3:51 PM PDTSpoke with Amara at [facility] ([facility] for [facility]) to cancel scope with Dr Noé oleary. Patient does not want to reschedule. No further questions or concerns. elephone Encounter - [place], Checo Raymond - 07/27/2019 3:39 PM [facility] Other (surgery) and would like a call back. Additional Call Details: Called to cancel 07/28/19 appointment due to patient refusal. No callback needed. If this is a symptom based call, was patient offered triage? Not Applicable If this is a symptom based call and you were unable to immediately transfer the call to a bruce yap professor of philosophy was caller made aware that if at any time he feels it is an emergency they erin uld call 911 or go to the nearest emergency room? not applicable documented in this encounter Plan of Treatment Not on filedocumented as of this encounter Visit Diagnoses Not on filedocumented in this encounter"
[~2020-04-24 23:39] MED LIST changes: +DICYCLOMINE HCL20 MG PO; +EFFEXOR XR150 MG PO; +LAMICTAL150 MG PO
--- OUTSIDE RECORDS SUMMARY | 2020-04-24 23:42 | XMS ---
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 Yarely has no Care Guidelines for this patient. E.DHumberto VISIT COUNT (12 MO.) 2 KHANH Elaine TOTAL 2 NOTE: Visits indicate total known visits. ED/C VISIT TRACKING (12 MO.) 04/24/2020 23:39 [facility] [place] TYPE: Emergency COMPLAINT: - SIEZURE 04/21/2020 20:34 [facility] [place] TYPE: Emergency COMPLAINT: - MULTIPLE COMPLAINTS INPATIENT VISIT TRACKING (12 MO.) 04/23/2020 20:53 [facility] Maia TOVAR TYPE: Neurology DIAGNOSES: - Gastro-esophageal reflux disease with esophagitis - Other chronic pain - Unspecified mood [affective] disorder - Seizure - Conversion disorder with motor symptom or deficit - Unspecified convulsions - Unspecified abdominal pain - Syncope and collapse - Noninfective gastroenteritis and colitis, unspecified 04/21/2020 20:35 [facility] [place] TYPE: Observation COMPLAINT: - VOMITING,URINARY RETENTION,SYNCOPE [email or web address]
== END 2020-04-25 00:55 | disposition home or self-care (01) ==
LOC: ED 23:39
DX: F44.5 Conversion disorder with seizures or convulsions (principal); Z88.0 Allergy status to penicillin; Z88.1 Allergy status to other antibiotic agents; Z79.899 Other long term (current) drug therapy
CPT/HCPCS: 99284

== ENCOUNTER 2020-05-03 20:40 | Emergency (ER) | payer OTHER ==
[~2020-05-03] VITALS: Ht 188 cm; Wt 89.5 kg
--- OUTSIDE RECORDS SUMMARY | ~2020-05-03 | XMS | Encounter Summary ---
Demographics + + + | Address | [address] | | | [place] [address] | + + + | Home Phone | | + + + | Preferred Language | Unknown | + + + | Marital Status | Single | + + + | Anabaptism Affiliation | Unknown | + + + | Race | Unknown | + + + | Ethnic Group | Unknown | + + + Author + + + | Author | [facility] | | | and [place] | + + + | Organization | [facility] | | | and [place] | + + + | Address | Unknown | + + + | Phone | Unavailable | + + + Support + + +---------+ + | Name | Relationship | Address | Phone | + + +---------+ + | [place] | ECON | Unknown | | | Corrections | | | | + + +---------+ + Care Team Providers + +------+ + | Care Director Facilities Maintenance Name | Role | Phone | + +------+ + | Kevin Martin MD | PCP | | + +------+ + Encounter Details +--------+ + + + + | Date | Type | Department | Care Team | Description | +--------+ + + + + | 06/22/ | Orders Only | [facility] | Juanpablo Ferrara | | | 2018 | | GENERAL SURGERY [address] | [address] | | | | | [address] | | | | | | [place] | | | | | | [address] | | | | | | [phone] | | | +--------+ + + + [...] filedocumented as of this encounter Visit Diagnoses Not on filedocumented in this encounter"
--- OUTSIDE RECORDS SUMMARY | ~2020-05-03 | XMS | Encounter Summary ---
Demographics + + + | Address | [address] | | | [place] [address] | + + + | Home Phone | | + + + | Preferred Language | Unknown | + + + | Marital Status | Single | + + + | Restoration Affiliation | Unknown | + + + | Race | Unknown | + + + | Ethnic Group | Unknown | + + + Author + + + | Author | [facility] | | | and [place] | + + + | Organization | [facility] | | | and [place] | + + + | Address | Unknown | + + + | Phone | Unavailable | + + + Support + + +---------+ + | Name | Relationship | Address | Phone | + + +---------+ + | [place] | ECON | Unknown | | | Corrections | | | | + + +---------+ + Care Team Providers + +------+ + | Care Scaffold Setter Name | Role | Phone | + +------+ + | Kevin Martin MD | PCP | | + +------+ + Reason for Visit Auth/Cert +--------+--------+ + + + + | Status | Reason | Specialty | Diagnoses / | Referred By | Referred To | | | | | Procedures | Contact | Contact | +--------+--------+ + + + + | | | | Diagnoses | | | | | | | Seizure | | | +--------+--------+ + + + + Encounter Details +--------+ + + + + | Date | Type | Department | Care Team | Description | +--------+ + + + + | 04/23/ | Hospital | [facility] | Fredy Yeager, | Chronic abdominal | | 2019 - | Encounter | [facility] | MD [address] | pain; Chronic | | | | [address] | [place] [address] | diarrhea; GERD with | | 04/24/ | | [address] | [phone] | esophagitis; Mood | | 2019 | | [place], [place] | | disorder ([facility]); | | | | [phone] | Joi Adams | Syncope and | | | | [phone] | [address] | collapse; Witnessed | | | | | [address] | seizure-like | | | | | [place] [address] | activity (HCC); | | | | | [phone] | Functional | | | | | | neurological symptom | | | | | | disorder with | | | | | | abnormal movement | +--------+ + + + + Social [...] | | | + +---+---+---+ + + | Comments: quit 2015 | + + + + +---------+ + | Alcohol Use [...] + + + | Blood Pressure | 124/88 | 04/24/2020 11:01 AM | | | | | PDT | | + + + + + | Pulse | 96 | 04/24/2020 11:01 AM | | | | | PDT | | + + + + + | Temperature | 36.6 C (97.8 F) | 04/24/2020 11:01 AM | | | | | PDT | | + + + + + | Respiratory Rate | 16 | 04/24/2020 11:01 AM | | | | | PDT | | + + + + + | Oxygen Saturation | 97% | 04/24/2020 11:01 AM | | | | | PDT | | + + + + + | Inhaled Oxygen | - | - | | | Concentration | | | | + + + + + | Weight | 89.7 kg (197 lb 12 | 04/23/2020 8:57 PM | | | | oz) | PDT | | + + + + + | Height | 188 cm (6' 2") | 04/23/2020 8:57 PM | | | | | PDT | | + + + + + | Body Mass Index | 25.39 | 04/23/2020 8:57 PM | | | | | PDT | | + + + + + documented in this encounter Discharge Summaries Joi Adams MD - 04/24/2020 4:22 PM PDTFormatting of this note might be diff erent from the original. [facility] Service: Hospitalist Physician Discharge Summary Patient ID: Dylon Melissa [id number] 39 y.o. 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 He was admitted at [facility] on 04/21 with intractable nausea, vomiting, and d ehydration. The patient has no prior history of seizures. CT scan of the abdomen and pelvi s did not show any acute pathology. ESR was noraml. He had mildly elevated ALT and has a h istory of chronic hepatitis C. Viral PCR is pending. [facility]. He was treated with IV antiemetics and tested and symptoms resolved. The jenifer mccoy was noted to have multiple episodes of tonic contractions lasting about 30 seconds to 2 minutes and no urinary or bowel incontinence. CT of the head did not show any acute findi ngs. The patient was transferred to [facility] for further Neurology co nsultation and EEG. The patient at [facility] had a UA, which was negative. Hepatitis C and RNA is pending. EKG showed sinus tachycardia. Urine drug screen was negative. HOSPITAL COURSE: The patient admitted with possible seizure like activity. He had a EEG d one. The patient had several episodes prior to the EEG. Neurology was consulted and the jenifer mccoy was evaluated by Dr. Mahan. Patient thought not to have true seizures, but possible pseudoseizures. MRI of the brain was also negative. recommended no further ev aluation and stable for discharge to the correction facility from neurology standpoint. Echocardiogram was showed EF of 65 percent and no valvular abnormalities have been noted. COVID testing at [facility] was negative. COVID testing at outside hospital is pending. The patient had mildly elevated LFTs, most probably secondary to chronic hepatitis C and w ill require outpatient followup. The patient has mood disorder and will be continued on Lamictal and Effexor. Patient will will be continued on dicyclomine for chronic abdominal pain. The patient will be discharged to the correctional facility with outpatient followup. Discharged Condition: Stable for discharge as stated above. Significant Diagnostic Studies: Mri Brain W Wo Contrast Result Date: 04/24/2020 MRI BRAIN WITHOUT AND WITH CONTRAST CLINICAL INFORMATION: Seizures. COMPARISON: Noncontrast CT head 04/23/2020. PROCEDURE: Sagittal T1, axial FLAIR, axial T2, axial T1, axial gradient susceptibility, thin section temporal lobe coronal T2 FLAIR, axial 3D volume, axial T1 enhan srinivas and DWI sequences. Contrast: 9 ml Gadavist IV. FINDINGS: Brain: No intracranial hemorrha ge. No midline shift, pathologic enhancement, or mass lesion. No cerebral edema, restricted diffusion, or evidence of acute infarct. No evidence of structural/morphologic brain abnorma lities. Corpus callosum, deep brain nuclei, cerebral cortices, mesial temporal lobes/hippoca mpi, brainstem, and cervicomedullary junction are normal. Ventricles and extra-axial fluid s paces: Normal. Sella, suprasellar cistern, and orbits: Normal. Major vascular flow voids: No rmal. Calvarium and extracranial soft tissues: Normal. Paranasal sinuses and mastoid air jer ls: Normal. Normal MRI brain. Final Report Signed by: Randal Singer Jace Sign Date/Time: 04/24/2020 5:3 3 AM Discharge Vitals: Vitals: 04/23/20 2257 04/24/20 0320 04/24/20 0815 04/24/20 1101 BP: 131/83 129/85 (!) 139/95 124/88 Pulse: 87 89 98 96 Resp: 16 15 16 16 Temp: 36.6 C (97.9 F) 36.5 C (97.7 F) 36.5 C (97.7 F) 36.6 C (97.8 F) TempSrc: Oral Oral Oral Oral SpO2: 97% 98% 98% 97% Weight: Height: Discharge Exam: General: Well nourished. Psych: Alert and oriented x 3. Calm, cooperative. Appears depressed Cardiovascular: Regular rate and rhythm, no murmurs, no thrills. Normal PMI. Respiratory: Clear to auscultation, no wheezing or crackles, breathing non labored. Gastrointestinal: Soft, non-tender, non-distended, positive bowel sounds. No HSM. Musculoskeletal: No edema in bilateral lower extremities. No joint swelling. Skin: Warm and dry, no rashes. Neck: No JVD, Trachea midline. Neurological: Non focal. Motor grossly intact. LABS: Recent Labs 04/24/20 0530 WBC 9.01 HGB 15.2 HCT 46.3 PLT 265 MCV 85.6 Recent Labs Lab 04/24/20 0530 NA 140 K 3.8 CL 109 CO2 24 ANIONGAP 11 BUN 10 CREA 0.70 CALCIUM 8.7 ALBUMIN 3.5* ALKPHOS 68 ALT 118* AST 43 MG 2.0 Recent Labs 04/24/20 0530 GLU 89 No results for input(s): TROPONIN, BNP in the last 72 hours. Disposition: Correctional facility Follow up: Kevin Martin MD [address] [place] [id number] Schedule an appointment as soon as possible for a visit in 1 week Discharge Medications Unchanged Medications Details dicyclomine 20 MG tablet Take 20 mg by mouth every 6 hours. aka: BENTYL lamoTRIgine 150 MG tablet Take 300 mg by mouth nightly . aka: LAMICTAL venlafaxine 150 mg 24 hr tablet Take 225 mg by mouth daily (with breakfast) . aka: EFFEXOR XR Joi Adams MD 04/24/2020 4:23 PM PDT Code Status: Full Code Discharge took35 minutes, to include final examination, discussion of admission, and prep aration of prescriptions, instructions for ongoing care, follow up and dictation of summary. This entry has been created using [employer] Speech Recognition software and [employer]. The entry has been reviewed and there may still exist sound alike word errors.Electronica lly signed by Joi Adams MD at 05/02/2020 1:45 PM PDTdocumented in this encou nter Discharge Instructions Instructions Joi Adams MD - 04/24/2020 DIET: Diet general; ACTIVITY: Activity as tolerated NOTIFY MD or Seek Medical Attention for any of the following: Temperature > 100.4F (38C) Persistant Nausea and Vomiting Severe Uncontrolled Pain Redness, Tenderness, or Signs of Infection (Pain, Swelling, Redness, Odor or Green/Yello w Discharge Around Incision Site) Difficulty Breathing, Headache or Visual Disturbances Persistant Dizziness or Light-Headedness Extreme Fatigue Any other concerns you might have AttachmentsThe following attachments cannot be sent through Care Everywhere.Coronavirus Dis ease 2019 (COVID-19): Prevention ([place])Coronavirus Disease 2019 (COVID-19)- Overview ([facility])documented in this encounter Medications at Time of Discharge + + + +---------+--------+ + | Medication | Sig | Dispensed | Refills | Start | End Date | | | | | | Date | | + + + +---------+--------+ + | dicyclomine | Take 20 mg by mouth | | 0 | | | | (BENTYL) 20 MG | every 6 hours. | | | | | | tablet | | | | | | + + + +---------+--------+ + | lamoTRIgine | Take 300 mg by mouth | | 0 | | | | (LAMICTAL) 150 MG | nightly . | | | | | | tablet | | | | | | + + + +---------+--------+ + | venlafaxine | Take 225 mg by mouth | | 0 | | | | (EFFEXOR XR) 150 mg | daily (with | | | | | | 24 hr tablet | breakfast) . | | | | | + + + +---------+--------+ + documented as of this encounter Progress Notes Joi Adams MD - 04/24/2020 8:29 AM PDTFormatting of this note might be diff erent from the original. [facility] Service: Hospitalist Progress Note Hospital Day: LOS: 1 day SUBJECTIVE Patient Summary: 39-year-old male with significant past medical history of colonic ine rtia status post subtotal colectomy with chronic diarrhea, chronic abdominal pain on dicyclo mine, mood disorder, history of methamphetamine use quit 6 years ago, history of hepatitis C not treated inmate of correctional center transferred from [facility] with re current episodes of seizure-like activity with tonic posturing. Patient was admitted at [facility] on April 21 with intractable nausea, vomiting, dehydration and recurrent syncopa l episodes. Possible syncopal episodes secondary to dehydration. Symptoms improved with IV hydration. CT of the abdomen and pelvis at outside hospital did not reveal any acute pathology. ESR w as 1. No etiology for intractable nausea and vomiting was found. His symptoms improved wit h antiemetics. Patient had weakness and episodes of tonic posturing movements. CT of the ead showed no acute findings. Patient transferred for neurology consultation. EEG is jenny l. MRI of the brain is negative. COVID-19 is negative. Urine tox screen was negative. Ne urology consulted. Events Overnight: Patient patient states that he does not feel well. He states that h e hurts all over his body. He had an episode of seizure while the EEG was done. Patient wilks s had several seizure-like episodes. Scheduled Medications enoxaparin 40 mg Subcutaneous Q24H lamoTRIgine 300 mg Oral Nightly pantoprazole 40 mg Oral QAM AC venlafaxine 225 mg Oral Nightly Continuous Infusions sodium chloride 0.9% 75 mL/hr at 04/24/20 0013 PRN Medications acetaminophen, dicyclomine, docusate sodium, LORazepam, melatonin, ondansetron, polyethylen e glycol, senna OBJECTIVE Vital Signs: BP (!) 139/95 | Pulse 98 | Temp 36.5 C (97.7 F) (Oral) | Resp 16 | Ht 1.88 m (6' 2" ) | Wt 89.7 kg (197 lb 12 oz) | SpO2 98% | BMI 25.39 kg/m Patient Vitals for the past 24 hrs: BP Temp Temp src Pulse Resp SpO2 Height Weight 04/24/20 0815 (!) 139/95 36.5 C (97.7 F) Oral 98 16 98 % 04/24/20 0320 129/85 36.5 C (97.7 F) Oral 89 15 98 % 04/23/20 2257 131/83 36.6 C (97.9 F) Oral 87 16 97 % 04/23/207 144/89 36.6 C (97.8 F) Oral 110 15 97 % 1.88 m (6' 2") 89.7 kg (197 lb 12 oz) No intake or output data in the 24 hours ending 04/24/20829 Physical Exam: Constitutional: Alert and oriented to person, place, and time. Appears well-developed and w ell-nourished. HEENT: Neck supple, no JVD, non icteric sclera. Cardiovascular: Normal rate, regular rhythm, normal heart sounds with S1 and S2, Exam re veals no gallop and no friction rub. No murmur heard. No S3, No S4 Pulmonary/Chest: Effort normal and breath sounds normal. No stridor. No respiratory distres s. no wheezes. no rales. exhibits no tenderness. Abdominal: Soft. Bowel sounds are normal. exhibits no distension and no mass. There is no t enderness. There is no rebound and no guarding. Extremeties/Musculoskeletal: Normal range of motion.exhibits no tenderness. exhibits no ed josefina. Neurological: Alert and oriented to person, place, and time. Skin: Skin is warm and dry. Psychiatric: Appears depressed. DATA Recent Labs 04/24/20 0530 WBC 9.01 HGB 15.2 HCT 46.3 PLT 265 MCV 85.6 Recent Labs Lab 04/24/20 0530 NA 140 K 3.8 CL 109 CO2 24 ANIONGAP 11 BUN 10 CREA 0.70 CALCIUM 8.7 ALBUMIN 3.5* ALKPHOS 68 ALT 118* AST 43 MG 2.0 Recent Labs 04/24/20 0530 GLU 89 No results for input(s): TROPONIN, BNP in the last 72 hours. Recent Labs Lab 04/24/20 0530 INR 1.1 No results for input(s): IRON, TIBC, PCTSAT, FERRITIN, TSH, [id number], FOLATE in the last 168 hours. No results for input(s): LACTATE, PROCALCITONI, CRP, ESR in the last 168 hours. No results for input(s): AMYLASE, LIPASE in the last 168 hours. No results for input(s): TRIG, CHOL, HDL, LDL in the last 168 hours. No results for input(s): AMMONIA in the last 168 hours. No results for input(s): PROCALCITONI in the last 72 hours. Microbiology Results (72 hrs) Procedure Component Value Units Date/Time Coronavirus (COVID-19) NAAT [[id number]] Collected: 04/23/20 2249 Order Status: Completed Lab Status: Final result Updated: 04/23/20 2350 Specimen: Tissue from Nasopharynx SARS-CoV-2, NAAT (COVID-19) NEGATIVE Comment: This test was developed and its performance characteristics determined by [employer]. It has not been cleared or approved by the [place] FDA. This test has been authorized by FDA under an Emergency Use Authorization (EUA). Clinicians should be advised to consider a patients signs, symptoms, history, and results of other diagnostic tests when interpreting results. Testing performed at [facility];[address] [place] [id number] No results found for this or any previous visit. Mri Brain W Wo Contrast Result Date: 04/24/2020 Normal MRI brain. Final Report Signed by: Randal Singer Jace Sign Date/Time: 04/24/2020 5:3 3 AM PROBLEM LIST Principal Problem: Witnessed seizure-like activity Active Problems: GERD with esophagitis Syncope and collapse Chronic diarrhea Chronic abdominal pain Mood disorder ASSESSMENT & PLAN Seizure-like activity with tonic posturing. Possible pseudoseizures. EEG is negative. MR I of the brain shows no acute findings. We will continue neurochecks. Neurology consulted. Will continue Ativan as needed and seizure precautions. Patient noted to have seizure-like activity during EEG but EEG was normal. COVID-19 negati ve. COVID-19 from outside facility is pending. Chronic abdominal pain with diarrhea. We will continue dicyclomine. GERD. We will continue Protonix. Recurrent syncopal episode. Possible vasovagal. Echocardiogram pending. Chronic hepatitis C. will monitor LFTs. Outpatient follow-up. Mood disorder. We will continue Lamictal and Effexor. DVT prophylaxis. We will continue Lovenox. Anticipate discharge to the correctional facility in 24 to 48 hours. Plan discussed with patient. All questions were answered . All data was reviewed. Disposition: Inpatient Code Status: Full Code Joi Adams MD 04/24/2020 8:30 AM PDT This entry has been created using [employer] Speech Recognition software and [employer]. The entry has been reviewed and there may still exist sound alike word errors. documented i n this encounter H&P Notes Fredy Yeager MD - 04/23/2020 9:48 PM PDTFormatting of this note might be different fro m the original. [facility] Service: Hospitalist Admission History & Physical Date of Admission: 04/23/2020 Primary Care Physician: KEVIN MARTIN MD Reason for Admission: Seizure-like activity with tonic posturing rule out new diagnosis of seizures. History Obtained From: History obtained from chart review and the patient. CHIEF COMPLAINT: No chief complaint on file. Generalized myalgias. HISTORY OF PRESENT ILLNESS The patient is a 39 y.o. male with significant past medical history of colonic inertia stat us post subtotal colectomy October 2017. Since that time as chronic diarrhea. Also has ch ronic abdominal pain and is on dicyclomine 4 times a day. Mood disorder on venlafaxine and Lamictal. Prior history of methamphetamine abuse quit 6 years ago. Former smoker. Hepatit is C not treated yet with mild transaminitis no history of cirrhosis. Patient is inmate at [facility] institution. Patient was transferred from [facility] as a direct admit to [facility] for evaluation of recurrent episodes of seizure-like activity with tonic post uring. Patient was admitted to their facility on 04/21/2020 with intractable nausea vomitin g dehydration recurrent syncopal events. He has felt hot and cold. He has had night sweats . Reported generalized myalgias. No prior history of seizure disorder or cardiac dysrhythm ias. CT scan of the abdomen and pelvis did not show any acute pathology. He is ESR was 1. No leukocytosis. Had mildly elevated ALT, likely transaminitis from chronic hepatitis C in fection. No etiology for intractable nausea vomiting was found. He was treated with IV ant iemetics famotidine and his symptoms improved he is able to tolerate diet now. Patient luis f bazzi reports intermittent nausea. Conclusion was syncopal events most likely secondary to de hydration. Improved after hydration.Telemetry did not show any cardiac dysrhythmias. He was admitted there for observation and was noted to have multiple episodes of tonic posturing movements. Described as "witnessed episodes where the upper extremities and lower extremiti es would go into tonic contraction along with his entire back which would arch these episode s would last between 30 seconds to 2 minutes per report during these episodes patient would hyperventilate and would be less responsive. There was no description of incontinence of st ool or urine during these episodes. Once the tonic posturing movements subside patient woul d remain with decreased responsiveness for about 30 seconds and then he would return to his baseline. In between these episodes he would be alert oriented and functioning normally". At their facility total 4 episodes with couple of hours in between were noted in route guard s reported one more similar episode. CT scan of the head did not show any acute abnormaliti es. Given unclear etiology for tonic posturing movements patient was transferred here for n eurology consultation and evaluation by EEG. Blood work at their facility CMP sodium 141 potassium 3.6 chloride 104 bicarbonate 26 BUN 9 creatinine 0.85 GFR 100 glucose 91 calcium 9.3 albumin of 4.2 magnesium 1.7 total bili 0.4 AST 43 ALT 100 alkaline phosphatase 62 total protein 6.8 globulin 2.6. CBC WBC 9.5 H&H 15 a nd 46 MCV 86 platelet count 259 neutrophils 67% lymphocytes mildly reduced at 19.4 eosinophi ls normal 4.0. Urine drug screen negative for her methamphetamines benzos cocaine marijuana barbiturates tricyclic antidepressants oxycodone methadone. UA did not suggest UTI. Hepat itis C virus RNA by PCR sent pending. EKG reported as sinus tachycardia. Patient is alert oriented x4. States he has history of chronic diarrhea 3-4 episodes per d ay since his colectomy. Has chronic abdominal pain 6 out of 10 intensity. In 1997 had bull et injury to his chest. No history of malignancy and seizure disorder. No recent fall or t rauma to head neck spine. Denies recent headaches or prior history of migraine headaches. No recent ear infections. No fevers or chills but has felt hot and cold and past couple of days has had night sweats. Denies any vertigo. No focal motor weakness tingling numbness s lurred speech facial asymmetry diplopia. No palpable lumps or bumps. No pleuritic chest pa in prior history of DVT PE no acute symptoms of DVT. Post event he experiences some blurred vision and tingling and numbness in his hands and feet transiently. Denies skin rashes aylin nt swellings mucosal ulcers cough shortness of breath. Appetite is normal. No weight loss. Allergies Allergen Reactions Penicillins Anaphylaxis Ciprofloxacin Rash Rash Review of Systems Constitutional: Negative for activity change, appetite change, chills, fatigue, fever and u nexpected weight change. HENT: Negative for congestion, dental problem, ear pain, hearing loss, mouth sores, noseble eds, rhinorrhea, sore throat, tinnitus and trouble swallowing. Eyes: Negative for photophobia and visual disturbance. Respiratory: Negative for apnea, cough, chest tightness, shortness of breath and wheezing. Cardiovascular: Negative for chest pain, palpitations and leg swelling. Gastrointestinal: Positive for abdominal pain, diarrhea and nausea. Negative for abdominal distention, blood in stool, constipation and vomiting. Chronic diffuse abdominal pain. Intermittent nausea. Chronic diarrhea no GI bleeding Endocrine: Negative for polydipsia, polyphagia and polyuria. Genitourinary: Negative for dysuria, flank pain, hematuria and urgency. Musculoskeletal: Positive for myalgias. Negative for gait problem, neck pain and neck stiff ness. Skin: Negative for pallor, rash and wound. Allergic/Immunologic: Negative for immunocompromised state. Neurological: Positive for syncope. Negative for dizziness, tremors, seizures, facial asymm etry, speech difficulty, weakness and headaches. Hematological: Negative for adenopathy. Does not bruise/bleed easily. Psychiatric/Behavioral: Negative for agitation, confusion, hallucinations and sleep disturb ance. The patient is not nervous/anxious. Active comorbid conditions include: - hepatitis; C; chronic Past Medical History: Diagnosis Date Colonic inertia GERD (gastroesophageal reflux disease) Hepatitis C Mood disorder (HCC) Past Surgical History: Procedure Laterality Date APPENDECTOMY COLONOSCOPY N/A 11/24/2019 Procedure: COLONOSCOPY; Surgeon: Delroy Lyons MD; Location: [facility] MEDICAL PROCEDURE U NIT OTHER SURGICAL HISTORY right side of chest wall S/p subtotal colectomy TONSILLECTOMY AND ADENOIDECTOMY Medications Prior to Admission Medication Sig Dispense Refill dicyclomine (BENTYL) 20 MG tablet Take 20 mg by mouth every 6 hours. lamoTRIgine (LAMICTAL) 150 MG tablet Take 150 mg by mouth nightly. venlafaxine (EFFEXOR XR) 150 mg 24 hr tablet Take 150 mg by mouth daily (with breakfast ). Social History Socioeconomic History Marital status: Single Spouse name: Not on file Number of children: Not on file Years of education: Not on file Highest education level: Not on file Occupational History Not on file Social Needs Financial resource strain: Not on file Food insecurity Worry: Not on file Inability: Not on file Transportation needs Medical: Not on file Non-medical: Not on file Tobacco Use Smoking status: Former Smoker Packs/day: 1.50 Smokeless tobacco: Former User Substance and Sexual Activity Alcohol use: Not Currently Drug use: Not Currently Comment: Drug use: Yes Sexual activity: Not on file Comment: not asked Lifestyle Physical activity Days per week: Not on file Minutes per session: Not on file Stress: Not on file Relationships Social connections Talks on phone: Not on file Gets together: Not on file Attends christianity service: Not on file Active member of club or organization: Not on file Attends meetings of clubs or organizations: Not on file Relationship status: Not on file Intimate partner violence Fear of current or ex partner: Not on file Emotionally abused: Not on file Physically abused: Not on file Forced sexual activity: Not on file Other Topics Concern Not on file Social History Narrative Inmate at [facility]. Full code. family history includes Heart disease in his maternal grandfather, maternal grandmother, an d mother; Hypertension in his maternal grandfather and mother; Stroke in his maternal grandf ather. PHYSICAL EXAM VITAL SIGNS BP 144/89 | Pulse 110 | Temp 36.6 C (97.8 F) (Oral) | Resp 15 | Ht 1.88 m (6' 2") | Wt 89.7 kg (197 lb 12 oz) | SpO2 97% | BMI 25.39 kg/m Physical Exam Vitals signs and nursing note reviewed. Constitutional: General: He is not in acute distress. Appearance: He is well-developed and normal weight. He is not ill-appearing, toxic-appea ring or diaphoretic. HENT: Head: Normocephalic and atraumatic. Nose: Nose normal. No congestion or rhinorrhea. Mouth/Throat: Mouth: Mucous membranes are moist. Pharynx: Oropharynx is clear. No oropharyngeal exudate or posterior oropharyngeal erythe ma. Comments: No tongue or lip laceration noted Eyes: General: No scleral icterus. Extraocular Movements: Extraocular movements intact. Conjunctiva/sclera: Conjunctivae normal. Pupils: Pupils are equal, round, and reactive to light. Neck: Musculoskeletal: Normal range of motion and neck supple. No neck rigidity. Thyroid: No thyromegaly. Vascular: No JVD. Cardiovascular: Rate and Rhythm: Regular rhythm. Tachycardia present. Pulses: Normal pulses. Heart sounds: Normal heart sounds. No murmur. No friction rub. No gallop. Pulmonary: Effort: Pulmonary effort is normal. No respiratory distress. Breath sounds: Normal breath sounds. No wheezing or rales. Chest: Chest wall: No tenderness. Abdominal: General: Bowel sounds are normal. There is no distension. Palpations: Abdomen is soft. Tenderness: There is abdominal tenderness. There is no right CVA tenderness, left CVA te nderness or guarding. Comments: Soft not distended bowel sounds present normal. No guarding no rigidity. Chr onic mild tenderness Musculoskeletal: General: No tenderness or deformity. Right lower leg: No edema. Left lower leg: No edema. Lymphadenopathy: Cervical: No cervical adenopathy. Skin: General: Skin is warm and dry. Coloration: Skin is not jaundiced. Findings: No erythema or rash. Comments: Tattoos present Neurological: General: No focal deficit present. Mental Status: He is alert and oriented to person, place, and time. Cranial Nerves: No cranial nerve deficit. Sensory: No sensory deficit. Motor: No weakness or abnormal muscle tone. Coordination: Coordination normal. Deep Tendon Reflexes: Reflexes normal. Comments: Gait is not tested Psychiatric: Mood and Affect: Mood normal. Behavior: Behavior normal. Thought Content: Thought content normal. Judgment: Judgment normal. DATA No results found for this or any previous visit (from the past 24 hour(s)). Microbiology Results (Last 7) Date with Culture/Sensitivity) No results found for the last 168 hours. IMAGING No results found for this or any previous visit (from the past 360 hour(s)). ASSESSMENT & PLAN Principal Problem: Witnessed seizure-like activity Active Problems: GERD with esophagitis Syncope and collapse Chronic diarrhea Chronic abdominal pain Mood disorder 1. Seizure-like activity with tonic posturing: Recurrent episodes lasting between 30 secon ds to 2 minutes associated with hyperventilation and decreased responsiveness. Has posticta l phase about 30 seconds. So far 5 episodes described. Need to rule out new onset seizures . Admit to acute care. Ordered telemetry neurochecks every 4 hrs. Ordered EEG. MRI of th e brain with and without contrast. A.m. hospitalist to consult neurology. Rule out SARS-Co V-2. Fall aspiration seizure precautions ordered. Ativan 2 mg IV every 6 PRN ordered. 2.GERD with possible esophagitis ordered Protonix daily. Chronic abdominal pain with diarr hea stable continue dicyclomine. 3. Recurrent syncope: At the outside facility was felt to be vasovagal. Ordered telemetry. Echocardiogram. 4. Hepatitis C with mild transaminitis. 5. Mood disorder: Continue Lamictal and venlafaxine. 6. DVT prophylaxis with subcu Lovenox ordered Addendum: 00:26am Reported by RN while in MRI patient had another episode of ? Seizure. As post ictal headac he. Ordered Toradol 7.5 mg IV x1 dose. Will arrange for EEG. Addendum: 4:48am Received a call from Dr. Devlin. No epileptiform discharges noted on the EEG. During the time of EEG monitoring patient did have seizure-like activity. But EEG was norm al. If patient continues to have recurrent similar episodes, Dr. Devlin recommends may need con tinuous EEG monitoring at [place]. Full Code Fredy Yeager MD 04/23/2020 9:48 PM PDT documented in this encounter Procedure Notes Lee Aldridge, Neurodiagnostic Tech - 04/24/2020 7:45 AM PDTAssociated Order(s): EEGF ormatting of this note might be different from the original. [facility] Neurodiagnostic Dept [address] [place] [address] Patient: Dylon Bahena ID: [id number] : 1980 Age: 39 Gender: male Room: 7118 Physician: Leno Helton Seaming Inspector: Dawn Zavala Ref. Physician: Fredy Yeager MD Recording Date: 04/24/2020 Duration: 00:25:19 Medications: toradol, lovenox, venlafaxine, Lamictal/Lamotrigine, ativan given about 1 hr prior to recording History: seizure like activity, new onset. recurrent episodes. tonic posturing Hx: meth abuse, hepatitis C, mood disosrder General Description: This was a 19 channel awake and drowsy EEG recording with Internation al 10/20 electrode placements. The background activity consisted of symmetrical, posterior d ominant, and low amplitude 9-12 Hz alpha frequency. These activities were symmetrical. Supe rimposed beta activity was also seen during this recording. Activation Procedures: Photic stimulation produced no significant changes to the backgroun d activity. Sleep Patterns: The drowsy portion of the record was characterized by attenuation of the b ackground activity with the presence of low amplitude activity seen diffusely. Impression: This EEG is normal. No focal, diffuse or generalized abnormalities were noted . No epileptiform discharges or seizure activity was seen. No EEG changes were seen during t he head and other movements. Beta activity is usually a medication effect. documented in this encounter Consult Notes Zoë Mahan MD - 04/24/2020 5:26 PM PDTAssociated Order(s): PROVIDER TO PROVIDER CONS ULT INPATIENT NEUROLOGY CONSULT Initial Consult Note Consult performed by: Dr. Zoë Mahan MD Requesting Physician: Angie Tan MD Reason for consult: Body posturing Assessment/Recommendations: [facility] Service: Neurology Date of Admission: 04/23/2020 History Obtained From: patient, chart review Subjective: Dylon Melissa is a 39 y.o. with history of colonic inertia status post subtotal colectomy with chronic abdominal pain, mood disorder, hepatitis C not treated and history of methamphe tamine use who was transferred from [facility] with recurrent episodes of pres umed seizure-like activity with tonic posturing of the body. Patient was initially admitted for intractable nausea, vomiting, dehydration and recurrent syncopal episodes which were th ought to be related to dehydration. His symptoms improved with IV fluids. Neurology was co nsulted given abnormal tonic posturing movements of the body with multiple episodes since ad mission. Patient states that he gets slightly confused afterwards just for a moment and ashley es any history of previous seizures. While patient denies recollection of these events he e ndorses them being "spasms" and endorses confusion after the events. Patient's nurse at bed side who witnessed this episode today as well as discussed with other nurses who took care o f him yesterday mentioned that during these episodes his body becomes rigid and he arches fo rward or has back arching and he stares off but on calling name he responds with making eye contact to the examiner and then goes back to staring off again. This lasts for few seconds in duration with no postictal confusion. There is no clonic movements described per nursing. Per critical care technician, there were recurrent episodes ( ~7) reported by nursing right before she wal ked into the room of the patient and patient had no further events while EEG was being done. However patient was not confused or altered right after the events despite having multiple events. Patient endorses chronic pain all over the body today during the visit and mentions that his nausea is improved. His EEG routine was normal and his MRI brain was negative for any acute abnormalities. His urine tox screen was negative. Patient endorses methamphetam ine use last 6 years ago prior to being incarcerated. Patient denies any family history of seizures. He denies any recent history of head trauma although he had concussion at very yo niurka age. Review of Systems Please see my HPI. All other system were reviewed and are negative. PMH: Patient Active Problem List Diagnosis Date Noted POA Precordial pain 05/28/2016 Unknown Priority: High SSS (sick sinus syndrome) 05/28/2016 Unknown Priority: Medium Witnessed seizure-like activity 04/23/2020 Yes Syncope and collapse 04/23/2020 Yes Chronic diarrhea 04/23/2020 Yes Chronic abdominal pain 04/23/2020 Yes Mood disorder 04/23/2020 Yes Diarrhea, unspecified type 06/21/2019 Unknown Constipation 06/17/2019 Unknown Postoperative hemorrhage 06/17/2019 Unknown Abdominal pain 06/17/2019 Unknown Chest pain 06/17/2019 Unknown Slow transit constipation 05/06/2018 Unknown Diarrhea 01/03/2018 Unknown Precordial pain 05/28/2016 Unknown SSS (sick sinus syndrome) 05/28/2016 Unknown Rectal pain 05/27/2016 Unknown Past Medical History: Diagnosis Date Colonic inertia GERD (gastroesophageal reflux disease) Hepatitis C Mood disorder (HCC) Past Surgical History: Procedure Laterality Date APPENDECTOMY COLONOSCOPY N/A 11/24/2019 Procedure: COLONOSCOPY; Surgeon: Delroy Lyons MD; Location: [facility] OTHER SURGICAL HISTORY right side of chest wall S/p subtotal colectomy Allergy: Allergies Allergen Reactions Penicillins Anaphylaxis Ciprofloxacin Rash Rash Fish Allergy Unknown Medications: Home medications: Prior to Admission medications Medication Sig Start Date End Date Taking? Authorizing Provider dicyclomine (BENTYL) 20 MG tablet Take 20 mg by mouth every 6 hours. Yes Historical Provi MD ori lamoTRIgine (LAMICTAL) 150 MG tablet Take 300 mg by mouth nightly . Yes Historical Cameron pastrana MD venlafaxine (EFFEXOR XR) 150 mg 24 hr tablet Take 225 mg by mouth daily (with breakfast) . Yes Historical ProviderMD Scheduled Meds: enoxaparin 40 mg Subcutaneous Q24H lamoTRIgine 300 mg Oral Nightly pantoprazole 40 mg Oral QAM AC venlafaxine 225 mg Oral Nightly FHx: Family History Problem Relation Age of Onset Heart disease Mother Hypertension Mother Heart disease Maternal Grandmother Heart disease Maternal Grandfather Hypertension Maternal Grandfather Stroke Maternal Grandfather SHx: Social History Socioeconomic History Marital status: Single Spouse name: Not on file Number of children: Not on file Years of education: Not on file Highest education level: Not on file Occupational History Not on file Social Needs Financial resource strain: Not on file Food insecurity Worry: Not on file Inability: Not on file Transportation needs Medical: Not on file Non-medical: Not on file Tobacco Use Smoking status: Former Smoker Packs/day: 1.50 Smokeless tobacco: Former User Tobacco comment: quit 2014 Substance and Sexual Activity Alcohol use: Not Currently Drug use: Not Currently Comment: methamphetamine. quit 6 years ago Sexual activity: Not on file Comment: not asked Lifestyle Physical activity Days per week: Not on file Minutes per session: Not on file Stress: Not on file Relationships Social connections Talks on phone: Not on file Gets together: Not on file Attends christianity service: Not on file Active member of club or organization: Not on file Attends meetings of clubs or organizations: Not on file Relationship status: Not on file Intimate partner violence Fear of current or ex partner: Not on file Emotionally abused: Not on file Physically abused: Not on file Forced sexual activity: Not on file Other Topics Concern Not on file Social History [facility]ative [facility]. Full code.children 6. No falls. Objective: Vitals: BP 124/88 | Pulse 96 | Temp 36.6 C (97.8 F) (Oral) | Resp 16 | Ht 1.88 m (6 ' 2") | Wt 89.7 kg (197 lb 12 oz) | SpO2 97% | BMI 25.39 kg/m General: Well developed, well nourished, in no acute distress, flat affect Neck: Supple Lungs: Clear bilaterally to A Heart: Regular rate and rhythm, S1, S2 Detailed Neurologic Exam: Mental status: Alert, oriented to place, person and date/time, situation Speech: normal; fluent and spontaneous with normal comprehension Cranial Nerves: Pupils are equal, round, and reactive to light. The fundi are unremarkable with normal venous pulsations. Visual cespedes are full to finger confrontation. Extraocular m ovements are intact. Facial sensation is intact and the muscles of mastication are normal. T he face is symmetric. Hearing symmetric bilaterally to fingers rubbing. The palate elevates in the midline. Voice is normal. Shoulder shrug is normal. The tongue midline without fascic ulations. Coordination: Not attempted secondary to being in arm cuffs Gait: Not attempted given secondary to restraints/arm and leg cuffs Motor: Movements: No asymmetry, no atrophy, and no involuntary movements noted. Tone: Normal muscle tone. Strength: Strength is 5/5 in the upper and lower limbs. Sensory: Light Touch: Normal light touch sensation in upper and lower extremities. . DTR's: Deep tendon reflexes in the upper and lower extremities are at 2 in biceps, brachior adialis, 2+ triceps. 3 in patella and 2 at ankles with 2 beats of clonus bilaterally. No sustained clonus Toes: The toes are downgoing bilaterally. Labs Lab Results Component Value Date WBC 9.01 04/24/2020 HGB 15.2 04/24/2020 HCT 46.3 04/24/2020 MCV 85.6 04/24/2020 PLT 265 04/24/2020 Lab Results Component Value Date BUN 10 04/24/2020 NA 140 04/24/2020 K 3.8 04/24/2020 CL 109 04/24/2020 CO2 24 04/24/2020 Recent Results (from the past 24 hour(s)) Coronavirus (COVID-19) NAAT Collection Time: 04/23/20 10:49 PM Specimen: Nasopharynx; Tissue Result Value Ref Range SARS-CoV-2, NAAT (COVID-19) NEGATIVE NEG Comprehensive Metabolic Panel Collection Time: 04/24/20 5:30 AM Result Value Ref Range Na 140 135 - 145 mmol/L K 3.8 3.5 - 4.9 mmol/L Cl 109 99 - 109 mmol/L CO2 24 23 - 32 mmol/L Anion Gap 11 5 - 20 mmol/L Glucose 89 65 - 99 mg/dL BUN 10 8 - 25 mg/dL Creatinine 0.70 0.70 - 1.30 mg/dL BUN/Creatinine Ratio 14 Calcium 8.7 8.5 - 10.5 mg/dL Protein, Total 7.3 6.3 - 8.2 g/dL Albumin 3.5 (L) 3.6 - 5.0 g/dL Globulin 3.8 1.3 - 4.9 g/dL A/G Ratio 0.9 (L) 1.0 - 2.4 BILIRUBIN, TOTAL 0.4 0.1 - 1.5 mg/dL ALK PHOS 68 35 - 115 U/L AST 43 10 - 45 U/L ALT 118 (H) 10 - 65 U/L Estimated GFR >60 >60 mL/min/1.73m2 CBC with Differential Collection Time: 04/24/20 5:30 AM Result Value Ref Range WBC 9.01 3.80 - 11.00 K/uL Red Blood Cells 5.41 4.20 - 5.70 M/uL Hemoglobin 15.2 13.2 - 17.0 g/dL Hematocrit 46.3 39.0 - 50.0 % MCV 85.6 80.0 - 100.0 fl MCH 28.1 27.0 - 34.0 pg MCHC 32.8 32.0 - 35.5 g/dL RDW-SD 39.8 37 - 53 fl Platelet Count 265 150 - 400 K/uL MPV 10.0 fl Diff Type AUTOMATED % nRBC 0.0 0 /100WBC % Neutrophils 60.80 % IMMATURE GRANULOCYTE 0.20 % % Lymphocytes 24.60 % Monocyte % 9.30 % Eosinophils % 4.80 % Basophils % 0.30 % Neutrophils, Absolute 5.47 1.90 - 7.40 K/uL IMMATURE GRANS AB 0.02 0.00 - 0.07 K/uL Absolute Lymphocytes 2.22 1.00 - 3.90 K/uL Absolute Monocytes 0.84 (H) 0.00 - 0.80 K/uL Eosinophils, Absolute 0.43 0.00 - 0.50 K/uL Basophils, Absolute 0.03 0.00 - 0.10 K/uL Magnesium Collection Time: 04/24/20 5:30 AM Result Value Ref Range Magnesium 2.0 1.7 - 2.4 mg/dL Protime INR Collection Time: 04/24/20 5:30 AM Result Value Ref Range INR 1.1 ECHO Complete Collection Time: 04/24/20 8:31 AM Result Value Ref Range Inferior Vena Cava Diameter at Expiration 1.72 cm RA PRESSURE 3 mmHg LVIDd 4.71 cm FS 28 % LA volume 40.92 mL Ascending aorta 3.23 cm AV mean gradient 4.45 mmHg Aortic Valve Area by Continuity VTI 3.3 cm2 PV peak gradient 2.32 mmHg LVOT diameter 2.03 cm LVOT peak reid 132.78 cm/s LVOT peak VTI 25.56 cm AV peak reid 140.49 cm/s AV VTI 25.09 cm AV peak gradient 7.89 mmHg PV mean gradient 1.29 mmHg LA Volume Index 19 mL/m2 AV LVOT Peak Gradient 7.05 mmHg AV LVOT Mean Gradient 4.29 mmHg PI Peak Velocity 76.13 cm/s LV Diastolic Length 4C 9.34 cm RV Diastolic Basal Diameter 3.61 cm LV Dominguez's Biplane EF 64 % LV ED Volume (Dominguez's) 80.35 ml LV ED Volume Index 37 ml/m2 LV ES Volume 28.78 ml LVOT Mean Velocity 98.41 cm/s MV Deceleration Time 236.64 msec MV E/A Ratio 1.35 MV Peak A-Wave 44.87 cm/s MV Peak E-Wave 60.45 cm/s PV Mean Velocity 54.63 cm/s AV Mean Velocity 99.3 cm/s LA Area 12.84 cm2 LA Major 0.2509 cm LV ES Volume Index 13 ml/m2 Vitals Heart Rate Rest 76 Vitals Height 188.0 Vitals Weight 89.00 IVS Diastolic Thickness MM 0.95 cm LVPW Diastolic Thickness MM 0.79 cm IVS Systolic Thickness MM 1.2 cm LV Systolic Diameter MM 3.38 cm LVPW Systolic Thickness MM 1.16 cm TAPSE 2.72 cm LVEF-TTE TRANSTHORACIC ECHO 65 % IMAGING Mri Brain W Wo Contrast Result Date: 04/24/2020 MRI BRAIN WITHOUT AND WITH CONTRAST CLINICAL INFORMATION: Seizures. COMPARISON: Noncontrast CT head 04/23/2020. PROCEDURE: Sagittal T1, axial FLAIR, axial T2, axial T1, axial gradient susceptibility, thin section temporal lobe coronal T2 FLAIR, axial 3D volume, axial T1 enhan srinivas and DWI sequences. Contrast: 9 ml Gadavist IV. FINDINGS: Brain: No intracranial hemorrha ge. No midline shift, pathologic enhancement, or mass lesion. No cerebral edema, restricted diffusion, or evidence of acute infarct. No evidence of structural/morphologic brain abnorma lities. Corpus callosum, deep brain nuclei, cerebral cortices, mesial temporal lobes/hippoca mpi, brainstem, and cervicomedullary junction are normal. Ventricles and extra-axial fluid s paces: Normal. Sella, suprasellar cistern, and orbits: Normal. Major vascular flow voids: No rmal. Calvarium and extracranial soft tissues: Normal. Paranasal sinuses and mastoid air jer ls: Normal. Impression- Normal MRI brain. Final Report Signed by: Randal Singer Jace Sign Date/Time: 04/24/2020 5:3 3 AM EEG: General Description: This was a 19 channel awake and drowsy EEG recording with Internation al 10/20 electrode placements. The background activity consisted of symmetrical, posterior d ominant, and low amplitude 9-12 Hz alpha frequency. These activities were symmetrical. Supe rimposed beta activity was also seen during this recording. Activation Procedures: Photic stimulation produced no significant changes to the backgro und activity. Sleep Patterns: The drowsy portion of the record was characterized by attenuation of the b ackground activity with the presence of low amplitude activity seen diffusely. Impression: This EEG is normal. No focal, diffuse or generalized abnormalities were noted . No epileptiform discharges or seizure activity was seen. No EEG changes were seen during t he head and other movements. Beta activity is usually a medication effect. Assessment: Patient is a 39-year-old man with history of chronic pain, colon problems and hepatitis C w ho was transferred from outside hospital for tonic posturing movements with concern for seiz ure. Patient had multiple episodes witnessed by nursing and staff. While patient denies re collection of these events he endorses them being "spasms" and endorses confusion after the events. EEG routine was negative for any electrographic seizures or epileptiform discharges and MRI brain testing was normal. Based on description of these events by staff with back arching and staring but momentarily attention, these appeared most likely as either pseudose izures or malingering. Other differentials considered would be dystonic posturing due to an tiemetic medications or anticholinergic medications. I discussed with patient that we will attempt to discontinue the Zofran/ondansetron which might help if these were dystonic postur ing episodes. We will not recommend any further testing or medications at this time for sei zures given low concern for seizures. Impression- 1-Pseudoseizures versus malingering versus dystonic posturing due to serotonergic medicatio ns Plan: - No recommendations for further testing of these episodes - No further recommendations for antiseizure medications at this time given low concern for seizures - Recommend discontinuing ondansetron/Zofran to prevent any dystonic posturing movements Code status: Full code Thank you for allowing me to participate in the care of this patient. Please call if there are any questions. Neurology will sign off at this time. I spent at least 70 minutes in which 50% of that time was spent face to face in counseling and coordination of the visit. documented in this en counter Miscellaneous Notes Plan of Care - Brenda Babcock RN - 04/24/2020 10:33 AM PDTCare Management Initial Asses sment Readmission Risk: Low Status Prior to Admission or Illness Arrival [facility]: [place] [place] [facility] Lives With: other (see comments) Living Arrangements: correctional facility Caregiver For: Patient s Caregiver: Functional Status: IADL Caregiving Concerns: Home Accessibility: Transportation Available: agency transportation Able to return to prior living: Care Management Concerns Last discharge date: Readmission Within Last 30 Days: no previous admission in last 30 days Is Readmission Diagnosis Related to or Same As: Previous Discharging Facility: Previous Discharge Destination From: PCP: KEVIN MARTIN MD Contact Information Family Contact Information: Name: Facility Pager: Fax: DC Needs Assessment Current Outpt/Agency/Support Groups: none Community Agency Name: Anticipated Changes Related to Illness: none Concerns to be Addressed: no discharge needs identified Services Anticipated at Discharge: none Equipment Used at Home: none Equipment Needed after Discharge: Durable Medical Equipment Provider: Pharmacy/Medication Needs: Transportation Needs: Initial Plan Anticipated Discharge Disposition: ([facility] [place] correction[facility] facility) Expected DC Date: Steps Taken Toward Discharge: (CM initial assessment) Next Steps: (f/u on potiental changes in discharge plan) Notes: [facility] [place] [facility] [address], [place] [address] [facility] number for nurse to nurse report is [phone] / o Chest pain patients that have ruled out go directly back to their correctional facility o If you have any questions or concerns, please call the [facility] Energy Project Engineer Electronically signed: BRENDA BABCOCK RN 04/24/2020 10:34 AM PDT lan of Care - Uche Jorge RN - 04/24/2020 8:09 AM [id number]: Pt stable and pleasant on assessment 0932:Orders placed: - general diet AVS and COVID teaching given to guards and pt, all questions answered. IV removed. Uche Brady, RN lan of Care - Tiffanie Mcdowell RN - 04/24/2020 6:14 AM PDTVSS throughout shift. At roughly 0050 seizures x 7 o bserved within 45 min lasting about 1-2 min each. Ativan administered during first episode. MD notified. Pt will become confused and disoriented after episodes but no excessive salivat ion or tongue biting noted. Pt is currently A&Ox4 and in no apparent distress. Will pass on concerns to incoming nurse. End of shift audit complete. Tiffanie Edmond RN Problem: Adult Inpatient Plan of Care Goal: Plan of Care Review Outcome: Ongoing, progressing Plan of care reviewed with patient. Education provided on need for MRI, EEG, echo, fluids, and clear liquid diet. Pt agreeable to plan. Questions encouraged. Problem: Seizure, Active Management Goal: Absence of Seizure/Seizure-Related Injury Outcome: Ongoing, progressing Neuro checks Q4H. Side rails padded and suction set up at bedside. Lamictal given as sched uled. Ativan available PRN. documented in this encounter Plan of Treatment Not on filedocumented as of this encounter Procedures + +--------+ + + + | Procedure Name | Priori | Date/Time | Associated Diagnosis | Comments | | | ty | | | | + +--------+ + + + | ECHO COMPLETE | Routin | 04/24/2020 | | Results for this | | | e | 8:31 AM | | procedure are in the | | | | PDT | | results section. | + +--------+ + + + | EEG | REINA | 04/24/2020 | | Results for this | | | | 7:45 AM | | procedure are in the | | | | PDT | | results section. | + +--------+ + + + | PROTIME INR | Routin | 04/24/2020 | | Results for this | | | e | 5:30 AM | | procedure are in the | | | | PDT | | results section. | + +--------+ + + + | CBC WITH | Routin | 04/24/2020 | | Results for this | | DIFFERENTIAL | e | 5:30 AM | | procedure are in the | | | | PDT | | results section. | + +--------+ + + + | MAGNESIUM | Routin | 04/24/2020 | | Results for this | | | e | 5:30 AM | | procedure are in the | | | | PDT | | results section. | + +--------+ + + + | COMPREHENSIVE | Routin | 04/24/2020 | | Results for this | | METABOLIC PANEL | e | 5:30 AM | | procedure are in the | | | | PDT | | results section. | + +--------+ + + + | MRI BRAIN W WO | Routin | 04/23/2020 | | Results for this | | CONTRAST | e | 11:58 PM | | procedure are in the | | | | PDT | | results section. | + +--------+ + + + | CORONAVIRUS | Routin | 04/23/2020 | | Results for this | | (COVID-19) NAAT | e | 10:49 PM | | procedure are in the | | | | PDT | | results section. | + +--------+ + + + documented in this encounter Results ECHO Complete (04/24/2020 8:31 AM PDT) + +--------+ + + + | Component | Value | Ref Range | Performed | Pathologist | | | | | At | Signature | + +--------+ + + + | Inferior | 1.72 | cm | [facility] | | | Vena Cava | | | | | | Diameter at | | | | | | Expiration | | | | | + +--------+ + + + | RA PRESSURE | 3 | mmHg | [facility] | | + +--------+ + + + | LVIDd | 4.71 | cm | [facility] | | + +--------+ + + + | FS | 28 | % | [facility] | | + +--------+ + + + | LA volume | 40.92 | mL | [facility] | | + +--------+ + + + | Ascending | 3.23 | cm | [facility] | | | aorta | | | | | + +--------+ + + + | AV mean | 4.45 | mmHg | [facility] | | | gradient | | | | | + +--------+ + + + | Aortic | 3.3 | cm2 | [facility] | | | Valve Area | | | | | | by | | | | | | Continuity | | | | | | VTI | | | | | + +--------+ + + + | PV peak | 2.32 | mmHg | [facility] | | | gradient | | | | | + +--------+ + + + | LVOT | 2.03 | cm | [facility] | | | diameter | | | | | + +--------+ + + + | LVOT peak | 132.78 | cm/s | [facility] | | | reid | | | | | + +--------+ + + + | LVOT peak | 25.56 | cm | [facility] | | | VTI | | | | | + +--------+ + + + | AV peak reid | 140.49 | cm/s | [facility] | | + +--------+ + + + | AV VTI | 25.09 | cm | [facility] | | + +--------+ + + + | AV peak | 7.89 | mmHg | [facility] | | | gradient | | | | | + +--------+ + + + | PV mean | 1.29 | mmHg | [facility] | | | gradient | | | | | + +--------+ + + + | LA Volume | 19 | mL/m2 | [facility] | | | Index | | | | | + +--------+ + + + | AV LVOT | 7.05 | mmHg | [facility] | | | Peak | | | | | | Gradient | | | | | + +--------+ + + + | AV LVOT | 4.29 | mmHg | [facility] | | | Mean | | | | | | Gradient | | | | | + +--------+ + + + | PI Peak | 76.13 | cm/s | [facility] | | | Velocity | | | | | + +--------+ + + + | LV | 9.34 | cm | [facility] | | | Diastolic | | | | | | Length 4C | | | | | + +--------+ + + + | RV | 3.61 | cm | [facility] | | | Diastolic | | | | | | Basal | | | | | | Diameter | | | | | + +--------+ + + + | LV | 64 | % | [facility] | | | Dominguez's | | | | | | Biplane EF | | | | | + +--------+ + + + | LV ED | 80.35 | ml | [facility] | | | Volume | | | | | | (Dominguez's) | | | | | + +--------+ + + + | LV ED | 37 | ml/m2 | [facility] | | | Volume | | | | | | Index | | | | | + +--------+ + + + | LV ES | 28.78 | ml | [facility] | | | Volume | | | | | + +--------+ + + + | LVOT Mean | 98.41 | cm/s | [facility] | | | Velocity | | | | | + +--------+ + + + | MV | 236.64 | msec | [facility] | | | Deceleratio | | | | | | n Time | | | | | + +--------+ + + + | MV E/A | 1.35 | | [facility] | | | Ratio | | | | | + +--------+ + + + | MV Peak | 44.87 | cm/s | [facility] | | | A-Wave | | | | | + +--------+ + + + | MV Peak | 60.45 | cm/s | [facility] | | | E-Wave | | | | | + +--------+ + + + | PV Mean | 54.63 | cm/s | [facility] | | | Velocity | | | | | + +--------+ + + + | AV Mean | 99.3 | cm/s | [facility] | | | Velocity | | | | | + +--------+ + + + | LA Area | 12.84 | cm2 | [facility] | | + +--------+ + + + | LA Major | 0.2509 | cm | [facility] | | + +--------+ + + + | LV ES | 13 | ml/m2 | [facility] | | | Volume | | | | | | Index | | | | | + +--------+ + + + | Vitals | 76 | | [facility] | | | Heart Rate | | | | | | Rest | | | | | + +--------+ + + + | Vitals | 188.0 | | [facility] | | | Height | | | | | + +--------+ + + + | Vitals | 89.00 | | [facility] | | | Weight | | | | | + +--------+ + + + | IVS | 0.95 | cm | [facility] | | | Diastolic | | | | | | Thickness | | | | | | MM | | | | | + +--------+ + + + | LVPW | 0.79 | cm | [facility] | | | Diastolic | | | | | | Thickness | | | | | | MM | | | | | + +--------+ + + + | IVS | 1.2 | cm | [facility] | | | Systolic | | | | | | Thickness | | | | | | MM | | | | | + +--------+ + + + | LV Systolic | 3.38 | cm | [facility] | | | Diameter | | | | | | MM | | | | | + +--------+ + + + | LVPW | 1.16 | cm | [facility] | | | Systolic | | | | | | Thickness | | | | | | MM | | | | | + +--------+ + + + | TAPSE | 2.72 | cm | [facility] | | + +--------+ + + + | LVEF-TTE | 65 | % | [facility] | | | TRANSTHORAC | | | | | | IC ECHO | | | | | + +--------+ + + + + + | Specimen | + + | | + + + + + | Narrative | Performed At | + + + | Normal left | [facility] | | ventricular systolic function by 2D biplane imaging. The left | | | ventricular ejection fraction is 65%. | | + + + + +---------+ + + | Performing | Address | City/State/Zipcode | Phone Number | | Organization | | | | + +---------+ + + | [facility] | | | | + +---------+ + + EEG (04/24/2020 7:45 AM PDT) + + + | Narrative | Performed At | + + + | Lee Aldridge, Neurodiagnostic Tech 04/24/2020 7:45 AM | | | [facility] Neurodiagn[facility] [address] | | | [place] [address] Patient: Dylon Bahena ID: [id number] : | | | 1980 Age: 39 Gender: male Room: [facility] Physician: Danie, | | | Leno Seaming Inspector: Dawn Zavala. Physician: Fredy Yeager MD | | | Recording Date: 04/24/2020 Duration: 00:25:19 | | | Medications: toradol, lovenox, venlafaxine, Lamictal/Lamotrigine, | | | ativan given about 1 hr prior to recording History: seizure like | | | activity, new onset. recurrent episodes. tonic posturing Hx: meth | | | abuse, hepatitis C, mood disosrder General Description: This was a | | | 19 channel awake and drowsy EEG recording with [employer] 10/20 | | | electrode placements. The background activity consisted of | | | symmetrical, posterior dominant, and low amplitude 9-12 Hz alpha | | | frequency. These activities were symmetrical. Superimposed beta | | | activity was also seen during this recording. Activation | | | Procedures: Photic stimulation produced no significant changes to | | | the background activity. Sleep Patterns: The drowsy portion of | | | the record was characterized by attenuation of the background | | | activity with the presence of low amplitude activity seen diffusely. | | | Impression: This EEG is normal. No focal, diffuse or | | | generalized abnormalities were noted. No epileptiform discharges or | | | seizure activity was seen. No EEG changes were seen during the head | | | and other movements. Beta activity is usually a medication effect. | | | | | + + + Protime INR (04/24/2020 5:30 AM PDT) + + + + + + | Component | Value | Ref Range | Performed | Pathologist | | | | | At | Signature | + + + + + + | INR | 1.1Comment: REFERENCE | | [facility] | | | | RANGE:0.9 - 1.2 | | LABORATORY | | | | NON-ANTICOAGULATED2.0 | | | | | | - 3.0 ALL OTHER | | | | | | THERAPEUTIC | | | | | | INDICATIONS2.5 - 3.5 | | | | | | MECHANICAL HEART VALVES, | | | | | | RECURRENT OR SYSTEMIC | | | | | | EMBOLISMTesting | | | | | | performed at [facility] | | | | | | [facility];[place], [place] | | | | | | [address] | | | | + + + + + + + + | Specimen | + + | Blood | + + + + + + + | Performing | Address | City/State/Zipcode | Phone Number | | Organization | | | | + + + + + | [facility] | [address] | [place] [address] | [phone] | + + + + + Magnesium (04/24/2020 5:30 AM PDT) + + + + + + | Component | Value | Ref Range | Performed | Pathologist | | | | | At | Signature | + + + + + + | Magnesium | 2.0Comment: Testing | 1.7 - 2.4 mg/dL | [facility] | | | | performed at [facility];[address] | | LABORATORY | | | | [address];[place] | | | | | | [address] | | | | + + + + + + + + | Specimen | + + | Blood | + + + + + + + | Performing | Address | City/State/Zipcode | Phone Number | | Organization | | | | + + + + + | [facility] | [address] | [place] [address] | [phone] | + + + + + CBC with Differential (04/24/2020 5:30 AM PDT) + + + + + + | Component | Value | Ref Range | Performed | Pathologist | | | | | At | Signature | + + + + + + | WBC | 9.01 | 3.80 - 11.00 | [facility] | | | | | K/uL | LABORATORY | | + + + + + + | Red Blood | 5.41 | 4.20 - 5.70 | [facility] | | | Cells | | M/uL | LABORATORY | | + + + + + + | Hemoglobin | 15.2 | 13.2 - 17.0 | [facility] | | | | | g/dL | LABORATORY | | + + + + + + | Hematocrit | 46.3 | 39.0 - 50.0 % | [facility] | | | | | | LABORATORY | | + + + + + + | MCV | 85.6 | 80.0 - 100.0 fl | [facility] | | | | | | LABORATORY | | + + + + + + | MCH | 28.1 | 27.0 - 34.0 pg | [facility] | | | | | | LABORATORY | | + + + + + + | MCHC | 32.8 | 32.0 - 35.5 | [facility] | | | | | g/dL | LABORATORY | | + + + + + + | RDW-SD | 39.8 | 37 - 53 fl | [facility] | | | | | | LABORATORY | | + + + + + + | Platelet | 265 | 150 - 400 K/uL | [facility] | | | Count | | | LABORATORY | | + + + + + + | MPV | 10.0Comment: NO NORMAL | fl | [facility] | | | | RANGE ESTABLISHED | | LABORATORY | | + + + + + + | Diff Type | AUTOMATED | | [facility] | | | | | | LABORATORY | | + + + + + + | % nRBC | 0.0 | 0 /100WBC | [facility] | | | | | | LABORATORY | | + + + + + + | % | 60.80 | % | [facility] | | | Neutrophils | | | LABORATORY | | + + + + + + | IMMATURE | 0.20 | % | [facility] | | | GRANULOCYTE | | | LABORATORY | | + + + + + + | % | 24.60 | % | [facility] | | | Lymphocytes | | | LABORATORY | | + + + + + + | Monocyte % | 9.30 | % | [facility] | | | | | | LABORATORY | | + + + + + + | Eosinophils | 4.80 | % | [facility] | | | % | | | LABORATORY | | + + + + + + | Basophils % | 0.30 | % | [facility] | | | | | | LABORATORY | | + + + + + + | Neutrophils | 5.47 | 1.90 - 7.40 | [facility] | | | , Absolute | | K/uL | LABORATORY | | + + + + + + | IMMATURE | 0.02Comment: NOTE NEW | 0.00 - 0.07 | [facility] | | | GRANS AB | REFERENCE RANGE | K/uL | LABORATORY | | + + + + + + | Absolute | 2.22 | 1.00 - 3.90 | [facility] | | | Lymphocytes | | K/uL | LABORATORY | | + + + + + + | Absolute | 0.84 (H) | 0.00 - 0.80 | [facility] | | | Monocytes | | K/uL | LABORATORY | | + + + + + + | Eosinophils | 0.43 | 0.00 - 0.50 | [facility] | | | , Absolute | | K/uL | LABORATORY | | + + + + + + | Basophils, | 0.03Comment: Testing | 0.00 - 0.10 | [facility] | | | Absolute | performed at [facility], [address] | K/uL | LABORATORY | | | | [place], | | | | | | [place] [address] | | | | + + + + + + + + | Specimen | + + | Blood | + + + + + + + | Performing | Address | City/State/Zipcode | Phone Number | | Organization | | | | + + + + + | [facility] | [address] | [place] [address] | [phone] | + + + + + Comprehensive Metabolic Panel (04/24/2020 5:30 AM PDT) + + + + + + | Component | Value | Ref Range | Performed | Pathologist | | | | | At | Signature | + + + + + + | Na | 140 | 135 - 145 | [facility] | | | | | mmol/L | LABORATORY | | + + + + + + | K | 3.8 | 3.5 - 4.9 | [facility] | | | | | mmol/L | LABORATORY | | + + + + + + | Cl | 109 | 99 - 109 mmol/L | [facility] | | | | | | LABORATORY | | + + + + + + | CO2 | 24 | 23 - 32 mmol/L | [facility] | | | | | | LABORATORY | | + + + + + + | Anion Gap | 11 | 5 - 20 mmol/L | [facility] | | | | | | LABORATORY | | + + + + + + | Glucose | 89 | 65 - 99 mg/dL | [facility] | | | | | | LABORATORY | | + + + + + + | BUN | 10 | 8 - 25 mg/dL | [facility] | | | | | | LABORATORY | | + + + + + + | Creatinine | 0.70 | 0.70 - 1.30 | [facility] | | | | | mg/dL | LABORATORY | | + + + + + + | BUN/Creatin | 14 | | [facility] | | | ine Ratio | | | LABORATORY | | + + + + + + | Calcium | 8.7 | 8.5 - 10.5 | [facility] | | | | | mg/dL | LABORATORY | | + + + + + + | Protein, | 7.3 | 6.3 - 8.2 g/dL | [facility] | | | Total | | | LABORATORY | | + + + + + + | Albumin | 3.5 (L) | 3.6 - 5.0 g/dL | [facility] | | | | | | LABORATORY | | + + + + + + | Globulin | 3.8 | 1.3 - 4.9 g/dL | [facility] | | | | | | LABORATORY | | + + + + + + | A/G Ratio | 0.9 (L) | 1.0 - 2.4 | [facility] | | | | | | LABORATORY | | + + + + + + | BILIRUBIN, | 0.4 | 0.1 - 1.5 mg/dL | [facility] | | | TOTAL | | | LABORATORY | | + + + + + + | ALK PHOS | 68 | 35 - 115 U/L | [facility] | | | | | | LABORATORY | | + + + + + + | AST | 43 | 10 - 45 U/L | [facility] | | | | | | LABORATORY | | + + + + + + | ALT | 118 (H) | 10 - 65 U/L | [facility] | | | | | | LABORATORY | | + + + + + + | Estimated | >60Comment: GFR <60: | >60 | [facility] | | | GFR | CHRONIC KIDNEY DISEASE, | mL/min/1.73m2 | LABORATORY | | | | IF FOUND OVER A 3 MONTH | | | | | | PERIOD.GFR <15: KIDNEY | | | | | | FAILURE.FOR | | | | | | AMERICANS, MULTIPLY THE | | | | | | CALCULATED GFR BY | | | | | | 1.210.This eGFR is | | | | | | calculated using the | | | | | | [facility] traceable | | | | | | equation.Testing | | | | | | performed at [facility], [address] | | | | | | [facility], | | | | | | [place] [address] | | | | + + + + + + + + | Specimen | + + | Blood | + + + + + + + | Performing | Address | City/State/Zipcode | Phone Number | | Organization | | | | + + + + + | [facility] | [address] | [place] [address] | [phone] | + + + + + MRI Brain w wo Contrast (04/23/2020 11:58 PM PDT) + + | Specimen | + + | | + + + + + | Impressions | Performed At | + + + | Normal MRI brain. Final Report Signed by: Randal Singer, | [facility] | | Nicanor Sign Date/Time: 04/24/2020 5:33 AM | | + + + + + + | Narrative | Performed At | + + + | MRI BRAIN WITHOUT AND WITH CONTRAST CLINICAL INFORMATION: | [facility] | | Seizures. COMPARISON: Noncontrast CT head 04/23/2020. | | | PROCEDURE: Sagittal T1, axial FLAIR, axial T2, axial T1, axial | | | gradient susceptibility, thin section temporal lobe coronal T2 FLAIR, | | | axial 3D volume, axial T1 enhanced and DWI sequences. Contrast: | | | 9 ml Gadavist IV. FINDINGS: Brain: No intracranial hemorrhage. No | | | midline shift, pathologic enhancement, or mass lesion. No cerebral | | | edema, restricted diffusion, or evidence of acute infarct. No | | | evidence of structural/morphologic brain abnormalities. Corpus | | | callosum, deep brain nuclei, cerebral cortices, mesial temporal | | | lobes/hippocampi, brainstem, and cervicomedullary junction are | | | normal. Ventricles and extra-axial fluid spaces: Normal. | | | Sella, suprasellar cistern, and orbits: Normal. Major vascular | | | flow voids: Normal. Calvarium and extracranial soft tissues: | | | Normal. Paranasal sinuses and mastoid air cells: Normal. | | + + + + + | Procedure Note | + + | Al[place], [id number] - 04/24/2020 5:36 AM PDT | | MRI BRAIN WITHOUT AND WITH CONTRAST | | | | CLINICAL INFORMATION: | | Seizures. | | | | COMPARISON: | | Noncontrast CT head 04/23/2020. | | | | PROCEDURE: | | Sagittal T1, axial FLAIR, axial T2, axial T1, axial gradient | | susceptibility, thin section temporal lobe coronal T2 FLAIR, axial 3D | | volume, axial T1 enhanced and DWI sequences. | | | | Contrast: 9 ml Gadavist IV. | | | | FINDINGS: | | Brain: No intracranial hemorrhage. No midline shift, pathologic | | enhancement, or mass lesion. No cerebral edema, restricted diffusion, | | or evidence of acute infarct. No evidence of structural/morphologic | | brain abnormalities. Corpus callosum, deep brain nuclei, cerebral | | cortices, mesial temporal lobes/hippocampi, brainstem, and | | cervicomedullary junction are normal. | | | | Ventricles and extra-axial fluid spaces: Normal. | | | | Sella, suprasellar cistern, and orbits: Normal. | | | | Major vascular flow voids: Normal. | | | | Calvarium and extracranial soft tissues: Normal. | | | | Paranasal sinuses and mastoid air cells: Normal. | | | | IMPRESSION: | | Normal MRI brain. | | | | | | | | | | Final Report Signed by: Randal Singer Jace | | Sign Date/Time: 04/24/2020 5:33 AM | + + + +---------+ + + | Performing | Address | City/State/In[facility] Centercode | Phone Number | | Organization | | | | + +---------+ + + | [facility] | | | | + +---------+ + + Coronavirus (COVID-19) NAAT (04/23/2020 10:49 PM PDT) + + + + + + | Component | Value | Ref Range | Performed | Pathologist | | | | | At | Signature | + + + + + + | SARS-CoV-2, | NEGATIVEComment: This | NEG | [facility] | | | NAAT | test was developed and | | LABORATORY | | | (COVID-19) | its performance | | | | | | characteristics | | | | | | determined by[employer]ep[employer]. It | | | | | | has not been cleared or | | | | | | approved by the [place] FDA. | | | | | | This test has | | | | | | beenauthorized by FDA | | | | | | under an Emergency Use | | | | | | Authorization (EUA). | | | | | | Clinicians shouldbe | | | | | | advised to consider a | | | | | | patients signs, | | | | | | symptoms, history, and | | | | | | results ofother | | | | | | diagnostic tests when | | | | | | interpreting | | | | | | results.Testing | | | | | | performed at [facility] | | | | | | [facility];[place], [place] | | | | | | [address] | | | | + + + + + + + + | Specimen | + + | Tissue - Entire | | nasopharynx (body | | structure) | + + + + + + + | Performing | Address | City/State/Zipcode | Phone Number | | Organization | | | | + + + + + | [facility] | [address] | [place] [address] | [phone] | + + + + + documented in this encounter Visit Diagnoses + + | Diagnosis | + + | Witnessed seizure-like activity (HCC) - Primary | + + | Chronic abdominal pain Abdominal pain, unspecified site | + + | Chronic diarrhea Diarrhea | + + | GERD with esophagitis | + + | Mood disorder (HCC) Unspecified episodic mood disorder | + + | Syncope and collapse | + + | Functional neurological symptom disorder with abnormal movement | + + documented in this encounter Administered Medications + +--------+ +--------+------+------+ | Medication Order | MAR | Action | Dose | Rate | Site | | | Action | Date | | | | + +--------+ +--------+------+------+ | acetaminophen (TYLENOL) tablet | Given | 04/23/20 | 650 mg | | | | 650 mg 650 mg, Oral, EVERY 6 | | 20 10:55 | | | | | HOURS PRN, Fever, or fever >= | | PM PDT | | | | | 38.6 C (101.5 F), Starting Sun | | | | | | | 04/23/20 at 2152 | | | | | | + +--------+ +--------+------+------+ +---+---+ | | | +---+---+ + +-------+ +-------+---+ + | enoxaparin (LOVENOX) 40 mg/0.4 | Given | 04/24/20 | 40 mg | | Abdomen- | | mL injection 40 mg 40 mg, | | 20 7:40 | | | LLQ | | Subcutaneous, EVERY 24 HOURS, | | AM PDT | | | | | First dose on 04/24/20 at 0900 | | | | | | + +-------+ +-------+---+ + +---+---+ | | | +---+---+ + +-------+ +-------+---+---+ | gadobutrol (GADAVIST) injection | Given | 04/23/20 | 9 mLs | | | | 9 mL 9 mL, Intravenous, ONCE | | 20 11:54 | | | | | PRN, Other, Starting 04/23/20 | | PM PDT | | | | | at 2342, For 1 dose, MRI | | | | | | + +-------+ +-------+---+---+ +---+---+ | | | +---+---+ + +-------+ +--------+---+---+ | ketorolac (TORADOL) injection | Given | 04/24/20 | 7.5 mg | | | | 7.5 mg 7.5 mg, Intravenous, | | 20 12:38 | | | | | ONCE, 04/24/20 at 0045, For 1 | | AM PDT | | | | | dose | | | | | | + +-------+ +--------+---+---+ +---+---+ | | | +---+---+ + +-------+ +--------+---+---+ | lamoTRIgine (laMICtal) tablet | Given | 04/23/20 | 300 mg | | | | 300 mg 300 mg, Oral, NIGHTLY, | | 20 10:55 | | | | | First dose (after last | | PM PDT | | | | | modification) on 04/23/20 at | | | | | | | 2230 | | | | | | + +-------+ +--------+---+---+ +---+---+ | | | +---+---+ + +-------+ +------+---+---+ | LORazepam (ATIVAN) injection 2 | Given | 04/24/20 | 2 mg | | | | mg 2 mg, Intravenous, EVERY 6 | | 20 12:54 | | | | | HOURS PRN, Seizures, Starting Sun | | AM PDT | | | | | 04/23/20 at 2154 | | | | | | + +-------+ +------+---+---+ +---+---+ | | | +---+---+ + +-------+ +------+---+---+ | morphine injection 1 mg 1 mg, | Given | 04/24/20 | 1 mg | | | | Intravenous, ONCE, 04/24/20 at | | 20 3:17 | | | | | 0330, For 1 dose | | AM PDT | | | | + +-------+ +------+---+---+ +---+---+ | | | +---+---+ + +-------+ +------+---+---+ | ondansetron (ZOFRAN) injection | Given | 04/24/20 | 4 mg | | | | 4 mg 4 mg, Intravenous, EVERY 6 | | 20 1:29 | | | | | HOURS PRN, Nausea, Vomiting, | | AM PDT | | | | | Starting 04/23/20 at 2152, | | | | | | | First line agent, | | | | | | + +-------+ +------+---+---+ +---+---+ | | | +---+---+ + +-------+ +-------+---+---+ | pantoprazole (PROTONIX) DR | Given | 04/24/20 | 40 mg | | | | tablet 40 mg 40 mg, Oral, DAILY | | 20 7:39 | | | | | BEFORE BREAKFAST, First dose on | | AM PDT | | | | | 04/24/20 at 0730, Do not cut | | | | | | | or crush., Indication: GERD | | | | | | + +-------+ +-------+---+---+ +---+---+ | | | +---+---+ + +---------+ +---+ +---+ | sodium chloride 0.9% (NS) | New Bag | 04/24/20 | | 75 mL/hr | | | infusion at 75 mL/hr, | | 20 12:13 | | | | | Intravenous, CONTINUOUS, Starting | | AM PDT | | | | | 04/23/20 at 2215 | | | | | | + +---------+ +---+ +---+ +---+---+ | | | +---+---+ + +-------+ +--------+---+---+ | venlafaxine (EFFEXOR XR) ER | Given | 04/23/20 | 225 mg | | | | capsule 225 mg 225 mg, Oral, | | 20 10:55 | | | | | NIGHTLY, First dose (after last | | PM PDT | | | | | modification) on 04/23/20 at | | | | | | | 2230 | | | | | | + +-------+ +--------+---+---+ +---+---+ | | | +---+---+ documented in this encounter Additional Health Concerns + + + + + | Infection | Onset Date | Last Indicated | Resolved Time | + + + + + | Rule out COVID-19 | 04/23/2020 | 04/23/2020 | 04/23/2020 11:50 PM | | | | | PDT | + + + + + documented as of this encounter
--- OUTSIDE RECORDS SUMMARY | ~2020-05-03 | XMS | Encounter Summary ---
Demographics + + + | Address | [address] | | | [place] [address] | + + + | Home Phone | | + + + | Preferred Language | Unknown | + + + | Marital Status | Single | + + + | Lutheran Affiliation | Unknown | + + + | Race | Unknown | + + + | Ethnic Group | Unknown | + + + Author + + + | Author | [facility] | | | and [place] | + + + | Organization | [facility] | | | and [place] | + + + | Address | Unknown | + + + | Phone | Unavailable | + + + Support + + +---------+ + | Name | Relationship | Address | Phone | + + +---------+ + | [place] | ECON | Unknown | | | Corrections | | | | + + +---------+ + Care Team Providers + +------+ + | Care Joinery Patternmaker Name | Role | Phone | + +------+ + | Kevin Martin MD | PCP | | + +------+ + Reason for Visit + +--------+ + | Reason | Onset | Comments | | | Date | | + +--------+ + | Procedure | 10/04/ | Instructions/ Prep for 10/20/19 | | | 2020 | | + +--------+ + Encounter Details +--------+ + + + + | Date | Type | Department | Care Team | Description | +--------+ + + + + | 10/04/ | Telephone | [facility] | Delroy Lyons, | Procedure | | 2020 | | GENERAL SURGERY [address] | MD [address] | (Instructions/ Prep | | | | [address] | [address] | for 10/20/19) | | | | [place], [place] | [place] [address] | | | | | [address] | [phone] | | | | | [phone] | | | +--------+ + + + [...] + + documented as of this encounter Miscellaneous Notes Telephone Encounter - Alexus Chaves, Locksmith Helper - 10/11/2019 11:08 AM PSTPrep in structions sent to [facility] facilities request via fax. Fax confirmation received. Electr onically signed by Alexus Chaves, Locksmith Helper at 10/11/2019 11:08 AM PSTTelePamela Matrinez 10/04/2019 9:25 AM PSTCassidgaye- [facility], is calling regarding Procedure (Instructions/ Prep for 10/20/19) and would like a call back. Additional Call Details: Caller would like the prep instructions for patient's 10/20/19 pro cedure. Please fax to [phone]. If this is a symptom based call, was patient offered triage? Not Applicable If this is a symptom based call and you were unable to immediately transfer the call to a p fracisco hasher operator was caller made aware that if at any time he feels it is an emergency they erin uld call 911 or go to the nearest emergency room? not applicable documented in this encounter Plan of Treatment Not on filedocumented as of this encounter Visit Diagnoses Not on filedocumented in this encounter"
--- OUTSIDE RECORDS SUMMARY | ~2020-05-03 | XMS | Encounter Summary ---
Demographics + + + | Address | [address] | | | [place] [address] | + + + | Home Phone | | + + + | Preferred Language | Unknown | + + + | Marital Status | Single | + + + | Advent Affiliation | Unknown | + + + | Race | Unknown | + + + | Ethnic Group | Unknown | + + + Author + + + | Author | [facility] | | | and [place] | + + + | Organization | [facility] | | | and [place] | + + + | Address | Unknown | + + + | Phone | Unavailable | + + + Support + + +---------+ + | Name | Relationship | Address | Phone | + + +---------+ + | [place] | ECON | Unknown | | | Corrections | | | | + + +---------+ + Care Team Providers + +------+ + | Care Boat Motor Mechanic Name | Role | Phone | + +------+ + | Kevin Martin MD | PCP | | + +------+ + Reason for Visit + +--------+ + | Reason | Onset | Comments | | | Date | | + +--------+ + | Procedure | 09/15/ | | | | 2019 | | + +--------+ + Encounter Details +--------+ + + + + | Date | Type | Department | Care Team | Description | +--------+ + + + + | 09/15/ | Telephone | [facility] | Delroy Lyons, | Procedure | | 2019 | | GENERAL SURGERY [address] | MD [address] | | | | | [address] | [address] | | | | | [place], [place] | [place] [address] | | | | | [address] | [phone] | | | | | [phone] | | | +--------+ + + + [...] this encounter Miscellaneous Notes Telephone Encounter - Trudy Sloan - 09/16/2019 8:36 AM PSTContacted Jeanette at [facility] a nd she stated that she needing to schedule the patients scope with Dr Lyons. Offered and Jeanette accepted on behalf of the patient. Jeanette requested the patient be to make transportation arrangements. No further questions or concerns. elephone Encounter - Camejoantonieta OseiBess ojeda - 09/15/2019 3:23 PM PSTBree- [facility], is [facility] and would like a call back. Additional Call Details: Calling to schedule colonoscopy. Please call her back at If this is a symptom based call, was patient offered triage? Not Applicable If this is a symptom based call and you were unable to immediately transfer the call to a bruce yap wood preserving plant laborer was caller made aware that if at any time he feels it is an emergency they erin uld call 911 or go to the nearest emergency room? not applicable documented in this encounter Plan of Treatment Not on filedocumented as of this encounter Visit Diagnoses Not on filedocumented in this encounter"
--- OUTSIDE RECORDS SUMMARY | ~2020-05-03 | XMS | Encounter Summary ---
Demographics + + + | Address | [address] | | | [place] [address] | + + + | Home Phone | | + + + | Preferred Language | Unknown | + + + | Marital Status | Single | + + + | Rastafari Affiliation | Unknown | + + + | Race | Unknown | + + + | Ethnic Group | Unknown | + + + Author + + + | Author | [facility] | | | and [place] | + + + | Organization | [facility] | | | and [place] | + + + | Address | Unknown | + + + | Phone | Unavailable | + + + Support + + +---------+ + | Name | Relationship | Address | Phone | + + +---------+ + | [place] | ECON | Unknown | | | Corrections | | | | + + +---------+ + Care Team Providers + +------+ + | Care Adzing And Boring Machine Feeder Name | Role | Phone | + [...] | | | | [place] | [phone] | | | | | [address] | | | | | | [phone] | | | +--------+ + + + [...] Visit Diagnoses Not on filedocumented in this encounter Additional Health Concerns + + + + + | Infection | Onset Date | Last Indicated | Resolved Time | + + + + + | Rule out COVID-19 | 04/23/2020 | 04/23/2020 | 04/23/2020 11:50 PM | | | | | PDT | + + + + + documented as of this encounter"
--- OUTSIDE RECORDS SUMMARY | ~2020-05-03 | XMS | Encounter Summary ---
Demographics + + + | Address | [address] | | | [place] [address] | + + + | Home Phone | | + + + | Preferred Language | Unknown | + + + | Marital Status | Single | + + + | Holiness Affiliation | Unknown | + + + | Race | Unknown | + + + | Ethnic Group | Unknown | + + + Author + + + | Author | [facility] | | | and [place] | + + + | Organization | [facility] | | | and [place] | + + + | Address | Unknown | + + + | Phone | Unavailable | + + + Support + + +---------+ + | Name | Relationship | Address | Phone | + + +---------+ + | [place] | ECON | Unknown | | | Corrections | | | | + + +---------+ + Care Team Providers + +------+ + | Care Technical Agronomist Name | Role | Phone | + +------+ + | Kevin Martin MD | PCP | | + +------+ + Encounter Details +--------+ + + + + | Date | Type | Department | Care Team | Description | +--------+ + + + + | 11/24/ | Anesthesia | [facility] | Amrita Ryder, | | | 2020 | Event | [facility] | [address] | | | | | INTRA [address] | [place] [address] | | | | | BLVD [place], [place] | [phone] | | | | | [address] | | | | | | [phone] | | | +--------+ + + + + Anesthesia Record + + + + + | Procedure Name | Responsible | Anesthesia Start | Anesthesia Stop Time | | | Anesthesiologist | Time | | + + + + + | COLONOSCOPY (N/A | Amrita Ryder MD | 11/24/19816 | 11/24/19830 | | Rectum) | | | | + + + + + +----+---+ + + | Da | T | Event | Comment | | te | i | | | | | m | | | | | e | | | +----+---+ + + | 02 | 0 | An Start | Reassessment prior to anesthesia induction/procedure. | | /2 | 8 | | | | 6/ | 1 | | | | 20 | 7 | | | | 20 | | | | +----+---+ + + | | 0 | First | | | | 8 | Inc/Proc St | | | | 2 | | | | | 2 | | | +----+---+ + + | | 0 | An | | | | 8 | Induction | | | | 2 | | | | | 2 | | | +----+---+ + + | | 0 | Anesthesia | | | | 8 | Ready | | | | 2 | | | | | 2 | | | +----+---+ + + | | 0 | an stop | | | | 8 | data | | | | 3 | | | | | 1 | | | +----+---+ + + | | 0 | An Stop | Patient handed off to recovery nurse. | | | 3 | | | | | 1 | | | +----+---+ + + +------+ | Meds | +------+ + +--------+ | Name | Total | + +--------+ | lidocaine 2% | 80 mg | + +--------+ | propofol | 220 mg | + +--------+ + + | Name | + + | N2O Flow Rate (L/Min) | + + | O2 Flow Rate (L/Min) | + + | Insp O2 | + + | Exp N2O | + + | Air Flow Rate (L/Min) | + + | Secondary O2 Flow Rate | + + + + | No blood administrations on file. | + + +--------+ + + + | Type | Details | Placement | Removal | +--------+ + + + | Periph | 11/24/19; 0750; Right; | 11/24/19 0750 by | 11/24/19 1011 by | | eral | Antecubital; 20 gauge; removed | Kee Jerome RN | Aimee Dee, | | IV | per policy/procedure; expected | | Technologist | | | removal post discharge; 11/24/19; | | | | | 1011 | | | +--------+ + + + documented in this encounter Social History + +-------+ +--------+------+ | Tobacco [...] + + documented as of this encounter OR Notes Anesthesia Postprocedure Evaluation - Amrita Ryder MD - 11/24/2019 8:31 AM PSTFormirasema monroe of this note might be different from the original. ANESTHESIA POSTANESTHESIA EVALUATION Dylon Melissa 39 y.o. male 1980 [id number] Procedure(s) COLONOSCOPY (N/A Rectum) Cooperates? Yes Mental Status Performs simple tasks. Respiratory Satisfactory - Airway patent (self maintained). Cardiovascular Satisfactory - Blood pressure and heart rate acceptable Temperature Satisfactory Pain Satisfactory N/V Control Satisfactory Hydration Satisfactory - No signs of dehydration Adverse Events ADVERSE EVENTS: No adverse events Vitals Value Taken Time Temp 36.6 C (97.9 F) 11/24/2019 8:32 AM Pulse 67 11/24/2019 8:32 AM Resp 14 11/24/2019 8:32 AM BP 111/68 11/24/2019 8:32 AM Arterial Line BP Arterial Line BP 2 SpO2 100 % 11/24/2019 8:32 AM Electronically signed by Amrita Ryder MD 11/24/2019 8:33 AM [facility] nesthesia Preprocedure Evaluation - Amrita Ryder MD - 11/23/2019 6:36 PM PST ANESTHESIA PREANESTHESIA EVALUATION Dylon Melissa 39 y.o. male 1980 [id number] Procedure(s): COLONOSCOPY (N/A Rectum) Medical,anesthesia, drug, allergy histories reviewed, NPO status verified. (-) perioperative beta-lizbeth/statin not given/taken, reason: not applicable/Not taking Be ta-Lizbeth. Review of Systems / Med History Cardiovascular H/o sick sinus syndrome - 11 day cardiac event monitor in 2016 with HR down to 23 bpm, but asymptomatic. (+) Dysrhythmias: . Pulmonary (-) recent URI.(+) tobacco use.(+) ex-smoker. Gastrointestinal/Hepatic (+) acid reflux. Additional Comments: 39 yo male with BMI 24, GERD, h/o precordial pain, sick sinus syndrome (pt denies any recent sx), with h/o constipation and abd pain s/p J Pouch with diarrhea and rectal bleeding presents for colonoscopy Physical Exam Airway MP I, TM >3 FB, Mouth opening >2 FB. Neck: full ROM, extends >30 degrees. Jaw protrusi on normal. Facial hair present: No CV Rhythm regular. Rate normal. Pulm Clear to auscultation bilaterally. Neuro grossly normal. Anesthesia Plan ASA: 3 Type: General. Plan moderate to deep sedation with periods of unconsciousness, piv Pt refuses blood products Induction: Intravenous. Potential problems: None anticipated. Monitors: Standard ASA monitors. Postop Pain Management: Consent statement: Anesthetic plan, alternatives, risks and benefits discussed with patient. backache, , drug reaction, heart problems, ICU placement, muscle aches, nausea, pain, perioperative CV e vents, respiratory events, stroke, delirium Consenting person understands and agrees to proceed. documented in this en counter Miscellaneous Notes Anesthesia Post-op Handoff - Amrita Ryder MD - 11/24/2019 8:31 AM PSTFormatting of thi s note might be different from the original. ANESTHESIA HANDOFF NOTE Dylonyajaira Youngtt 39 y.o. male 1980 [id number] COLONOSCOPY (N/A Rectum) HANDOFF NOTE Handoff Protocol Used: post-procedure handoff checklist completed The following were completed during the transfer of care: 1. Identification of patient 2. Identification of responsible practitioner (primary service) 3. Discussion of pertinent medical history 4. Discussion of the surgical/procedure course (procedure, reason for surgery, procedure pe rformed) 5. Intraoperative anesthetic management and issues/concerns 6. Expectations/plans for the early post-procedure period 7. Opportunity for questions and acknowledgement of understanding of report from receiving team Patient Location: Other (Bedside) Condition: awake Airway/O2: nasal cannula with O2 Multimodal analgesia: multimodal analgesia used between 6 hours prior to anesthesia start t o PACU discharge The significant anesthesia concerns and VS in Epic were reviewed with the receiving team. Amrita Ryder MD 11/24/2019 8:31 AM [facility] documented in this encounter Plan of Treatment Not on filedocumented as of this encounter Visit Diagnoses Not on filedocumented in this encounter Administered Medications + +--------+ +-------+------+------+ | Medication Order | MAR | Action | Dose | Rate | Site | | | Action | Date | | | | + +--------+ +-------+------+------+ | lidocaine (PF) 2% injection | Given | 11/24/19 | 80 mg | | | | Intravenous, PRN, Starting Wed | | 20 8:22 | | | | | 11/24/19 at 0822, Anesthesia | | AM PST | | | | | Intra-op | | | | | | + +--------+ +-------+------+------+ +---+---+ | | | +---+---+ + +-------+ +-------+---+---+ | propofol (DIPRIVAN) injection | Given | 11/24/19 | 20 mg | | | | Intravenous, PRN, Starting Wed | | 20 8:30 | | | | | 11/24/19 at 0822, Anesthesia | | AM PST | | | | | Intra-op | | | | | | + +-------+ +-------+---+---+ +-------+ +-------+---+---+ | Given | 11/24/19 | 20 mg | | | | | 20 8:29 | | | | | | AM PST | | | | +-------+ +-------+---+---+ | Given | 11/24/19 | 20 mg | | | | | 20 8:28 | | | | | | AM PST | | | | +-------+ +-------+---+---+ +---+---+ | | | +---+---+ documented in this encounter"
--- OUTSIDE RECORDS SUMMARY | ~2020-05-03 | XMS | Encounter Summary ---
Demographics + + + | Address | [address] | | | [place] [address] | + + + | Home Phone | | + + + | Preferred Language | Unknown | + + + | Marital Status | Single | + + + | Roman Catholic Affiliation | Unknown | + + + | Race | Unknown | + + + | Ethnic Group | Unknown | + + + Author + + + | Author | [facility] | | | and [place] | + + + | Organization | [facility] | | | and [place] | [...] Team Providers + +------+ + | Care Hospitalist Physician Name | Role | Phone | + +------+ + | Kevin Martin MD | PCP | | + +------+ + Reason for Visit + +--------+ + | Reason | Onset | Comments | | | Date | | + +--------+ + | Procedure | 06/18/ | | | | 2019 | | + +--------+ + Encounter Details +--------+ + + + + | Date | Type | Department | Care Team | Description | +--------+ + + + + | 06/18/ | Telephone | [facility] | Delroy Lyons, | Procedure | | 2018 | | GENERAL SURGERY [address] | MD [address] | | | | | [address] | [address] | | | | | [place], [place] | [place] [address] | | | | | [address] | [phone] | | | | | [phone] | | | +--------+ + + + [...] Miscellaneous Notes Telephone Encounter - Trudy Sloan 06/18/2019 9:23 AM PDTRochelleft message bandar Maloney at [facility] to contact our office to schedule patients surgery. documented in this encounter Plan of Treatment Not on filedocumented as of this encounter Visit Diagnoses Not on filedocumented in this encounter"
--- OUTSIDE RECORDS SUMMARY | ~2020-05-03 | XMS | Encounter Summary ---
Demographics + + + | Address | [address] | | | [place] [address] | + + + | Home Phone | | + + + | Preferred Language | Unknown | + + + | Marital Status | Single | + + + | Rastafari Affiliation | Unknown | + + + | Race | Unknown | + + + | Ethnic Group | Unknown | + + + Author + + + | Author | [facility] | | | and [place] | + + + | Organization | [facility] | | | and [place] | + + + | Address | Unknown | + + + | Phone | Unavailable | + + + Support + + +---------+ + | Name | Relationship | Address | Phone | + + +---------+ + | [place] | ECON | Unknown | | | Corrections | | | | + + +---------+ + Care Team Providers + +------+ + | Care Test Facility Engineer Name | Role | Phone | + +------+ + | Kevin Martin MD | PCP | | + +------+ + Encounter Details +--------+ + + + + | Date | Type | Department | Care Team | Description | +--------+ + + + + | 10/06/ | Orders Only | [facility] | Juanpablo Ferrara | | | 2019 | | GENERAL SURGERY [address] | [address] | | | | | [address] | | | | | | [place] | | | | | | [address] | | | | | | [phone] | | | +--------+ + + + [...]
--- OUTSIDE RECORDS SUMMARY | ~2020-05-03 | XMS | Encounter Summary ---
Demographics + + + | Address | [address] | | | [place] [address] | + + + | Home Phone | | + + + | Preferred Language | Unknown | + + + | Marital Status | Single | + + + | Scientologist Affiliation | Unknown | + + + | Race | Unknown | + + + | Ethnic Group | Unknown | + + + Author + + + | Author | [facility] | | | and [place] | + + + | Organization | [facility] | | | and [place] | + + + | Address | Unknown | + + + | Phone | Unavailable | + + + Support + + +---------+ + | Name | Relationship | Address | Phone | + + +---------+ + | [place] | ECON | Unknown | | | Corrections | | | | + + +---------+ + Care Team Providers + +------+ + | Care State Assessed Properties Director Name | Role | Phone | [...] Radiology | Diagnoses | Ailbrendani, | [facility] | | Review | | | Lower | Delroy Miller MD | REGIONAL | | | | | abdominal | [address] | MEDICAL | | | | | pain | [address] | [address] | | | | | Procedures | [address] | | | | | CT Abdomen | [place], [place] | [place] | | | | | Pelvis w | [address] | [address] | | | | | Contrast | Phone: | Phone: | | | | | | [phone] | [phone] | | | | | | Fax: | Fax: | | | | | | [phone] | [phone] | + +--------+ + + + + Encounter Details +--------+ + + + + | Date | Type | Department | Care Team | Description | +--------+ + + + + | 11/24/ | Orders Only | [facility] | Delroy Lyons, | Lower abdominal pain | | 2020 | | GENERAL SURGERY [address] | [address] | (Primary Dx) | | | | [address] | [address] | | | | | [place], [place] | [place] [address] | | | | | [address] | [phone] | | | | | [phone] | | | +--------+ + + + [...] Not on filedocumented as of this encounter Results CT Abdomen Pelvis w [...] + + | Alphonso, Rad Results In 11/24/2019 1:05 PM PST | | CT [...] + | Diagnosis | + + | Lower abdominal pain - Primary Abdominal pain, other specified site | + + documented in this encounter"
--- OUTSIDE RECORDS SUMMARY | ~2020-05-03 | XMS | Encounter Summary ---
Demographics + + + | Address | [address] | | | [place] [address] | + + + | Home Phone | | + + + | Preferred Language | Unknown | + + + | Marital Status | Single | + + + | Confucianism Affiliation | Unknown | + + + | Race | Unknown | + + + | Ethnic Group | Unknown | + + + Author + + + | Author | [facility] | | | and [place] | + + + | Organization | [facility] | | | and [place] | + + + | Address | Unknown | + + + | Phone | Unavailable | + + + Support + + +---------+ + | Name | Relationship | Address | Phone | + + +---------+ + | [place] | ECON | Unknown | | | Corrections | | | | + + +---------+ + Care Team Providers + +------+ + | Care Professor Of French Name | Role | Phone | + [...] + + | 11/22/ | Telephone | [facility] | Juanpablo Ferrara | Other (Prep) | | 2020 | | GENERAL SURGERY [address] | B, RN | | | | | [address] | | | | | | [place] | | | | | | [address] | | | | | | [phone] | | | +--------+ + + + [...]
--- OUTSIDE RECORDS SUMMARY | ~2020-05-03 | XMS | Encounter Summary ---
Demographics + + + | Address | [address] | | | [place] [address] | + + + | Home Phone [...] + + + | Author | [facility] | | | and [place] | + + + | Organization | [facility] | | | and [place] [...] Team Providers + +------+ + | Care Mix Chemist Name | Role | Phone | + +------+ + | Kevin Nath MD | PCP | | + +------+ + Encounter Details +--------+---------+ + + + | Date | Type | Department | Care Team | Description | +--------+---------+ + + + | 06/17/ | Office | [facility] | Delroy Lyons, | Diarrhea, | | 2019 | Visit | GENERAL SURGERY [address] | [address] | unspecified type | | | | [address] | [address] | (Primary Dx) | | | | [place], [place] | [place] [address] | | | | | [address] | [phone] | | | | | [phone] | | | +--------+---------+ + + + [...] more runny stool and fo rmed stool. Rotoformer Backtender needed: no Last colonoscopy: yes Rectal Bleeding:yes [...]
--- OUTSIDE RECORDS SUMMARY | ~2020-05-03 | XMS | Encounter Summary ---
Demographics + + + | Address | [address] | | | [place] [address] | + + + | Home Phone | | + + + | Preferred Language | Unknown | + + + | Marital Status | Single | + + + | Yazdanism Affiliation | Unknown | + + + | Race | Unknown | + + + | Ethnic Group | Unknown | + + + Author + + + | Author | [facility] | | | and [place] | + + + | Organization | [facility] | | | and [place] | + + + | Address | Unknown | + + + | Phone | Unavailable | + + + Support + + +---------+ + | Name | Relationship | Address | Phone | + + +---------+ + | [place] | ECON | Unknown | | | Corrections | | | | + + +---------+ + Care Team Providers + +------+ + | Care Peoplesoft Taleo Manager Name | Role | Phone | [...] + + | 10/12/ | Telephone | [facility] | Delroy Lyons, | Procedure | | 2020 | | GENERAL SURGERY [address] | MD [address] | (rescheduled | | | | [address] | [address] | 10/20/19) | | | | [place], [place] | [place] [address] | | | | | [address] | [phone] | | | | | [phone] | | | +--------+ + + + [...] Trudy Sloan 10/12/2019 9:26 AM [place] from [facility] contacted our office and requested to reschedule this patients scope with Dr Omid Burnette 11/24/19 and Trice Carnes requested patient be first of the day to schedule transportation. No further questions or concerns. documented in this encounter Plan of Treatment Not on filedocumented as of this encounter Visit Diagnoses Not on filedocumented in this encounter"
--- OUTSIDE RECORDS SUMMARY | ~2020-05-03 | XMS | Encounter Summary ---
Demographics + + + | Address | [address] | | | [place] [address] | + + + | Home Phone | | + + + | Preferred Language | Unknown | + + + | Marital Status | Single | + + + | Advent Affiliation | Unknown | + + + | Race | Unknown | + + + | Ethnic Group | Unknown | + + + Author + + + | Author | [facility] | | | and [place] | + + + | Organization | [facility] | | | and [place] | + + + | Address | Unknown | + + + | Phone | Unavailable | + + + Support + + +---------+ + | Name | Relationship | Address | Phone | + + +---------+ + | [place] | ECON | Unknown | | | Corrections | | | | + + +---------+ + Care Team Providers + +------+ + | Care Ampoule Washing Machine Operator Name | Role | Phone [...] +--------+--------+ + + + + Encounter Details +--------+---------+ + + + | Date | Type | Department | Care Team | Description | +--------+---------+ + + + | 11/24/ | Surgery | [facility] | Delroy Lyons, | COLONOSCOPY | | 2020 | | [facility] | [address] | | | | | INTRA OP [address] | [address] | | | | | [address] [place], [place] | [place] [address] | | | | | [address] | [phone] | | | | | [phone] | | | +--------+---------+ + + + [...] + + + | Blood Pressure | 111/68 | 11/24/2019 8:32 AM | | | | | PST | | + + + + + | Pulse | 67 | 11/24/2019 8:32 AM | | | | | PST | | + + + + + | Temperature | 36.6 C (97.9 F) | 11/24/2019 8:32 AM | | | | | PST | | + + + + + | Respiratory Rate | 14 | 11/24/2019 8:32 AM | | | | | PST | | + + + + + | Oxygen Saturation | 100% | 11/24/2019 8:32 AM | | | | | PST [...] more runny stool and fo rmed stool. Sleep Tech needed: no Last colonoscopy: yes Rectal Bleeding:yes [...] | + +--------+ + + + | [place] COLONOSCOPY FLX | Routin | 11/24/2019 | [...] component was performed | | | by [facility], [address] [place] [address] (Medical | | | Director: Margarita Suarez MD; CLIA# [id number]). Professional | | | [facility] | | | [address] (Medical | | | Director: Lee Hathaway M.D.; CLIA#: [id number]). Diagnostician: | | | Margarita Suarez MDPathologistElectronically Signed 11/25/2019 | | |The Gross Description was prepared using a voice recognition system. The report was revie wed for accuracy; however, sound-alike word errors, addition and/or deletions may occur. I f there is any | | |question about this report, please contact Client Services. | | | | | |PERFORMING LABORATORY: | | |The technical component was performed by [facility], [address] [place] [address] (Internet Marketing Consultant: Margarita Suarez MD; CLIA# [id number]). Professional interpretation was performed by | | |[facility] (Internet Marketing Consultant: Lee Hathaway M.D.; CLIA#: [id number]). | | | | | |Diagnostician: Margarita [...] Performed At | + + + | [facility] | [facility] | | [facility] | PROVATION | | CenterGastroenterology | | | Patient Name: Dylon Melissa | | | Procedure Date: 11/24/2019 8:15 AMMRN: [id number] | | | of : 1980 | [...] | | 8:15 AMNumber of Addenda: 0 [facility] | | | | | | | | |Delroy Lyons, | | |11/24/2019 9:08:36 AM | | |This report has been signed electronically. | | | | | |Note Initiated On: 11/24/2019 8:15 AM | | |Number of Addenda: 0 | | | | | | [facility] | | + + + + +---------+ + + | Performing | Address | City/State/[facility] Centercode | Phone Number | | Organization [...]
--- OUTSIDE RECORDS SUMMARY | ~2020-05-03 | XMS | Encounter Summary ---
Demographics + + + | Address | [address] | | | [place] [address] | + + + | Home Phone | | + + + | Preferred Language | Unknown | + + + | Marital Status | Single | + + + | Mormonism Affiliation | Unknown | + + + | Race | Unknown | + + + | Ethnic Group | Unknown | + + + Author + + + | Author | [facility] | | | and [place] | + + + | Organization | [facility] | | | and [...] Team Providers + +------+ + | Care Tube Balancer Name | Role | Phone | + [...] Radiology | Diagnoses | Ailbrendani, | [facility] | | Review | | | Lower | Delroy Miller MD | REGIONAL | | | | | abdominal | [address] | MEDICAL | | | | | pain | [address] | CENTER [address] | | | | | Procedures | [address] | | | | | CT Abdomen | [place], [place] | [place], [place] | | | | | Pelvis w | [address] | [address] | | | | | Contrast | Phone: | Phone: | | | | | | [phone] | [phone] | | | | | | Fax: | Fax: | | | | | | [phone] | [phone] | + +--------+ + + + + [...] + + | 11/24/ | Hospital | [facility] | Delroy Lyons, | Diarrhea, | | 2020 | Encounter | [facility] | [address] | unspecified type; | | | | INTRA OP [address] | [address] | Lower abdominal pain | | | | BLVD [place], [place] | [place] [address] | | | | | [address] | [phone] | | | | | [phone] | | | +--------+ + + + [...] more runny stool and fo rmed stool. Supervisor Rework needed: no Last colonoscopy: yes Rectal Bleeding:yes [...] | + +--------+ + + + | [place] COLONOSCOPY FLX | Routin | 11/24/2019 | [...] component was performed | | | by [facility], [address] [place] [address] (Medical | | | Director: Margarita Suarez MD; CLIA# [id number]). Professional | | | interpretation was performed [facility] | | | [address] (Medical | | | Director: Lee Hathaway M.D.; CLIA#: [id number]). Diagnostician: | | | Margarita ODELLathologistElectronically Signed [...] | |The technical component was performed by [facility], [address] [place] [address] (Public Health Professor: Margarita Suarez MD; CLIA# [id number]). Professional interpretation was performed by | | |[place] [address] (Public Health Professor: Lee Hathaway M.D.; CLIA#: [id number]). | | | | | |Diagnostician: Margarita [...] Performed At | + + + | [facility] | [facility] | | [facility] | PROVATION | | CenterGastroenterology | | | Patient Name: Dylon Melissa | | | Procedure Date: 11/24/2019 8:15 AMMRN: [id number] | | | of : 1980 | [...] | | 8:15 AMNumber of Addenda: 0 [facility] | | | | | | | | |Delroy Lyons, | | |11/24/2019 9:08:36 AM | | |This report has been signed electronically. | | | | | |Note Initiated On: 11/24/2019 8:15 AM | | |Number of Addenda: 0 | | | | | | [facility] | | + + + + +---------+ + + | Performing | Address | City/State/[facility] Hospitalcode | Phone Number | | Organization | [...]
--- OUTSIDE RECORDS SUMMARY | ~2020-05-03 | XMS | Encounter Summary ---
Demographics + + + | Address | [address] | | | [place] [address] | + + + | Home Phone | | + + + | Preferred Language | Unknown | + + + | Marital Status | Single | + + + | Buddhist Affiliation | Unknown | + + + | Race | Unknown | + + + | Ethnic Group | Unknown | + + + Author + + + | Author | [facility] | | | and [place] | + + + | Organization | [facility] | | | and [place] | + + + | Address | Unknown | + + + | Phone | Unavailable | + + + Support + + +---------+ + | Name | Relationship | Address | Phone | + + +---------+ + | [place] | ECON | Unknown | | | Corrections | | | | + + +---------+ + Care Team Providers + +------+ + | Care Enrollment Coordinator Name | Role | Phone | + +------+ + | Kevin Martin MD | PCP | | + +------+ + Encounter Details +--------+ + + + + | Date | Type | Department | Care Team | Description | +--------+ + + + + | 09/16/ | Orders Only | [facility] | Alise, | Diarrhea, | | 2019 | | GENERAL SURGERY [address] | [address] | unspecified type | | | | [address] | [address] | (Primary Dx) | | | | [place], [place] | [place] [address] | | | | | [address] | [phone] | | | | | [phone] | | | +--------+ + + + [...]
--- OUTSIDE RECORDS SUMMARY | ~2020-05-03 | XMS | Encounter Summary ---
Demographics + + + | Address | [address] | | | [place] [address] | + + + | Home Phone [...] | Organization | [facility] | | | and [...] Team Providers + +------+ + | Care Base Loader Name | Role | Phone | [...] + + | 07/27/ | Telephone | [facility] | Juanpablo Ferrara | Other (prep) | | 2018 | | GENERAL SURGERY [address] | B, RN | | | | | [address] | | | | | | [place] | | | | | | [address] | | | | | | [phone] | | | +--------+ + + + [...]
--- OUTSIDE RECORDS SUMMARY | ~2020-05-03 | XMS | Encounter Summary ---
Demographics + + + | Address | [address] | | | [place] [address] | + + + | Home Phone | | + + + | Preferred Language | Unknown | + + + | Marital Status | Single | + + + | Samaritan Affiliation | Unknown | + + + | Race | Unknown | + + + | Ethnic Group | Unknown | + + + Author + + + | Author | [facility] | | | and [place] | + + + | Organization | [facility] | | | and [place] [...] Team Providers + +------+ + | Care Account Specialist Name | Role | Phone | [...] + + | 10/11/ | Telephone | [facility] | Delroy Lyons, | Procedure | | 2020 | | GENERAL SURGERY [address] | MD [address] | (Reschedule 10/20/19 | | | | [address] | [address] | Procedure) | | | | [place], [place] | [place] [address] | | | | | [address] | [phone] | | | | | [phone] | | | +--------+ + + + [...] Pamela Brenner - 10/11/2019 3:01 PM PSTKim[facility] regard ing Procedure (Reschedule 10/20/19 Procedure) and would like a call back. Additional Call Details: Calling to reschedule patient's 10/20/19 colonoscopy. Please call back at [phone]. If this is a symptom based call, was patient offered triage? Not Applicable If this is a symptom based call and you were unable to immediately transfer the call to a p roviori block operator was caller made aware that if at any time he feels it is an emergency they erin uld call 911 or go to the nearest emergency room? not applicable documented in this encounter Plan of Treatment Not on filedocumented as of this encounter Visit Diagnoses Not on filedocumented in this encounter"
--- OUTSIDE RECORDS SUMMARY | ~2020-05-03 | XMS | Clinical Summary ---
Demographics + + + | Address | [address] | | | [place] [address] | + + + | Home Phone [...] + | Organization | [facility] | | | and [place] [...] Team Providers + +------+ + | Care Site Leasing Agent Name | Role | Phone | + [...] automatically from request for surgery | | [id number] | + + + + + | [...] the age of 13, he was in [place] at | | time, was taken to [...] to rule out | | CAD.ECG, 03/12/2016 ([facility]): NSR, 74bpm.ECG, 04/19/2016 | | ([facility]): sinus [...] | | | | | | activity ([facility]); | | | | | | Functional [...] Tech 04/24/2020 7:45 AM | | | [facility] Neurodiagnostic Dept [address] [place] [address] | | | [place] [address] Patient: Dylon Bahena ID: [id number] : | | | 1980 Age: 39 Gender: male Room: 18 Physician: Danie | | | Leno Phonograph Needle Tip Maker: Dawn Zavala Ref. Physician: Fredy Yeager MD [...] | | | | | performed at [facility] | | | | | | [address];[place], [place] | | | | | | [address] | | | | + + + + + + + + | Specimen | + + | Blood | + + + + + + + | Performing | Address | City/State/Zipcode | Phone Number | | Organization | | | | + + + + + | [facility] | [address] | [place] [address] | [phone] | + + + + + CBC [...] | | | Absolute | performed at [facility], [address] | [address] | LABORATORY | | | | [address], | | | | | | [place] [address] | | | | + + + + + + + + | Specimen | + + | Blood | + + + + + + + | Performing | Address | City/State/Zipcode | Phone Number | | Organization | | | | + + + + + | [facility] | [address] | [place] [address] | [phone] | + + + + + Magnesium (04/24/2020 5:30 AM PDT) + + + + + + | Component | Value | Ref Range | Performed | Pathologist | | | | | At | Signature | + + + + + + | Magnesium | 2.0Comment: Testing | 1.7 - 2.4 mg/dL | [facility] | | | | performed at [facility] [place];[address] | | LABORATORY | | | | [address];[place] | | | | | | [address] | | | | + + + + + + + + | Specimen | + + | Blood | + + + + + + + | Performing | Address | City/State/Zipcode | Phone Number | | Organization | | | | + + + + + | [facility] | [address] | [place] [address] | [phone] | + + + + + Comprehensive [...] | | | | | performed at [facility], [address] | | | | | | [facility], | | | | | | [place] [address] | | | | + + + + + + + + | Specimen | + + | Blood | + + + + + + + | Performing | Address | City/State/Zipcode | Phone Number | | Organization | | | | + + + + + | [facility] | [address] | [place] [address] | [phone] | + + + + + MRI [...] Procedure Note | + + | Alphonso, [id number] - 04/24/2020 5:36 AM PDT | | [...] | | | | | performed at [facility] | | | | | | [facility];[place], [place] | | | | | | [address] | | | | + + + + + + + + | Specimen | + + | Tissue - Entire | | nasopharynx (body | | structure) | + + + + + + + | Performing | Address | City/State/Zipcode | Phone Number | | Organization | | | | + + + + + | [facility] | [address] | [place] [address] | [phone] | + + + + + from [...] +--------+-------+---------+--------+ | DEPARTMENT OF | CORRCT | [id number] | | | | Indemn | | [...] | Non | 09/[birth year] | | [address] | | [place] | ate | Relative | 1902 | [phone] | [place] [address] | | | | | | 9 (Home) | | | | | | | [phone] | | | | | | | 0 (Work) | | + +--------+ +--------+ + + | Dylon Melissa | Person | Self | [birth year] | [address] | | | al/Fam | | 1981 | [phone] | [place] [address] | | | sameer | | | 9 (Home) | | + +--------+ +--------+ + + Advance Directives + + + + + | Type | Date Recorded | Patient | Explanation | | | | Tester Equipment | | + + + + + | Power of | | | | | Rag Cutting Machine Tender | | | | + + + [...]
--- OUTSIDE RECORDS SUMMARY | ~2020-05-03 | XMS | Encounter Summary ---
Demographics + + + | Address | [address] | | | [place] [address] | + + + | Home Phone | | + + + | Preferred Language | Unknown | + + + | Marital Status | Single | + + + | Amish Affiliation | Unknown | + + + | Race | Unknown | + + + | Ethnic Group | Unknown | + + + Author + + + | Author | [facility] | | | and [place] | + + + | Organization | [facility] | | | and [place] | + + + | Address | Unknown | + + + | Phone | Unavailable | + + + Support + + +---------+ + | Name | Relationship | Address | Phone | + + +---------+ + | [place] | ECON | Unknown | | | Corrections | | | | + + +---------+ + Care Team Providers + +------+ + | Care Owner Name | Role | Phone | + [...] + + | 07/27/ | Telephone | [facility] | Delroy Lyons, | Other (surgery) | | 2019 | | GENERAL SURGERY [address] | MD [address] | | | | | [address] | [address] | | | | | [place], [place] | [place] [address] | | | | | [address] | [phone] | | | | | [phone] | | | +--------+ + + + [...] 07/27/2019 3:51 PM PDTSpoke with Amara at [facility] (scheduling for [facility]) to cancel scope with Dr Noé oleary. Patient does not want to reschedule. No further questions or concerns. elephone Encounter - [place], [place] Raymond - [facility]2019 [facility] and would like a call back. Additional Call Details: Called to cancel 07/28/19 appointment due to patient refusal. No callback needed. If this is a symptom based call, was patient offered triage? Not Applicable If this is a symptom based call and you were unable to immediately transfer the call to a bruce yap stenotype operator was caller made aware that if at any time he feels it is an emergency they erin uld call 911 or go to the nearest emergency room? not applicable documented in this encounter Plan of Treatment Not on filedocumented as of this encounter Visit Diagnoses Not on filedocumented in this encounter"
--- OUTSIDE RECORDS SUMMARY | 2020-05-03 20:42 | XMS ---
PreManage Notification: KIARA YUN Security Lens Coating Technician Events No recent Security Events currently on file CRITERIA MET - [facility] - 2 Visits in 30 Days CARE PROVIDERS There are no care providers on record at this time. Yarely has no Care Guidelines for this patient. Keely VISIT COUNT (12 MO.) [address] [facility] TOTAL 3 NOTE: Visits indicate total known visits. ED/C VISIT TRACKING (12 MO.) 05/03/2020 20:40 [facility] [place] TYPE: Emergency COMPLAINT: - VISION ISSUE 04/24/2020 23:39 [facility] [place] TYPE: Emergency COMPLAINT: - SIEZURE DIAGNOSES: - Allergy status to penicillin - Unspecified convulsions - Conversion disorder with seizures or convulsions - Other long-term (current) drug therapy - Allergy status to other antibiotic agents status 04/21/2020 20:34 [facility] TYPE: Emergency COMPLAINT: - MULTIPLE COMPLAINTS INPATIENT VISIT TRACKING (12 MO.) 04/23/2020 20:53 [facility] [place] TYPE: Neurology DIAGNOSES: - Gastro-esophageal reflux disease with esophagitis - Other chronic pain - Unspecified mood [affective] disorder - Seizure - Conversion disorder with motor symptom or deficit - Unspecified convulsions - Unspecified abdominal pain - Syncope and collapse - Noninfective gastroenteritis and colitis, unspecified 04/21/2020 20:35 [facility] [place] TYPE: Observation COMPLAINT: - VOMITING,URINARY RETENTION,SYNCOPE DIAGNOSES: - Nonspecific elevation of levels of transaminase and lactic ac - Dehydration - Unspecified abdominal pain - Allergy status to other antibiotic agents status - Unspecified convulsions - Nausea with vomiting, unspecified - Allergy status to penicillin - Retention of urine, unspecified - Other chronic pain - Other long-term (current) drug therapy - Syncope and collapse [email or web address]
== END 2020-05-03 22:54 | disposition home or self-care (01) ==
LOC: ED 20:40
DX: S00.83XA Contusion of other part of head, initial encounter (principal); Z87.891 Personal history of nicotine dependence; Z88.0 Allergy status to penicillin; Z88.1 Allergy status to other antibiotic agents; W19.XXXA Unspecified fall, initial encounter
CPT/HCPCS: 70450; 70486; 99284-25